=== PATIENT | male | born 1950 | race Caucasian/White ===

== ENCOUNTER 2023-07-25 05:31 | Inpatient (IN) ==
[2023-07-25] MEDS: ALBUT/IPRATROP 3MG/0.5MG NEB 3 ML VIAL NEB STA (05:53)
[2023-07-25 06:13] LABS: Hemoglobin 11.5 g/dl (14.0-18.0); Mean Corpuscular Hemoglobin 29.9 pg (25.0-34.0); Mean Corpuscular Hgb Conc 32.9 g/dL (32.0-36.0); Mean Corpuscular Volume 90.9 fL (80.0-100.0); Mean Platelet Volume 9.4 fL (9.4-12.4); Platelet Count 256 K/uL (130-400); RDW Coefficient of Variation 13.6 % (11.5-14.5); RDW Standard Deviation 45.5 fL (36.4-46.3); Red Blood Count 3.85 M/uL (4.70-6.10); White Blood Count 14.53 K/ul (4.8-10.8)
[2023-07-25 06:28] LABS: Prothrombin Time 55.1 Seconds (9.0-12.0)
[2023-07-25 06:48] LABS: INR 5.6 (0.9-1.1)
[2023-07-25 06:52] LABS: Adenovirus PCR Not Detected (NotDetected); Bordetella parapertussis PCR Not Detected (NotDetected); Bordetella pertussis PCR Not Detected (NotDetected); Chlamydia pneumoniae PCR Not Detected (NotDetected); Coronavirus 229E PCR Not Detected (NotDetected); Coronavirus CoV-2 (COVID19)PCR Not Detected (NotDetected); Coronavirus HKU1 PCR Not Detected (NotDetected); Coronavirus NL63 PCR Not Detected (NotDetected); Coronavirus OC43PCR Not Detected (NotDetected); Human Metapneumovirus PCR Not Detected (NotDetected); Influenza A PCR Not Detected (NotDetected); Influenza B PCR Not Detected (NotDetected); Mycoplasma pneumoniae PCR Not Detected (NotDetected); Parainfluenza Virus 1 PCR Not Detected (NotDetected); Parainfluenza Virus 2 PCR Not Detected (NotDetected); Parainfluenza Virus 3 PCR Not Detected (NotDetected); Parainfluenza Virus 4 PCR Not Detected (NotDetected); Respiratory Syncytial VirusPCR Not Detected (NotDetected); Rhinovirus/Enterovirus PCR Not Detected (NotDetected)
[2023-07-25 07:01] LABS: Basophils # (auto) 0.04 K/uL (0.00-0.20); Basophils % (auto) 0.3 %; Eosinophils # (auto) 0.04 K/uL (0.00-0.50); Eosinophils % (auto) 0.3 %; Immature Granulocytes # (auto) 0.03 K/uL (0.01-0.20); Immature Granulocytes % (auto) 0.2 %; Lymphocytes # (auto) 0.24 K/uL (1.20-3.40); Lymphocytes % (auto) 1.7 %; Monocytes # (auto) 0.92 K/uL (0.11-0.59); Monocytes % (auto) 6.3 %; Neutrophils # (auto) 13.26 K/uL (1.40-6.50); Neutrophils % (auto) 91.2 %; Ovalocytes 1+; Toxic Granulation 2+
--- NOTE | 2023-07-25 07:04 | XRay Report ---
XR chest 1V portable HISTORY: 73 years-old Male sob acute shortness of breath COMPARISON: KUB of same day TECHNIQUE: AP view of the chest FINDINGS: Partially imaged abdominal aortic endograft. No pneumothorax, pleural effusion or airspace consolidat ion. Eventration of the right hemidiaphragm. The heart is normal in size. The bones appear grossly in tact. IMPRESSION: No acute process. ACT 112: Negative or not required by law. The above report was generated using voice recognition software. It may contain grammatical, syntax o r spelling errors. Electronically signed by: Melvin Gonzalez M.D. 07/25/2023 7:02 AM
--- NOTE | 2023-07-25 07:04 | Emergency Department Note ---
Impression & Plan Acute exacerbation of chronic obstructive pulmonary disease, Shortness of breath, Ileus, Aspiration pneumonia, Supratherapeutic INR, Leakage of aortic graft ED Provider Note NAME: MAGDALENA TRACEY AGE: 73 SEX: M : 1950 ARRIVES VIA: Ambulance INFORMANT: Patient, ED PROVIDER(S): Marvin Jacob MD CHIEF COMPLAINT: Shortness of breath/tachycardia HPI: This is a 73-year-old male with recent history of AAA repair complicated by CVA, ileus presenting for shortness of breath. Patient notes that he does feel significantly short of breath at this time. Has been gone since last evening. He is a somewhat limited historian mentions that his abdomen has been distended but he has no current pain. He notes that he does take Coumadin as a blood thinner. He has no current chest pain. He reports no fevers. He reports that his recent stroke made his left side of his right side of his body slightly more weak. ROS: See above HPI for pertinent positives & negatives. A total of 10 systems reviewed and were otherwise negative. PHYSICAL EXAMINATION: General: resting comfortably in no acute distress Head: Normocephalic and atraumatic Eyes: Normal inspection, extraocular muscles intact Ear, nose, throat: Normal external exam Neck: Normal range of motion Respiratory: lungs clear to auscultation bilaterally Cardiovascular: Regular rate/rhythm, no murmur GI: Distended abdomen without tenderness Extremities: moves all extremities Neuro: Alert, awake, no focal deficits, no motor drift in all extremities Skin: Warm, dry, and intact MEDICAL DECISION MAKING: This is 73-year-old male with history of recent AAA repair/CVA/ileus presented for shortness of breath patient history of A-fib as well as COPD. Currently on warfarin. -INR is over 5 at this time. -ECG independently interpreted by me with likely atrial fibrillation, rate of 136, normal QRS, normal QTc, no ST segment elevations consistent with STEMI criteria -Patient is distended in his abdomen but is currently no pain. Will do CTA of the chest/abdomen due to rule out aortic injury due to his recent repair. -Chest Xray independently interpreted by me showing no pneumothorax, focal opacity, or pleural effusions. -KUB of the abdomen/pelvis shows distended bowel loops as independently by me -CT of the chest does reveal dissection/PE, possible aspiration -CT of the abdomen/pelvis does reveal endoleak as well as acute renal infarct. I discussed these findings with on-call vascular surgery at [facility] who states that upon record review that these are similar findings when patient was the hospital a few weeks ago. I was able to confirm this by looking at outside records as reported by medical case manager. Appears that this renal infarct is similar as well as the endoleak. Otherwise patient would not require transfer due to his vascular etiology. He is having shortness of breath, somewhat improved after albuterol. Will give steroids at this time for suspected COPD exacerbation. Otherwise there is read as of ileus however patient had 2 large bowel movements here. -Will admit to hospitalist service here for further workup/treatment of his respiratory condition including possible COPD exacerbation Differential diagnosis: Dissection, endoleak, COPD, pneumonia, ileus ER treatment provided: See below Diagnostics interpreted by me: ECG: See above Cardiac Monitoring: An order was placed for continuous cardiac monitoring. The monitor shows a rate of 118 with atrial fibrillation rhythm. Laboratory studies: As stated above and show below. Imaging studies: See below. Past Med/Surg History Medical History AAA (abdominal aortic aneurysm) CAD (coronary artery disease) hx of mI in 1992 HLD (hyperlipidemia) HTN (hypertension) COPD (chronic obstructive pulmonary disease) History of CVA (cerebrovascular accident) PAF (paroxysmal atrial fibrillation) Chronic hypoxic respiratory failure T2DM (type 2 diabetes mellitus) Surgical History H/O thoracic aortic aneurysm repair 2021 Hx of cataract surgery History of tonsillectomy and adenoidectomy Hx of appendectomy S/P AAA repair 07/14/23 endovascular repair of endoleak S/P EVAR 02/20/2021 with [place] Stent graft performed at [facility] in [place]. He presented to [facility] 04/21/2021 with acute, severe epigastric pain, nausea, and vomiting. Work-up included CT abdomen/pelvis revealing s/p EVAR with possible type 1 vs type 3 endoleak. S/P coil embolization of aneurysmal sac and coil embolization of feeding lumbar arteries by Dr. Carrillo on 07/10/2021 Post operative imaging demonstrated persistent endoleak, with some concern regarding a Type 1a endoleak. S/P physician modified endograft on 07/14/2023 Family History Other Diabetes Social History Smoking Status: Former smoker Tobacco Type: Cigarettes Preferred Language: Turkish Feels Safe at Home: Yes Allergies Allergies Allergy/AdvReac Type Severity Reaction Status Date / Time diltiazem Allergy Severe throat Verified 07/25/23 10:55 tightness doxycycline Allergy Severe SOB Verified 07/25/23 10:55 mometasone furoate AdvReac Mild nausea and Verified 07/25/23 10:55 [From Asmaneconor Martinez] vomiting Home Meds Home Medications Medication Instructions Recorded Confirmed atorvastatin 40 mg tablet 80 mg PO DAILY 07/25/23 07/25/23 baclofen 10 mg tablet 10 mg PO Q8H 07/25/23 07/25/23 clopidogrel 75 mg tablet 75 mg PO DAILY 07/25/23 07/25/23 cyproheptadine 4 mg tablet 4 mg PO HS 07/25/23 07/25/23 docusate sodium 100 mg tablet 100 mg PO BID 07/25/23 07/25/23 fluticasone furoate 100 1 inh inhalation DAILY 07/25/23 07/25/23 mcg-vilanterol 25 mcg/dose inhalation powder gabapentin 300 mg capsule 300 mg PO TID 07/25/23 07/25/23 pantoprazole 40 mg tablet,delayed 40 mg PO DAILY 07/25/23 07/25/23 release therapeutic multivitamin 1 tab PO DAILY 07/25/23 07/25/23 umeclidinium 62.5 mcg/actuation 1 inh inhalation DAILY 07/25/23 07/25/23 blister powder for inhalation ursodiol 250 mg tablet 125 mg PO BID 07/25/23 07/25/23 warfarin 5 mg tablet 10 mg PO DAILY 07/25/23 07/25/23 Results & Data (ED) Vital Signs Vital Signs - 24 hr 07/25/23 05:42 07/25/23 05:47 07/25/23 05:47 Temperature 36.8 C Temperature Source Oral Pulse Rate 134 H 134 H Pulse Rate [Apical] Pulse Rhythm Regular Pulse Rhythm [Apical] Pulse Strength Normal Pulse Strength [Apical] Respiratory Rate 27 H Respiratory Effort / Characteristics Non-Labored Spontaneous Short of Breath SOB on Exertion Non-Labored Spontaneous Short of Breath SOB on Exertion Respiratory Pattern Tachypnea Tachypnea Blood Pressure 172/109 H Blood Pressure [Right Arm] Blood Pressure Mean 130 Blood Pressure Mean [Right Arm] Blood Pressure Position Semi-fowlers Blood Pressure Position [Right Arm] Pulse Oximetry 95 Oxygen Delivery Method Nasal Cannula Nasal Cannula Oxygen Flow Rate 4 3 Sepsis Recent Fever Within 48 Hours No Sepsis New/Unexplained Change in Mental Status No Sepsis Action Taken by Nursing Physician Notified 07/25/23 05:47 07/25/23 06:00 07/25/23 08:00 Temperature 36.8 C Temperature Source Oral Pulse Rate Pulse Rate [Apical] 132 H 121 H Pulse Rhythm Pulse Rhythm [Apical] Regular Pulse Strength Pulse Strength [Apical] Normal Respiratory Rate 34 H 28 H Respiratory Effort / Characteristics Non-Labored Spontaneous Short of Breath SOB on Exertion Respiratory Pattern Tachypnea Blood Pressure Blood Pressure [Right Arm] 148/94 H 105/72 Blood Pressure Mean Blood Pressure Mean [Right Arm] 112 83 Blood Pressure Position Blood Pressure Position [Right Arm] Semi-fowlers Pulse Oximetry 95 96 99 Oxygen Delivery Method Nasal Cannula Nasal Cannula Nasal Cannula Oxygen Flow Rate 3 4 4 Sepsis Recent Fever Within 48 Hours Sepsis New/Unexplained Change in Mental Status Sepsis Action Taken by Nursing 07/25/23 09:45 Temperature Temperature Source Pulse Rate 116 H Pulse Rate [Apical] Pulse Rhythm Pulse Rhythm [Apical] Pulse Strength Pulse Strength [Apical] Respiratory Rate Respiratory Effort / Characteristics Respiratory Pattern Blood Pressure Blood Pressure [Right Arm] Blood Pressure Mean Blood Pressure Mean [Right Arm] Blood Pressure Position Blood Pressure Position [Right Arm] Pulse Oximetry Oxygen Delivery Method Oxygen Flow Rate Sepsis Recent Fever Within 48 Hours Sepsis New/Unexplained Change in Mental Status Sepsis Action Taken by Nursing Laboratory Data 07/25/23 05:48 07/25/23 05:48 Lab Results 07/25/23 07/25/23 Range/Units 05:48 05:51 WBC 14.53 H (4.8-10.8) K/ul RBC 3.85 L (4.70-6.10) M/uL Hgb 11.5 L (14.0-18.0) g/dl Hct 35.0 L (42.0-52.0) % MCV 90.9 (80.0-100.0) fL MCH 29.9 (25.0-34.0) pg MCHC 32.9 (32.0-36.0) g/dL RDW Std Deviation 45.5 (36.4-46.3) fL RDW Coeff of David 13.6 (11.5-14.5) % Plt Count 256 (130-400) K/uL MPV 9.4 (9.4-12.4) fL Immature Gran % (Auto) 0.2 % Neut % (Auto) 91.2 % Lymph % (Auto) 1.7 % Arroyo % (Auto) 6.3 % Eos % (Auto) 0.3 % Baso % (Auto) 0.3 % Neut # (Auto) 13.26 H (1.40-6.50) K/uL Lymph # (Auto) 0.24 L (1.20-3.40) K/uL Arroyo # (Auto) 0.92 H (0.11-0.59) K/uL Eos # (Auto) 0.04 (0.00-0.50) K/uL Baso # (Auto) 0.04 (0.00-0.20) K/uL Immature Gran # (Auto) 0.03 (0.01-0.20) K/uL Toxic Granulation 2+ Ovalocytes 1+ PT 55.1 H (9.0-12.0) Seconds INR 5.6 H* (0.9-1.1) Sodium 138 (136-145) mmol/L Potassium 4.1 (3.5-5.1) mmol/L Chloride 96 L (98-107) mmol/L Carbon Dioxide 30 (21-32) mmol/L Anion Gap 12 H (3-11) BUN 39 H (6-23) mg/dl Creatinine 0.86 (0.6-1.4) mg/dl Est Cr Clr Drug Dosing 69.2 ml/min Est GFR ( Amer) 98.3 Est GFR (Non-Af Amer) 84.8 BUN/Creatinine Ratio 45.3 H (10-20) Glucose 128 H (70-99(Fasting)) mg/dl Calcium 9.5 (8.6-10.3) mg/dl Total Bilirubin 1.0 (0.2-1.0) mg/dl AST 42 H (13-39) U/L ALT 54 H (7-52) U/L Alkaline Phosphatase 150 H (34-104) U/L Troponin I High Sens 11.4 (0-20) pg/ml B-Natriuretic Peptide 60 (0-100) pg/ml Total Protein 6.9 (6.0-8.3) gm/dl Albumin 3.6 (3.4-5.0) gm/dl Globulin 3.3 (2.5-4.0) gm/dl Albumin/Globulin Ratio 1.1 (0.9-2) Adenovirus (PCR) Not Detected (NotDetected) B. pertussis DNA (PCR) Not Detected (NotDetected) B.parapertussis DNA PCR Not Detected (NotDetected) C. pneumoniae DNA (PCR) Not Detected (NotDetected) Coronavirus OC43 (PCR) Not Detected (NotDetected) Coronavirus HKU1 (PCR) Not Detected (NotDetected) Coronavirus 229E (PCR) Not Detected (NotDetected) SARS-CoV-2 (PCR) Not Detected (NotDetected) Coronavirus NL63 (PCR) Not Detected (NotDetected) Human Metapneumovir PCR Not Detected (NotDetected) Influenza Type A (PCR) Not Detected (NotDetected) Influenza Type B (PCR) Not Detected (NotDetected) M. pneumoniae (PCR) Not Detected (NotDetected) Parainfluenza 1 (PCR) Not Detected (NotDetected) Parainfluenza 2 (PCR) Not Detected (NotDetected) Parainfluenza 3 (PCR) Not Detected (NotDetected) Parainfluenza 4 (PCR) Not Detected (NotDetected) RSV (PCR) Not Detected (NotDetected) Entero/Rhino (PCR) Not Detected (NotDetected) Administered Medications Albuterol (Albut/Ipratrop 3mg/0.5mg Neb 3 Ml Vial) 3 ml NEB Q4HWA [facility]; Protocol Stop: 08/24/23 12:32 Last Admin: 07/25/23 12:53 Dose: Not Given Documented By: [id number] Budesonide (Budesonide 0.5 Mg/2 Ml Vial (Pulmicort)) 0.5 mg NEB BIDR PLACIDO Stop: 08/24/23 12:32 Last Admin: 07/25/23 12:52 Dose: 0.5 mg Documented By: [id number] Formoterol Fumarate (Formoterol 20 Mcg/2 Ml Vial) 20 mcg NEB BIDR PLACIDO Stop: 08/24/23 12:32 Last Admin: 07/25/23 12:52 Dose: 20 mcg Documented By: [id number] Gabapentin (Gabapentin 300 Mg Cap) 300 mg PO TID PLACIDO Stop: 08/24/23 13:59 Last Admin: 07/25/23 13:34 Dose: 300 mg Documented By: AVERY Sodium Chloride (Nss) 1,000 mls @ 80 mls/hr IV .[id number] PLACIDO Stop: 08/24/23 12:32 Last Admin: 07/25/23 13:34 Dose: 80 mls/hr Documented By: AVERY Discontinued Medications Albuterol (Albut/Ipratrop 3mg/0.5mg Neb 3 Ml Vial) 3 ml NEB NOW STA; Protocol Stop: 07/25/23 05:46 Last Admin: 07/25/23 05:53 Dose: 3 ml Documented By: Piperacillin Sod/Tazobactam Sod (Zosyn) 4.5 gm in 100 mls @ 200 mls/hr IV NOW ONE Stop: 07/25/23 10:44 Last Infusion: 07/25/23 11:28 Dose: Infused Documented By: Admin: 07/25/23 10:55 Dose: 200 mls/hr Documented By: AVERY Ioversol (Optiray 320 125ml) 112 ml IV ONCE ONE Stop: 07/25/23 07:11 Last Admin: 07/25/23 07:10 Dose: 112 ml Documented By: DELORIS Methylprednisolone (Methylprednisolone 125 Mg/2 Ml Vial) 125 mg IV NOW STA Stop: 07/25/23 09:40 Last Admin: 07/25/23 10:55 Dose: 125 mg Documented By: AVERY Imaging Data Radiologist's Impression: Chest X-Ray 07/25/23 05:43 XR chest 1V portable HISTORY: 73 years-old Male sob acute shortness of breath COMPARISON: KUB of same day TECHNIQUE: AP view of the chest FINDINGS: Partially imaged abdominal aortic endograft. No pneumothorax, pleural effusion or airspace consolidation. Eventration of the right hemidiaphragm. The heart is normal in size. The bones appear grossly intact. IMPRESSION: No acute process. ACT 112: Negative or not required by law. The above report was generated using voice recognition software. It may contain grammatical, syntax or spelling errors. Electronically signed by: Melvin Gonzalez M.D. 07/25/2023 7:02 AM KUB X-Ray 07/25/23 05:45 KUB HISTORY: Acute generalized abdominal pain with distention distended COMPARISON: None. FINDINGS: Gaseous distended loops of large and small bowel. Aortobiiliac stent graft is noted along with bilateral renal arterial stents. Apparent embolization coils project over the right abdomen. No renal calculi. No ureteral calculi. No pneumoperitoneum or pneumatosis. No fracture. IMPRESSION: Distended gas-filled loops of large and small bowel may represent ileus versus distal obstruction. Follow-up recommended. ACT 112: Negative or not required by law. The above report was generated using voice recognition software. It may contain grammatical, syntax or spelling errors. Electronically signed by: Melvin Gonzalez M.D. 07/25/2023 8:29 AM Abdomen/Pelvis CTA 07/25/23 06:34 CT angio abd pelvis wo/w con HISTORY: 73 years-old Male dissection/AAA rupture (recent repair, CVA, ileus) acute generalized abdominal pain with tachycardia. Abdominal aortic aneurysm repair 1 week earlier. COMPARISON: None TECHNIQUE: CTA abdomen and pelvis was obtained with and without IV contrast. Additional 3-D rendered images were generated from a separate workstation and submitted for review. A dose lowering technique was used consistent with the principals of MAYELIN. FINDINGS: Motion degraded exam. CTA: The heart is normal in size. Partially imaged coronary arterial calcifications. Aortobiiliac stent graft is patent and traverses a tejon infrarenal abdominal aortic aneurysm measuring approximately 6.4 x 6.3 cm. Within the lumen of the infrarenal abdominal aorta there is a 3.7 cm hyperdense focus on image 169 series 13 suggestive of an endoleak. There are additional endoleaks noted along the proximal aspect of the graft on image 124 series 13. Evaluation is limited secondary to surrounding streak artifact with embolization coils. The imaged femoral arteries are patent. Patent celiac, superior mesenteric and renal arterial grafts. There is apparent occlusion involving a left inferior pole renal arterial branch, suboptimally visualized secondary to the motion artifact. CT ABDOMEN/PELVIS: Pulmonary emphysema with right lower lobe mucus plugging and mild right lower lobe tree-in-bud nodules. 1.2 cm solid nodule noted within the right lower lobe on image 42. Right lower lobe pulmonary nodules measure up to 7 mm. Mild linear right basilar consolidation. Small left pleural effusion. Nonspecific heterogeneity of the spleen, adrenal glands and pancreas appear unremarkable. Cholelithiasis without CT evidence of acute cholecystitis. Hepatic cysts measure up to 4.7 cm. Additional ill-defined hypodensities of the liver which are mostly subcentimeter tightly to small to characterize. There is no hydronephrosis. There is an acute infarct of the inferior pole left kidney measuring up to approximate 4.7 cm. Decompressed urinary bladder with Ynu catheter in place. Layering hyperdense material noted within the urinary bladder lumen. Prostatomegaly. No lymphadenopathy identified. Distended fluid-filled stomach. Indeterminate hyperdense material noted within the rectal lumen. Air and fluid filled loops of large and small bowel. Large bowel is dilated measuring up to 8.4 cm. Small bowel loops measure up to approximately 3 cm. There is a small fat and fluid filled right inguinal hernia. There is a moderate-sized left inguinal hernia which contains trace fluid, mesenteric fat and descending colon. Large bowel distal to this is also mildly dilated. Colonic diverticulosis. Mild generalized body wall edema. No acute fracture identified. Chronic L5 pars defects with grade 1 anterolisthesis. IMPRESSION: 1. Motion degraded exam. 2. Patent aortobiiliac stent graft with patent grafts involving the celiac, superior mesenteric and renal arteries. 3. [place] abdominal aortic aneurysm measures up to 6.4 cm. Endoleaks are noted involving the graft as above , suboptimally evaluated secondary to artifact. 4. There is apparent occlusion involving a left inferior pole renal arterial branch with a moderate sized acute infarct of the inferior pole left kidney. 5. Distended air and fluid-filled loops of large and small bowel. There is a moderate sized left inguinal hernia containing mesenteric fat and the descending sigmoid junction with gaseous distention also seen distal to this. Findings likely represent an ileus, however close follow-up is needed in order to exclude a partial obstruction. 6. Cholelithiasis. 7. Pulmonary emphysema, bibasilar mucous plugging and right lower lobe pulmonary nodules with small left pleural effusion. Please refer to the chest CT of same day for additional findings. ACT 112: Negative or not required by law. The above report was generated using voice recognition software. It may contain grammatical, syntax or spelling errors. Electronically signed by: Melvin Gonzalez M.D. 07/25/2023 8:03 AM Chest CTA 07/25/23 06:34 CHEST CTA for AORTIC DISSECTION [address] DOSE: 3127.23 mGy.cm HISTORY: Shortness of breath. Tachycardia. PE / Dissection (recent AAA repair/CVA) TECHNIQUE: Multiaxial CT images of the chest were performed both before and after the intravenous administration of contrast to evaluate the aorta. 3D/MIP images were also obtained. Sagittal and coronal reformations were also reviewed. A dose lowering technique was utilized adhering to the principles of ALARA. COMPARISON STUDY: None. FINDINGS: Noncontrast imaging through the chest shows no evidence for an intramural hematoma within the thoracic aorta. Mild to moderate calcified plaque within the thoracic aorta. The thoracic aorta is normal in caliber with no evidence for a dissection. Please refer to the same day abdomen and pelvis CT for further evaluation of the stent graft repair of the aorta and proximal abdominal vessels. There is a trace left pleural effusion. The heart is normal in size. Mild left ventricular hypertrophy is noted. Moderate coronary artery calcifications. The main pulmonary arteries are patent. The study was not performed as a dedicated PE study. Normal esophagus. No mediastinal or hilar lymphadenopathy. No mediastinal hematoma. Mild superior endplate compression fractures at T12 and L1 are age indeterminate but likely chronic. No pneumothorax. Advanced emphysema is noted. Partial mucoid opacification of the trachea and right lower lobe bronchi with a linear density at the base the right lower lobe. This may represent atelectasis or a pneumonitis secondary to aspiration. There are 2 nodules within the right lower lobe measuring 7 mm and 1.1 cm on images 198 and 214, respectively. A few additional nodular densities within the right lower lobe. A 4 mm nodule within the right upper lobe on image 127. No evidence for pulmonary edema. A 4 mm nodule within the left lower lobe on image 194. A 4 mm nodule within the left upper lobe on image 135. IMPRESSION: 1. No evidence for an aortic dissection. 2. Please refer to same day abdomen and pelvis CT for further evaluation of the abdominal structures. 3. No evidence for a central pulmonary embolus. 4. Mucoid material within the trachea and right lower lobe bronchi which could be due to prior aspiration. Linear density at the right lower lobe may represent subsegmental atelectasis or an aspiration pneumonitis. 5. Scattered indeterminate pulmonary nodules with the largest in the ascending right lower lobe measuring 11 mm. [address] follow-up recommended to ensure stability. 6. Advanced emphysema. 7. Trace left pleural effusion. ACT 112: Negative or not required by law. Electronically signed by: Wilver Roman M.D. 07/25/2023 8:28 AM Discharge Plan Visit Data Chief Complaint: Shortness of Breath/Dyspnea Stated Complaint: SOB, Tachycardia ED Provider: Marvin Jacob Discharge Problem: Acute exacerbation of chronic obstructive pulmonary disease, Shortness of breath, Ileus, Aspiration pneumonia, Supratherapeutic INR, Leakage of aortic graft Patient Disposition: Admitted As Inpatient Discharge Instructions Interventions: ED Discharge Assessment Last Done: 07/25/23 12:34
[2023-07-25 07:10] LABS: Troponin I High Sensitivity 11.4 pg/ml (0-20)
[2023-07-25] MEDS: OPTIRAY 320 125ml IV ONE (07:10)
[2023-07-25 07:28] LABS: Albumin Level 3.6 gm/dl (3.4-5.0); Calcium 9.5 mg/dl (8.6-10.3); Potassium 4.1 mmol/L (3.5-5.1)
[2023-07-25 07:33] LABS: Albumin Globulin Ratio 1.1 (0.9-2); BUN Creatinine Ratio 45.3 (10-20); Globulin 3.3 gm/dl (2.5-4.0); Total Protein 6.9 gm/dl (6.0-8.3)
[2023-07-25 07:45] LABS: Creatinine Clr Calc Pharmacy 69.2 ml/min; Est GFR (African American) 98.3; Est GFR (Non-African American) 84.8
--- NOTE | 2023-07-25 08:06 | CT Scan Report ---
CT angio abd pelvis wo/w con HISTORY: 73 years-old Male dissection/AAA rupture (recent repair, CVA, ileus) acute generalized abdo roseanna pain with tachycardia. Abdominal aortic aneurysm repair 1 week earlier. COMPARISON: None TECHNIQUE: CTA abdomen and pelvis was obtained with and without IV contrast. Additional 3-D rendered images were generated from a separate workstation and submitted for review. A dose lowering technique was used consistent with the principals of MAYELIN. FINDINGS: Motion degraded exam. CTA: The heart is normal in size. Partially imaged coronary arterial calcifications. Aortobiiliac stent gr aft is patent and traverses a [place] infrarenal abdominal aortic aneurysm measuring approximately 6.4 x 6.3 cm. Within the lumen of the infrarenal abdominal aorta there is a 3.7 cm hyperdense focus on i mage 169 series 13 suggestive of an endoleak. There are additional endoleaks noted along the proximal aspect of the graft on image 124 series 13. Evaluation is limited secondary to surrounding streak ar tifact with embolization coils. The imaged femoral arteries are patent. Patent celiac, superior mesenteric and renal arterial grafts. There is apparent occlusion involving a left inferior pole renal arterial branch, suboptimally visualized secondary to the motion artifact. CT ABDOMEN/PELVIS: Pulmonary emphysema with right lower lobe mucus plugging and mild right lower lobe tree-in-bud nodule s. 1.2 cm solid nodule noted within the right lower lobe on image 42. Right lower lobe pulmonary nodu les measure up to 7 mm. Mild linear right basilar consolidation. Small left pleural effusion. Nonspec ific heterogeneity of the spleen, adrenal glands and pancreas appear unremarkable. Cholelithiasis wit hout CT evidence of acute cholecystitis. Hepatic cysts measure up to 4.7 cm. Additional ill-defined h ypodensities of the liver which are mostly subcentimeter tightly to small to characterize. There is no hydronephrosis. There is an acute infarct of the inferior pole left kidney measuring up t o approximate 4.7 cm. Decompressed urinary bladder with Yun catheter in place. Layering hyperdense material noted within the urinary bladder lumen. Prostatomegaly. No lymphadenopathy identified. Distended fluid-filled stomach. Indeterminate hyperdense material noted within the rectal lumen. Air and fluid filled loops of large and small bowel. Large bowel is dilated measuring up to 8.4 cm. Small bowel loops measure up to approximately 3 cm. There is a small fat and fluid filled right inguinal h ernia. There is a moderate-sized left inguinal hernia which contains trace fluid, mesenteric fat and descending colon. Large bowel distal to this is also mildly dilated. Colonic diverticulosis. Mild gen eralized body wall edema. No acute fracture identified. Chronic L5 pars defects with grade 1 anteroli sthesis. IMPRESSION: 1. Motion degraded exam. 2. Patent aortobiiliac stent graft with patent grafts involving the celiac, superior mesenteric and r enal arteries. 3. [place] abdominal aortic aneurysm measures up to 6.4 cm. Endoleaks are noted involving the graft as above , suboptimally evaluated secondary to artifact. 4. There is apparent occlusion involving a left inferior pole renal arterial branch with a moderate s ized acute infarct of the inferior pole left kidney. 5. Distended air and fluid-filled loops of large and small bowel. There is a moderate sized left ingu inal hernia containing mesenteric fat and the descending sigmoid junction with gaseous distention als o seen distal to this. Findings likely represent an ileus, however close follow-up is needed in order to exclude a partial obstruction. 6. Cholelithiasis. 7. Pulmonary emphysema, bibasilar mucous plugging and right lower lobe pulmonary nodules with small l eft pleural effusion. Please refer to the chest CT of same day for additional findings. ACT 112: Negative or not required by law. The above report was generated using voice recognition software. It may contain grammatical, syntax o r spelling errors. Electronically signed by: Melvin Gonzalez M.D. 07/25/2023 8:03 AM
--- NOTE | 2023-07-25 08:30 | CT Scan Report ---
CHEST CTA for AORTIC DISSECTION CT DOSE: 3127.23 mGy.cm HISTORY: Shortness of breath. Tachycardia. PE / Dissection (recent AAA repair/CVA) TECHNIQUE: Multiaxial CT images of the chest were performed both before and after the intravenous adm inistration of contrast to evaluate the aorta. 3D/MIP images were also obtained. Sagittal and coronal reformations were also reviewed. A dose lowering technique was utilized adhering to the principles of ALARA. COMPARISON STUDY: None. FINDINGS: Noncontrast imaging through the chest shows no evidence for an intramural hematoma within t he thoracic aorta. Mild to moderate calcified plaque within the thoracic aorta. The thoracic aorta is normal in caliber with no evidence for a dissection. Please refer to the same day abdomen and pelvis CT for further evaluation of the stent graft repair of the aorta and proximal abdominal vessels. The re is a trace left pleural effusion. The heart is normal in size. Mild left ventricular hypertrophy i s noted. Moderate coronary artery calcifications. The main pulmonary arteries are patent. The study w as not performed as a dedicated PE study. Normal esophagus. No mediastinal or hilar lymphadenopathy. No mediastinal hematoma. Mild superior endplate compression fractures at T12 and L1 are age indetermi nevaeh but likely chronic. No pneumothorax. Advanced emphysema is noted. Partial mucoid opacification o f the trachea and right lower lobe bronchi with a linear density at the base the right lower lobe. Th is may represent atelectasis or a pneumonitis secondary to aspiration. There are 2 nodules within the right lower lobe measuring 7 mm and 1.1 cm on images 198 and 214, respectively. A few additional nod ular densities within the right lower lobe. A 4 mm nodule within the right upper lobe on image 127. N o evidence for pulmonary edema. A 4 mm nodule within the left lower lobe on image 194. A 4 mm nodule within the left upper lobe on image 135. IMPRESSION: 1. No evidence for an aortic dissection. 2. Please refer to same day abdomen and pelvis CT for further evaluation of the abdominal structures. 3. No evidence for a central pulmonary embolus. 4. Mucoid material within the trachea and right lower lobe bronchi which could be due to prior aspira tion. Linear density at the right lower lobe may represent subsegmental atelectasis or an aspiration pneumonitis. 5. Scattered indeterminate pulmonary nodules with the largest in the ascending right lower lobe measu ring 11 mm[address] follow-up recommended to ensure stability. 6. Advanced emphysema. 7. Trace left pleural effusion. ACT 112: Negative or not required by law. Electronically signed by: Wilver Roman M.D. 07/25/2023 8:28 AM
--- NOTE | 2023-07-25 08:31 | XRay Report ---
KUB HISTORY: Acute generalized abdominal pain with distention distended COMPARISON: None. FINDINGS: Gaseous distended loops of large and small bowel. Aortobiiliac stent graft is noted along w ith bilateral renal arterial stents. Apparent embolization coils project over the right abdomen. No renal calculi. No ureteral calculi. No pneumoperitoneum or pneumatosis. No fracture. IMPRESSION: Distended gas-filled loops of large and small bowel may represent ileus versus distal obstruction. Fo llow-up recommended. ACT 112: Negative or not required by law. The above report was generated using voice recognition software. It may contain grammatical, syntax o r spelling errors. Electronically signed by: Melvin Gonzalez M.D. 07/25/2023 8:29 AM
--- NOTE | 2023-07-25 10:15 | History & Physical Report ---
Date of Service July 25, 2023 Assessment & Plan (1) Shortness of breath: (2) Aspiration pneumonia: (3) Ileus: (4) Supratherapeutic INR: (5) S/P endovascular aneurysm repair: (6) Chronic hypoxic respiratory failure: (7) History of CVA (cerebrovascular accident): (8) COPD (chronic obstructive pulmonary disease): Plan This is a 73-year-old male who has significant past medical history of COPD with chronic hypoxic respiratory failure on 3 L of O2 via NC, PAF, CAD, HTN, HLD, prior right thalamic CVA, T2DM, endovascular repair of AAA in February 2021 who presents to ED secondary to shortness of breath. Please refer to Dr. Bassett addendum for details regarding assessment and plan. A total of 76 minutes was spent coordinating, documenting, and providing care for this patient excluding time spent in the performance of separately billed services. This included personally viewing all current laboratories and imaging studies, medication reconciliation, outpatient chart review, and discussion with specialists. History of Present Illness Chief Complaint: Shortness of breath Primary Care Provider: Joshua Yusuf PA-C This is a 73-year-old male who has significant past medical history of COPD with chronic hypoxic respiratory failure on 3 L of O2 via NC, PAF, CAD, HTN, HLD, prior right thalamic CVA, T2DM, endovascular repair of AAA in February 2021 who presents to ED secondary to shortness of breath. Of significance patient had recent [place] [facility] In regards to his prior endovascular repair of AAA, in July 2021 he had a coil embolization of his aneurysm sac as well as the feeding lumbar arteries. Despite this on follow-up patient continued to have a persistent endovascular leak with further enlargement of his abdominal aneurysm. On 07/13/2023 he consented to be hospitalized for further endovascular repair and he had a placement of a modified endovascular graft, dated for flow to his inferior superior mesenteric arteries as well as bilateral renal arteries. His hospital course postoperatively was complicated with postoperative ileus requiring patient to undergo parenteral nutrition. He developed urinary retention requiring Yun catheter placement. On postop day 4 he noted to have significant cognitive changes involving speech and hemiparesis of right side. Initial CT scan was negative however MRI confirmed acute infarct in the left brigido, left thalamus, hippocampus, corpus callosum, temporal and occipital lobes as well as bilateral cerebellum. CT of abdomen pelvis also confirmed development of right lower lobe possible aspiration and significant infarction of lower pole of left kidney. Once stabilized he was discharged to [facility] where he was admitted on 07/22/2023. While being admitted to [facility] he had been undergoing rehab. Granddaughter at bedside states that he was starting to eat solid foods. He has had limited mobility since admission to rehab. He developed subsequent shortness of breath. He has a persistent productive cough and is having difficulty expectorating sputum. When he does it is brown. He feels more short of breath than baseline. He denies any fever, chills, sweats, chest pain, hemoptysis, nausea, vomiting or abdominal pain. He continues to have Yun catheter in place. Granddaughter at bedside states that he failed a voiding trial and had to have a Yun catheter replaced. He continues to have a distended abdomen and passing minimal gas. He did have 2 bowel movements per patient. Allergies Allergy/AdvReac Type Severity Reaction Status Date / Time diltiazem Allergy Severe throat Verified 07/25/23 10:55 tightness doxycycline Allergy Severe SOB Verified 07/25/23 10:55 mometasone furoate AdvReac Mild nausea and Verified 07/25/23 10:55 [From Asmaneconor Martinez] vomiting Home Medications Medication Instructions Recorded Confirmed Type atorvastatin 40 mg tablet 80 mg PO DAILY 07/25/23 07/25/23 History baclofen 10 mg tablet 10 mg PO Q8H 07/25/23 07/25/23 History clopidogrel 75 mg tablet 75 mg PO DAILY 07/25/23 07/25/23 History cyproheptadine 4 mg tablet 4 mg PO HS 07/25/23 07/25/23 History docusate sodium 100 mg tablet 100 mg PO BID 07/25/23 07/25/23 History fluticasone furoate 100 1 inh inhalation DAILY 07/25/23 07/25/23 History mcg-vilanterol 25 mcg/dose inhalation powder gabapentin 300 mg capsule 300 mg PO TID 07/25/23 07/25/23 History pantoprazole 40 mg tablet,delayed 40 mg PO DAILY 07/25/23 07/25/23 History release therapeutic multivitamin 1 tab PO DAILY 07/25/23 07/25/23 History umeclidinium 62.5 mcg/actuation 1 inh inhalation DAILY 07/25/23 07/25/23 History blister powder for inhalation ursodiol 250 mg tablet 125 mg PO BID 07/25/23 07/25/23 History warfarin 5 mg tablet 10 mg PO DAILY 07/25/23 07/25/23 History Past Med/Surg History Medical History (Updated 07/25/23 @ 11:01 by Lakshmi Márquez PA-C) AAA (abdominal aortic aneurysm) CAD (coronary artery disease) hx of mI in 1992 HLD (hyperlipidemia) HTN (hypertension) COPD (chronic obstructive pulmonary disease) History of CVA (cerebrovascular accident) PAF (paroxysmal atrial fibrillation) Chronic hypoxic respiratory failure T2DM (type 2 diabetes mellitus) Surgical History (Updated 07/25/23 @ 11:01 by Lakshmi Márquez PA-C) H/O thoracic aortic aneurysm repair 2021 Hx of cataract surgery History of tonsillectomy and adenoidectomy Hx of appendectomy S/P AAA repair 07/14/23 endovascular repair of endoleak S/P EVAR 02/20/2021 with Solsberry Stent graft performed at [facility] in [place]. He presented to [facility] 04/21/2021 with acute, severe epigastric pain, nausea, and vomiting. Work-up included CT abdomen/pelvis revealing s/p EVAR with possible type 1 vs type 3 endoleak. S/P coil embolization of aneurysmal sac and coil embolization of feeding lumbar arteries by Dr. Carrillo on 07/10/2021 Post operative imaging demonstrated persistent endoleak, with some concern regarding a Type 1a endoleak. S/P physician modified endograft on 07/14/2023 Family History (Updated 07/25/23 @ 10:46 by Lakshmi Márquez PA-C) Other Diabetes Social History Smoking Status: Former smoker Tobacco Type: Cigarettes Preferred Language: Croatian Feels Safe at Home: Yes Review of Systems Review of Systems: All systems reviewed & are unremarkable except as noted in HPI & below Physical Exam Physical Exam: please refer to Dr. Bassett addendum for physical exam findings. Results & Data Results & Data Vital Signs (Past 12 Hours) Vital Signs Temp Pulse Pulse Resp BP BP Pulse Ox 07/25/23 09:45 116 H 07/25/23 08:00 121 H 28 H 105/72 99 07/25/23 06:00 36.8 C 132 H 34 H 148/94 H 96 07/25/23 05:47 95 07/25/23 05:47 36.8 C 134 H 27 H 172/109 H 95 07/25/23 05:47 07/25/23 05:42 134 H O2 Del Method O2 Flow Rate 07/25/23 09:45 07/25/23 08:00 Nasal Cannula 4 07/25/23 06:00 Nasal Cannula 4 07/25/23 05:47 Nasal Cannula 3 07/25/23 05:47 Nasal Cannula 3 07/25/23 05:47 Nasal Cannula 4 07/25/23 05:42 Diagnostic Findings Chest X-Ray 07/25/23 05:43 XR chest 1V portable HISTORY: 73 years-old Male sob acute shortness of breath COMPARISON: KUB of same day TECHNIQUE: AP view of the chest FINDINGS: Partially imaged abdominal aortic endograft. No pneumothorax, pleural effusion or airspace consolidation. Eventration of the right hemidiaphragm. The heart is normal in size. The bones appear grossly intact. IMPRESSION: No acute process. ACT 112: Negative or not required by law. The above report was generated using voice recognition software. It may contain grammatical, syntax or spelling errors. Electronically signed by: Melvin Gonzalez M.D. 07/25/2023 7:02 AM KUB X-Ray 07/25/23 05:45 KUB HISTORY: Acute generalized abdominal pain with distention distended COMPARISON: None. FINDINGS: Gaseous distended loops of large and small bowel. Aortobiiliac stent graft is noted along with bilateral renal arterial stents. Apparent embolization coils project over the right abdomen. No renal calculi. No ureteral calculi. No pneumoperitoneum or pneumatosis. No fracture. IMPRESSION: Distended gas-filled loops of large and small bowel may represent ileus versus distal obstruction. Follow-up recommended. ACT 112: Negative or not required by law. The above report was generated using voice recognition software. It may contain grammatical, syntax or spelling errors. Electronically signed by: Melvin Gonzalez M.D. 07/25/2023 8:29 AM Abdomen/Pelvis CTA 07/25/23 06:34 CT angio abd pelvis wo/w con HISTORY: 73 years-old Male dissection/AAA rupture (recent repair, CVA, ileus) acute generalized abdominal pain with tachycardia. Abdominal aortic aneurysm repair 1 week earlier. COMPARISON: None TECHNIQUE: CTA abdomen and pelvis was obtained with and without IV contrast. Additional 3-D rendered images were generated from a separate workstation and submitted for review. A dose lowering technique was used consistent with the principals of MAYELIN. FINDINGS: Motion degraded exam. CTA: The heart is normal in size. Partially imaged coronary arterial calcifications. Aortobiiliac stent graft is patent and traverses a tuscarora infrarenal abdominal aortic aneurysm measuring approximately 6.4 x 6.3 cm. Within the lumen of the infrarenal abdominal aorta there is a 3.7 cm hyperdense focus on image 169 series 13 suggestive of an endoleak. There are additional endoleaks noted along the proximal aspect of the graft on image 124 series 13. Evaluation is limited secondary to surrounding streak artifact with embolization coils. The imaged femoral arteries are patent. Patent celiac, superior mesenteric and renal arterial grafts. There is apparent occlusion involving a left inferior pole renal arterial branch, suboptimally visualized secondary to the motion artifact. CT ABDOMEN/PELVIS: Pulmonary emphysema with right lower lobe mucus plugging and mild right lower lobe tree-in-bud nodules. 1.2 cm solid nodule noted within the right lower lobe on image 42. Right lower lobe pulmonary nodules measure up to 7 mm. Mild linear right basilar consolidation. Small left pleural effusion. Nonspecific heterogeneity of the spleen, adrenal glands and pancreas appear unremarkable. Cholelithiasis without CT evidence of acute cholecystitis. Hepatic cysts measure up to 4.7 cm. Additional ill-defined hypodensities of the liver which are mostly subcentimeter tightly to small to characterize. There is no hydronephrosis. There is an acute infarct of the inferior pole left kidney measuring up to approximate 4.7 cm. Decompressed urinary bladder with Yun catheter in place. Layering hyperdense material noted within the urinary bladder lumen. Prostatomegaly. No lymphadenopathy identified. Distended fluid-filled stomach. Indeterminate hyperdense material noted within the rectal lumen. Air and fluid filled loops of large and small bowel. Large bowel is dilated measuring up to 8.4 cm. Small bowel loops measure up to approximately 3 cm. There is a small fat and fluid filled right inguinal hernia. There is a moderate-sized left inguinal hernia which contains trace fluid, mesenteric fat and descending colon. Large bowel distal to this is also mildly dilated. Colonic diverticulosis. Mild generalized body wall edema. No acute fracture identified. Chronic L5 pars defects with grade 1 anterolisthesis. IMPRESSION: 1. Motion degraded exam. 2. Patent aortobiiliac stent graft with patent grafts involving the celiac, superior mesenteric and renal arteries. 3. [place] abdominal aortic aneurysm measures up to 6.4 cm. Endoleaks are noted involving the graft as above , suboptimally evaluated secondary to artifact. 4. There is apparent occlusion involving a left inferior pole renal arterial branch with a moderate sized acute infarct of the inferior pole left kidney. 5. Distended air and fluid-filled loops of large and small bowel. There is a moderate sized left inguinal hernia containing mesenteric fat and the descending sigmoid junction with gaseous distention also seen distal to this. Findings likely represent an ileus, however close follow-up is needed in order to exclude a partial obstruction. 6. Cholelithiasis. 7. Pulmonary emphysema, bibasilar mucous plugging and right lower lobe pulmonary nodules with small left pleural effusion. Please refer to the chest CT of same day for additional findings. ACT 112: Negative or not required by law. The above report was generated using voice recognition software. It may contain grammatical, syntax or spelling errors. Electronically signed by: Melvin Gonzalez M.D. 07/25/2023 8:03 AM Chest CTA 07/25/23 06:34 CHEST CTA for AORTIC DISSECTION [address] DOSE: 3127.23 mGy.cm HISTORY: Shortness of breath. Tachycardia. PE / Dissection (recent AAA repair/CVA) TECHNIQUE: Multiaxial CT images of the chest were performed both before and after the intravenous administration of contrast to evaluate the aorta. 3D/MIP images were also obtained. Sagittal and coronal reformations were also reviewed. A dose lowering technique was utilized adhering to the principles of ALARA. COMPARISON STUDY: None. FINDINGS: Noncontrast imaging through the chest shows no evidence for an intramural hematoma within the thoracic aorta. Mild to moderate calcified plaque within the thoracic aorta. The thoracic aorta is normal in caliber with no evidence for a dissection. Please refer to the same day abdomen and pelvis CT for further evaluation of the stent graft repair of the aorta and proximal ab dominal vessels. There is a trace left pleural effusion. The heart is normal in size. Mild left ventricular hypertrophy is noted. Moderate coronary artery calcifications. The main pulmonary arteries are patent. The study was not performed as a dedicated PE study. Normal esophagus. No mediastinal or hilar lymphadenopathy. No mediastinal hematoma. Mild superior endplate compression fractures at T12 and L1 are age indeterminate but likely chronic. No pneumothorax. Advanced emphysema is noted. Partial mucoid opacification of the trachea and right lower lobe bronchi with a linear density at the base the right lower lobe. This may represent atelectasis or a pneumonitis secondary to aspiration. There are 2 nodules within the right lower lobe measuring 7 mm and 1.1 cm on images 198 and 214, respectively. A few additional nodular densities within the right lower lobe. A 4 mm nodule within the right upper lobe on image 127. No evidence for pulmonary edema. A 4 mm nodule within the left lower lobe on image 194. A 4 mm nodule within the left upper lobe on image 135. IMPRESSION: 1. No evidence for an aortic dissection. 2. Please refer to same day abdomen and pelvis CT for further evaluation of the abdominal structures. 3. No evidence for a central pulmonary embolus. 4. Mucoid material within the trachea and right lower lobe bronchi which could be due to prior aspiration. Linear density at the right lower lobe may represent subsegmental atelectasis or an aspiration pneumonitis. 5. Scattered indeterminate pulmonary nodules with the largest in the ascending right lower lobe measuring 11 mm. [address] follow-up recommended to ensure stability. 6. Advanced emphysema. 7. Trace left pleural effusion. ACT 112: Negative or not required by law. Electronically signed by: Wilver Roman M.D. 07/25/2023 8:28 AM Medications Administered Medication List Discontinued Medications Albuterol (Albut/Ipratrop 3mg/0.5mg Neb 3 Ml Vial) 3 ml NEB NOW STA; Protocol Stop: 07/25/23 05:46 Last Admin: 07/25/23 05:53 Dose: 3 ml Documented By: Ioversol (Optiray 320 125ml) 112 ml IV ONCE ONE Stop: 07/25/23 07:11 Last Admin: 07/25/23 07:10 Dose: 112 ml Documented By: DELORIS ECG Rate (beats per minute): 136 Additional Comments: I have independently reviewed and interpreted patient's admitting EKG which revealed: 136 ventricular beats per minute, sinus tachycardia with occasional PVC, QTc 436 MS, poor quality EKG with artifact, no significant ST or T wave change no COVID-19 Results Results COVID-19 Adm Lab Results: RBC 3.85 M/uL (4.70-6.10) L 07/25/23 WBC 14.53 K/ul (4.8-10.8) H 07/25/23 Hgb 11.5 g/dl (14.0-18.0) L 07/25/23 Hct 35.0 % (42.0-52.0) L 07/25/23 Plt Count 256 K/uL (130-400) 07/25/23 Neutrophils (%) (Auto) 91.2 % 07/25/23 Lymphocytes (%) (Auto) 1.7 % 07/25/23 Monocytes # (Auto) 0.92 K/uL (0.11-0.59) H 07/25/23 Eosinophils # (Auto) 0.04 K/uL (0.00-0.50) 07/25/23 Immature Granulocyte % (Auto) 0.2 % 07/25/23 Neutrophils # (Auto) 13.26 K/uL (1.40-6.50) H 07/25/23 Lymphocytes # (Auto) 0.24 K/uL (1.20-3.40) L 07/25/23 Monocytes # (Auto) 0.92 K/uL (0.11-0.59) H 07/25/23 Eosinophils # (Auto) 0.04 K/uL (0.00-0.50) 07/25/23 Basophils # (Auto) 0.04 K/uL (0.00-0.20) 07/25/23 Immature Granulocyte # (Auto) 0.03 K/uL (0.01-0.20) 4 Ovalocytes 1+ 07/25/23 Toxic Granulation 2+ 07/25/23 Na 138 mmol/L (136-145) 07/25/23 K 4.1 mmol/L (3.5-5.1) 07/25/23 Cl 96 mmol/L (98-107) L 07/25/23 CO2 30 mmol/L (21-32) 07/25/23 Anion Gap 12 (3-11) H 07/25/23 BUN 39 mg/dl (6-23) H 07/25/23 Creatinine 0.86 mg/dl (0.6-1.4) 07/25/23 BUN/Creatinine Ratio 45.3 (10-20) H 07/25/23 Glucose Level 128 mg/dl (70-99(Fasting)) H 07/25/23 Ca 9.5 mg/dl (8.6-10.3) 07/25/23 Total Bilirubin 1.0 mg/dl (0.2-1.0) 07/25/23 AST/SGOT 42 U/L (13-39) H 07/25/23 ALT/SGPT 54 U/L (7-52) H 07/25/23 Alkaline Phosphatase 150 U/L (34-104) H 07/25/23 Total Protein 6.9 gm/dl (6.0-8.3) 07/25/23 Albumin 3.6 gm/dl (3.4-5.0) 07/25/23 Globulin 3.3 gm/dl (2.5-4.0) 07/25/23 Albumin/Globulin Ratio 1.1 (0.9-2) 07/25/23 INR 5.6 (0.9-1.1) H* 07/25/23 Adenovirus (PCR) Not Detected (NotDetected) 07/25/23 B. parapertussis DNA (PCR) Not Detected (NotDetected) 07/04 05/28 B. pertussis DNA (PCR) Not Detected (NotDetected) 07/25/23 C. pneumoniae DNA (PCR) Not Detected (NotDetected) 4 Coronavirus Type OC43 (PCR) Not Detected (NotDetected) Coronavirus Type HKU1 (PCR) Not Detected (NotDetected) Coronavirus Type 229E (PCR) Not Detected (NotDetected) COVID-19 PCR Not Detected (NotDetected) 07/25/23 Coronavirus Type NL63 (PCR) Not Detected (NotDetected) Human Metapneumovirus (PCR) Not Detected (NotDetected) Influenza Virus Type A (PCR) Not Detected (NotDetected) Influenza Virus Type B (PCR) Not Detected (NotDetected) M. pneumoniae (PCR) Not Detected (NotDetected) 07/25/23 Parainfluenza Type 1 (PCR) Not Detected (NotDetected) 07/04 05/28 Parainfluenza Type 2 (PCR) Not Detected (NotDetected) 07/04 05/28 Parainfluenza Type 3 (PCR) Not Detected (NotDetected) 07/04 05/28 Parainfluenza Type 4 (PCR) Not Detected (NotDetected) 07/04 05/28 RSV (PCR) Not Detected (NotDetected) 07/25/23 Enterovirus/Rhinovirus (PCR) Not Detected (NotDetected) Chest X-Ray 07/25/23 Code Status & VTE Plan Code Status FULL CODE Supervising Physician Co-Signing Physician Notes Patient is a 73-year-old male who had recently undergone endovascular repair of visceral aorta and infrarenal abdominal aorta with a Solsberry Excluder fenestrated aortic endograft including 2 visceral artery fenestrations (celiac artery, superior mesenteric artery) and 2 directional portals (bilateral renal arteries) on July 14, 2023 in [facility]. He was admitted from July 13 to July 22, 2023. Postoperative periodwas complicated with acute infarct in the posterior circulation (resulting in right-sided weakness) He also had postoperative ileus for which she was placed on pPN for short interval; was switched over to diet at discharge Also had urinary retention for which Yun catheter was placed; trial of void was unsuccessful after 1 week of trial. He was placed on Coumadin for the embolic stroke; was thought to be in increased risks of cardioembolic stroke as anticoagulation was held for the procedure he was placed on Lovenox/Coumadin and Plavix. At the time of the discharge, he had persistent endoleak, renal infarct in inferior pole of left kidney which is also evident on his CT abdomen which was done here. The findings were discussed with vascular surgery on consult at [facility]. Other medical history include type 2 diabetes mellitus, COPD on 3 L of oxygen, hyperlipidemia, SIADH, bronchiectasis, hypertension, mood disorder, history of strokes. Patient reports that he started to have shortness of breath since last night. He reports not having bowel movements since coming to the rehab; not passing gas. He had a large bowel movement after arrival to the ED. He reports that it has helped his shortness of breath and abdominal discomfort. On physical examination; Constitutional: Awake, alert oriented x 3; not in distress. Respiratory: Bilateral vesicular breath sounds; no wheezes. Cardiovascular: Tachycardic RRR, no murmur, no edema Vessels: no JVD or carotid bruit Chest: normal inspection of chest Abdomen: Distended, nontender. Bowel sounds hypoactive Musculoskeletal: no cyanosis or clubbing, extremities motor strength 5/5 Skin: no rashes, warm and dry normal turgor Neurologic: PERRL, EOMI, accommodation nl, no face palsy, no dysarthria CN's II- XI intact bilaterally. Weakness on right upper and lower extremity; able to lift arm and leg against gravity. No weakness appreciated on left lower extremity Psychiatric: A+Ox3, euthymic affect Assessment/plan Acute on chronic hypoxic respiratory failure Possible aspiration pneumonia History of COPD on 3 L of oxygen, bronchiectasis CTA chest shows mucoid material within the trachea and right lower lobe bronchus. Pulmonary will present on right lower extremity. Advanced emphysema Will start Zosyn for possible hospital-acquired pneumonia/aspiration pneumonia DuoNebs [id number], airway clearance therapy with hypertonic saline, a flutter and incentive inspirometry No indication for steroids at the time being; no wheezes appreciated on examination. Wean oxygen as tolerated [employer] CONSULTANT eval Postoperative ileus History of vascular surgery on July 14, 2023 Patient had undergone vascular surgery as mentioned above. Postoperative Period Was complicated with ileus requiring peripheral parenteral nutrition. CT abdomen/pelvis shows distention of year and fluid level of large and small bowel, moderate size inguinal hernia. Finding likely ileus; however close follow-up needed to exclude partial obstruction Bowel rest; n.p.o. with sips with meds/ice IV fluids Will stop any opioids; IV Tylenol as needed for pain control Appreciate surgery's input KUB tomorrow a.m. Recent vascular surgery on July 14, 2023 Endoleak noted in CTA abdomen/pelvis Acute infarct of inferior pole of left kidney CTA abdomen pelvis shows endoleak involving the graft, moderate-sized acute infarct of inferior pole of left kidney ED physician discussed with vascular surgery on[place]call [place] [facility] [place]; as per the vascular surgeonthis findings were present; no interventions needs to be done Continue to monitor. Urinary retention with Yun in place Yun catheter was placed after urinary retention in post-op period Maintain Yun for the time being Trial of void after resolution of ileus. History of cardioembolic stroke Supratherapeutic INR Patient developed right-sided weakness after the surgery. MRI showed cardioembolic stroke on posterior circulation Patient was placed on Coumadin/Lovenox and Plavix INR supratherapeutic Hold Coumadin for the time being Continue PT OT evaluation Continue on Plavix, statin. LFTs mildly elevated; will continue statin for the time being Chronic conditions; Paroxysmal atrial fibrillationEKG on admission personally reviewed; sinus tachycardia with PVCs; Nonspecific ST and T wave changes. INR supratherapeutic. Continue to monitor on telemetry. Hypertensioncontinue on home meds Type 2 diabetes mellituscontinue on sliding scale, last a1c 5.1 on 07/18/23 Discussed with patient's granddaughter at bedside; answer questions/queries. DVT prophylaxissupratherapeutic INR; Coumadin on hold. Full code I have reviewed the advanced practitioner's documentation, and I agree with, and take responsibility for the plan of care I spent a total of 60 minutes coordinating, documenting, and providing care for this patient excluding time spent in the performance of separately billed services. All of the aforementioned completed while collaborating with the assigned advanced practitioner for a full treatment plan
[2023-07-25] MEDS: methylPREDNISolone 125 MG/2 ML VIAL IV STA (10:55)
[2023-07-25] MEDS: PIPERACILLIN/TAZOBACTAM 4.5 GM/100 ML BAG IV ONE (10:55)
--- NOTE | 2023-07-25 10:56 | Electrocardiogram Report ---
Test Reason : Blood Pressure : / mmHG Vent. Rate : 136 BPM Atrial Rate : 136 BPM P-R Int : 142 ms QRS Dur : 082 ms QT Int : 290 ms P-R-T Axes : 076 043 058 degrees QTc Int : 436 ms Sinus tachycardia with occasional Premature ventricular complexes Nonspecific ST and T wave abnormality Abnormal ECG No previous ECGs available Confirmed by Octavio Monique ([id number]) on 07/25/2023 10:56:07 AM Referred By: Confirmed By:Octavio Monique
[2023-07-25] MEDS ORDERED: ACETAMINOPHEN 1,000 MG/100 ML VIAL IV PRN (12:33)
[2023-07-25] MEDS ORDERED: ONDANSETRON INJ 2 MG/ML 2 ML VIAL IV PRN (12:33)
[2023-07-25] MEDS: BUDESONIDE 0.5 MG/2 ML VIAL (PULMICORT) NEB SCH (12:52)
[2023-07-25] MEDS: FORMOTEROL 20 MCG/2 ML VIAL NEB SCH (12:52)
[2023-07-25] MEDS: ALBUT/IPRATROP 3MG/0.5MG NEB 3 ML VIAL NEB SCH (12:53)
[2023-07-25] MEDS ORDERED: BACLOFEN 10 MG TAB PO SCH (13:00)
[2023-07-25] MEDS: SODIUM CHLORIDE 0.9% 1,000 ML IV SCH (13:34)
[2023-07-25] MEDS: GABAPENTIN 300 MG CAP PO SCH (13:34)
--- NOTE | 2023-07-25 13:44 | Surgery Consultation ---
<Statement entered by Elizabeth Evans DO - 07/26/23 08:16> I have seen and examined this patient and I agree with the plan Date of Consultation July 25, 2023 Assessment & Plan (1) Ileus: This is a 73yM with a PMH of CAD, DM2, s/p AAA repair in ' complicated by endoleak s/p recent endovascular intervention multiple times, HLD, HTN, COPD on 3L O2 at baseline, afib on coumadin with h/o CVA who presents to the [facility] ED from [facility] on 07/25/23 with complaints of shortness of breath and worsening vital signs. Of note the patient recently underwent endovascular repair of his endoleak at [facility] earlier this month. Post op course complicated by CVA and ileus. He was on PPN temporarily and then transitioned to an oral diet prior to discharge to [facility]. Per family and patient he has been dealing with abdominal bloating, on and off, since his surgery ~1.5wks ago. He has been eating, but not tolerating much they believe secondary to his bloating. We have been consulted as patient underwent a CTA chest/abd/pelvis that revealed findings concerning for ileus vs. partial sbo as it showed small and large bowel distention. There is also evidence of a left inguinal hernia containing some sigmoid colon, but not necessarily believed to be a point of obstruction. + endoleak remains present. WBC 14, Hbg 11.5, Cr 0.8, INR elevated at 5.6. Vitals show patient is tachycardic to the 120's with stable BPs, and requiring supplemental O2. On examination patient's abdomen is soft and non tender, but moderately distended. He has a palpable left inguinal hernia that is non- reducible, no overlying skin changes or no significant discomfort to palpation noted. The patient denies any abdominal pain, nausea/vomiting currently. He reports passing flatus and BMs. At this time recommend patient have an NGT placed to see if this will help resolve some of the patient's distention. Would keep NPO with IVF for bowel rest. Will continue to monitor abdomen as well as bowel function. Some of his distention may be causing his respiratory issues. Will need encouraged to be mobile as able and would limit narcotics. No plans for surgical intervention. We will follow. Hold coumadin as supratherapeutic INR. History of Present Illness Attending Physician: Ayaz Bassett MD History of Present Illness This is a 73yM with a PMH of CAD, DM2, s/p AAA repair in complicated by endoleak s/p recent endovascular intervention, HLD, HTN, COPD on 3L O2 at baseline, afib on coumadin with h/o CVA who presents to the [facility] ED from [facility] on 07/25/23 with complaints of shortness of breath and worsening vital signs. Of note the patient recently underwent endovascular repair of his endoleak at [facility] earlier this month. Post op course complicated by CVA and ileus. He was on PPN temporarily and then transitioned to an oral diet prior to discharge to [facility]. Per family and patient he has been dealing with abdominal bloating, on and off, since his surgery earlier this month. He has been eating, but not tolerating much they believe secondary to his bloating. We have been consulted as patient underwent a CTA chest/abd/pelvis that revealed findings concerning for ileus vs. partial sbo as it showed small and large bowel distention. There is also evidence of a left inguinal hernia containing some sigmoid colon, but not necessarily believed to be a point of obstruction. The patient denies any abdominal pain, nausea/vomiting currently. He states that he is passing gas and had a BM today. There is a report of appendectomy in his chart. Otherwise his vascular procedures were done in the groin or axilla. Never had a colonoscopy. He is aware of his left inguinal hernia and states it has been present for "years" and does not report any pain. Says the bulge of the hernia is consistent with what it has been previously. He is on plavix and Coumadin. Allergies Allergy/AdvReac Type Severity Reaction Status Date / Time diltiazem Allergy Severe throat Verified 07/25/23 10:55 tightness doxycycline Allergy Severe SOB Verified 07/25/23 10:55 mometasone furoate AdvReac Mild nausea and Verified 07/25/23 10:55 [From Alondra Martinez] vomiting Home Medications Medication Instructions Recorded Confirmed Type atorvastatin 40 mg tablet 80 mg PO DAILY 07/25/23 07/25/23 History baclofen 10 mg tablet 10 mg PO Q8H 07/25/23 07/25/23 History clopidogrel 75 mg tablet 75 mg PO DAILY 07/25/23 07/25/23 History cyproheptadine 4 mg tablet 4 mg PO HS 07/25/23 07/25/23 History docusate sodium 100 mg tablet 100 mg PO BID 07/25/23 07/25/23 History fluticasone furoate 100 1 inh inhalation DAILY 07/25/23 07/25/23 History mcg-vilanterol 25 mcg/dose inhalation powder gabapentin 300 mg capsule 300 mg PO TID 07/25/23 07/25/23 History pantoprazole 40 mg tablet,delayed 40 mg PO DAILY 07/25/23 07/25/23 History release therapeutic multivitamin 1 tab PO DAILY 07/25/23 07/25/23 History umeclidinium 62.5 mcg/actuation 1 inh inhalation DAILY 07/25/23 07/25/23 History blister powder for inhalation ursodiol 250 mg tablet 125 mg PO BID 07/25/23 07/25/23 History warfarin 5 mg tablet 10 mg PO DAILY 07/25/23 07/25/23 History Patient History Medical History AAA (abdominal aortic aneurysm) CAD (coronary artery disease) hx of mI in 1992 HLD (hyperlipidemia) HTN (hypertension) COPD (chronic obstructive pulmonary disease) History of CVA (cerebrovascular accident) PAF (paroxysmal atrial fibrillation) Chronic hypoxic respiratory failure T2DM (type 2 diabetes mellitus) Surgical History H/O thoracic aortic aneurysm repair 2021 Hx of cataract surgery History of tonsillectomy and adenoidectomy Hx of appendectomy S/P AAA repair 07/14/23 endovascular repair of endoleak S/P EVAR 02/20/2021 with [place] Stent graft performed at [facility] in [place]. He presented to [facility] 04/21/2021 with acute, severe epigastric pain, nausea, and vomiting. Work-up included CT abdomen/pelvis revealing s/p EVAR with possible type 1 vs type 3 endoleak. S/P coil embolization of aneurysmal sac and coil embolization of feeding lumbar arteries by Dr. Carrillo on 07/10/2021 Post operative imaging demonstrated persistent endoleak, with some concern regarding a Type 1a endoleak. S/P physician modified endograft on 07/14/2023 Family History Other Diabetes Social History Smoking Status: Former smoker Tobacco Type: Cigarettes Preferred Language: Sinhala Feels Safe at Home: Yes Review of Systems Constitutional: no fever and no chills Respiratory: + dyspnea conversational dyspnea Gastrointestinal: + bloating; no abdominal pain, no nausea , no vomiting and no change in bowel habits Physical Exam Physical Exam: awake. alert. no distress Respiratory: on nasal cannula. wet breath sounds Gastrointestinal (Abdomen): Inspection/Auscultation: + abdomen distended Percussion/Palpation: abdomen soft; abdomen nontender Rectal Exam: no rectal mass and no rectal tenderness + left inguinal hernia, no overlying ski n changes, non reducible on exam. not overly tender Results & Data Vital Signs (Past 12 Hours) Vital Signs Temp Pulse Pulse Resp BP BP Pulse Ox 07/25/23 13:22 07/25/23 13:22 120 H 30 H 137/74 95 07/25/23 12:55 107 H 30 H 98 07/25/23 12:00 108 H 28 H 112/63 97 07/25/23 10:13 120 H 30 H 140/79 98 07/25/23 09:45 116 H 07/25/23 08:00 121 H 28 H 105/72 99 07/25/23 06:00 98.2 F 132 H 34 H 148/94 H 96 07/25/23 05:47 95 07/25/23 05:47 98.3 F 134 H 27 H 172/109 H 95 07/25/23 05:47 07/25/23 05:42 134 H Pulse Ox O2 Del Method O2 Del Method O2 Flow Rate O2 Flow Rate 07/25/23 13:22 96 Nasal Cannula 4 07/25/23 13:22 Nasal Cannula 4 07/25/23 12:55 Nasal Cannula 3 07/25/23 12:00 Nasal Cannula 4 07/25/23 10:13 Nasal Cannula 4 07/25/23 09:45 07/25/23 08:00 Nasal Cannula 4 07/25/23 06:00 Nasal Cannula 4 07/25/23 05:47 Nasal Cannula 3 07/25/23 05:47 Nasal Cannula 3 07/25/23 05:47 Nasal Cannula 4 07/25/23 05:[address] angio abd pelvis wo/w con HISTORY: 73 years-old Male dissection/AAA rupture (recent repair, CVA, ileus) acute generalized abdominal pain with tachycardia. Abdominal aortic aneurysm repair 1 week earlier. COMPARISON: None TECHNIQUE: CTA abdomen and pelvis was obtained with and without IV contrast. Additional 3-D rendered images were generated from a separate workstation and submitted for review. A dose lowering technique was used consistent with the principals of MAYELIN. FINDINGS: Motion degraded exam. CTA: The heart is normal in size. Partially imaged coronary arterial calcifications. Aortobiiliac stent graft is patent and traverses a upper [place] infrarenal abdominal aortic aneurysm measuring approximately 6.4 x 6.3 cm. Within the lumen of the infrarenal abdominal aorta there is a 3.7 cm hyperdense focus on image 169 series 13 suggestive of an endoleak. There are additional endoleaks noted along the proximal aspect of the graft on image 124 series 13. Evaluation is limited secondary to surrounding streak artifact with embolization coils. The imaged femoral arteries are patent. Patent celiac, superior mesenteric and renal arterial grafts. There is apparent occlusion involving a left inferior pole renal arterial branch, suboptimally visualized secondary to the motion artifact. CT ABDOMEN/PELVIS: Pulmonary emphysema with right lower lobe mucus plugging and mild right lower lobe tree-in-bud nodules. 1.2 cm solid nodule noted within the right lower lobe on image 42. Right lower lobe pulmonary nodules measure up to 7 mm. Mild linear right basilar consolidation. Small left pleural effusion. Nonspecific heterogeneity of the spleen, adrenal glands and pancreas appear unremarkable. Cholelithiasis without CT evidence of acute cholecystitis. Hepatic cysts measure up to 4.7 cm. Additional ill-defined hypodensities of the liver which are mostly subcentimeter tightly to small to characterize. There is no hydronephrosis. There is an acute infarct of the inferior pole left kidney measuring up to approximate 4.7 cm. Decompressed urinary bladder with Yun catheter in place. Layering hyperdense material noted within the urinary bladder lumen. Prostatomegaly. No lymphadenopathy identified. Distended fluid-filled stomach. Indeterminate hyperdense material noted within the rectal lumen. Air and fluid filled loops of large and small bowel. Large bowel is dilated measuring up to 8.4 cm. Small bowel loops measure up to approximately 3 cm. There is a small fat and fluid filled right inguinal hernia. There is a moderate-sized left inguinal hernia which contains trace fluid, mesenteric fat and descending colon. Large bowel distal to this is also mildly dilated. Colonic diverticulosis. Mild generalized body wall edema. No acute fracture identified. Chronic L5 pars defects with grade 1 anterolisthesis. IMPRESSION: 1. Motion degraded exam. 2. Patent aortobiiliac stent graft with patent grafts involving the celiac, superior mesenteric and renal arteries. 3. [place] abdominal aortic aneurysm measures up to 6.4 cm. Endoleaks are noted involving the graft as above , suboptimally evaluated secondary to artifact. 4. There is apparent occlusion involving a left inferior pole renal arterial branch with a moderate sized acute infarct of the inferior pole left kidney. 5. Distended air and fluid-filled loops of large and small bowel. There is a moderate sized left inguinal hernia containing mesenteric fat and the descending sigmoid junction with gaseous distention also seen distal to this. Findings likely represent an ileus, however close follow-up is needed in order to exclude a partial obstruction. 6. Cholelithiasis. 7. Pulmonary emphysema, bibasilar mucous plugging and right lower lobe pulmonary nodules with small left pleural effusion. Please refer to the chest CT of same day for additional findings. ACT 112: Negative or not required by law. The above report was generated using voice recognition software. It may contain grammatical, syntax or spelling errors. Electronically signed by: Melvin Gonzalez M.D. 07/25/2023 8:03 AM CHEST CTA for AORTIC DISSECTION CT DOSE: 3127.23 mGy.cm HISTORY: Shortness of breath. Tachycardia. PE / Dissection (recent AAA repair/CVA) TECHNIQUE: Multiaxial CT images of the chest were performed both before and after the intravenous administration of contrast to evaluate the aorta. 3D/MIP images were also obtained. Sagittal and coronal reformations were also reviewed. A dose lowering technique was utilized adhering to the principles of ALARA. COMPARISON STUDY: None. FINDINGS: Noncontrast imaging through the chest shows no evidence for an intramural hematoma within the thoracic aorta. Mild to moderate calcified plaque within the thoracic aorta. The thoracic aorta is normal in caliber with no evidence for a dissection. Please refer to the same day abdomen and pelvis CT for further evaluation of the stent graft repair of the aorta and proximal abdominal vessels. There is a trace left pleural effusion. The heart is normal in size. Mild left ventricular hypertrophy is noted. Moderate coronary artery calcifications. The main pulmonary arteries are patent. The study was not performed as a dedicated PE study. Normal esophagus. No mediastinal or hilar lymphadenopathy. No mediastinal hematoma. Mild superior endplate compression fractures at T12 and L1 are age indeterminate but likely chronic. No pneumothorax. Advanced emphysema is noted. Partial mucoid opacification of the trachea and right lower lobe bronchi with a linear density at the base the right lower lobe. This may represent atelectasis or a pneumonitis secondary to aspiration. There are 2 nodules within the right lower lobe measuring 7 mm and 1.1 cm on images 198 and 214, respectively. A few additional nodular densities within the right lower lobe. A 4 mm nodule within the right upper lobe on image 127. No evidence for pulmonary edema. A 4 mm nodule within the left lower lobe on image 194. A 4 mm nodule within the left upper lobe on image 135. IMPRESSION: 1. No evidence for an aortic dissection. 2. Please refer to same day abdomen and pelvis CT for further evaluation of the abdominal structures. 3. No evidence for a central pulmonary embolus. 4. Mucoid material within the trachea and right lower lobe bronchi which could be due to prior aspiration. Linear density at the right lower lobe may represent subsegmental atelectasis or an aspiration pneumonitis. 5. Scattered indeterminate pulmonary nodules with the largest in the ascending right lower lobe measuring 11 mm. [address] follow-up recommended to ensure stability. 6. Advanced emphysema. 7. Trace left pleural effusion. ACT 112: Negative or not required by law. Electronically signed by: Wilver Roman M.D. 07/25/2023 8:28 AM PG Care Time/CCT Total # of Minutes Spent Total Time Spent with Patient: Total time spent is greater than 50% in coordination of care (as documented) at patient's floor/unit and/or counseling patient: Coding Level of Care Code 57955 IN/OBS CONSULT LVL 3,45M Diagnoses Ileus K56.7
[2023-07-25] MEDS: ALBUT/IPRATROP 3MG/0.5MG NEB 3 ML VIAL ONE (15:01)
[2023-07-25 15:40] LABS: iSTAT Hemoglobin 10.9 g/dl (14.0-18.0); iSTAT Ionized Calcium 1.17 mmol/l (1.12-1.32)
[2023-07-25] MEDS: PIPERACILLIN/TAZOBACTAM 4.5 GM in DEXTROSE 5% MINI-B 100 ML IV SCH (18:18)
[2023-07-25] MEDS: SODIUM CHLOR 7% 4 ML NEB NEB SCH (19:27)
[2023-07-25] MEDS: guaiFENesin 600 MG TABCR PO SCH (21:06)
[2023-07-25] MEDS: DOCUSATE SODIUM 100 MG CAP PO SCH (21:07)
[2023-07-26 05:19] LABS: Prothrombin Time 80.5 Seconds (9.0-12.0)
[2023-07-26 05:22] LABS: Albumin Globulin Ratio 1.1 (0.9-2); Albumin Level 3.1 gm/dl (3.4-5.0); BUN Creatinine Ratio 53.5 (10-20); Bilirubin,Total 0.5 mg/dl (0.2-1.0); Calcium 8.8 mg/dl (8.6-10.3); Creatinine Clr Calc Pharmacy 57.1 ml/min; Est GFR (African American) 83.9 ml/min; Est GFR (Non-African American) 72.4 ml/min; Globulin 2.9 gm/dl (2.5-4.0); Potassium 3.7 mmol/L (3.5-5.1)
[2023-07-26 05:43] LABS: Basophils # (auto) 0.08 K/uL (0.00-0.20); Basophils % (auto) 1.7 %; Hematocrit (blood only) 29.3 % (42.0-52.0); Hemoglobin 9.4 g/dl (14.0-18.0); Immature Granulocytes # (auto) 0.04 K/uL (0.01-0.20); Immature Granulocytes % (auto) 0.8 %; Lymphocytes # (auto) 0.36 K/uL (1.20-3.40); Lymphocytes % (auto) 7.6 %; Mean Corpuscular Hemoglobin 29.8 pg (25.0-34.0); Mean Corpuscular Hgb Conc 32.1 g/dL (32.0-36.0); Mean Platelet Volume 9.2 fL (9.4-12.4); Monocytes % (auto) 12.6 %; Neutrophils # (auto) 3.67 K/uL (1.40-6.50); Neutrophils % (auto) 77.3 %; Platelet Count 232 K/uL (130-400); RDW Coefficient of Variation 13.8 % (11.5-14.5); RDW Standard Deviation 46.8 fL (36.4-46.3); Red Blood Count 3.15 M/uL (4.70-6.10); Toxic Granulation 1+; Toxic Vacuolation 1+; White Blood Count 4.75 K/ul (4.8-10.8)
[2023-07-26 06:23] LABS: INR 8.4 (0.9-1.1)
--- NOTE | 2023-07-26 07:06 | XRay Report ---
XR chest 1V portable CLINICAL HISTORY: Nasogastric tube placement. COMPARISON STUDY: CTA of the abdomen and pelvis July 25, 2023. FINDINGS: Tip of nasogastric tube projects over the gastric cardia. The tube could be advanced an add itional 4 cm. Multiple dilated loops of small and large bowel are partially imaged on this exam. Ther e is emphysema. There is no evidence for free air. Endovascular stent graft and embolization coils ar e incidentally noted. IMPRESSION: 1. Tip of nasogastric tube projects at the gastric cardia. The tube could be advanced an additional 4 cm. 2. Partially visualized dilated large and small bowel, as shown on CTA of July 25, 2023. ACT 112: Negative or not required by law. Electronically signed by: Edouard Edgar M.D. 07/26/2023 7:04 AM
--- NOTE | 2023-07-26 07:19 | Communication Note ---
Date of Service: July 26, 2023 Made aware by RN of INR of 8.4 from 5.6 yesterday. Hemoglobin down to 9 from 11 yesterday. Patient denies abdominal pain. No overt bleeding as per RN. Brown NGT aspirate Melanotic stool heme positive on rectal exam done at bedside. AP UGIB Coumadin coagulopathy/concomitant Plavix Rx Maintain n.p.o. status IV PPI Vitamin K to reverse coagulopathy Hold Plavix GI consult re: UGIB Patient and granddaughter agreeable to plan of care.
[2023-07-26 08:14] LABS: Hematocrit (blood only) 31.8 % (42.0-52.0); Hemoglobin 10.1 g/dl (14.0-18.0)
[2023-07-26] MEDS: PANTOprazole 80 MG in DEXTROSE 5% 100 ML IV STA (08:40)
[2023-07-26] MEDS: PHYTONADIONE 10 MG in DEXTROSE 5% 50 ML IV ONE (08:41)
[2023-07-26] MEDS: PHYTONADIONE 1 MG in DEXTROSE 5% 50 ML IV ONE (08:46)
[2023-07-26] MEDS ORDERED: PANTOprazole 40 MG TAB PO SCH (09:00)
[2023-07-26] MEDS ORDERED: CLOPIDOGREL BISULFATE 75 MG TAB PO SCH (09:00)
[2023-07-26] MEDS: METOPROLOL TARTRATE 1 MG/ML VIAL IV STA (09:15)
[2023-07-26] MEDS: POTASSIUM CHLORIDE / WTR 10 MEQ/100 ML PLCT IV SCH (09:20)
--- NOTE | 2023-07-26 09:21 | Surgery Progress Note ---
<Statement entered by Elizabeth Evans, DO - 07/26/23 10:35> I have seen and examined this patient with the surgical [employer]CH[employer]IC and I agree with this plan Date of Service July 26, 2023 Assessment & Plan (1) Ileus: Plan: Pt denies abd pain having BMs and passing flatus abd still appears distended, mildly firm NG tube with greenish color o/p 100ml /24h CXR from 0100 reports NG tube could be advanced 4cm , nurses documented insert ion depth was 62. Advance NG tube to 66cm, Continue NG tube for decompression GI consulted for occult + stool No acute surgical intervention Pt seen with Dr. Evans Admission and Anticipated Discharge Date Admission Date: July 25, 2023 Subjective pt reports feeling ok Denies abd pain Pass flatus, has been having BMs Reports less SOB than yesterday Review of Systems Constitutional: no fever and no chills Respiratory: + cough, + chest congestion and + dyspne a Gastrointestinal: + bloating; no abdominal pain, no nausea and no vomiting Physical Exam Constitutional: + ill appearing and comfortable; no acut e distress Respiratory: + cough and able to speak in complete se ntences; no respiratory distress Cardiovascular: Rate/Rhythm: + tachycardic Gastrointestinal (Abdomen): Inspection/Auscultation: + abdomen distended Percussion/Palpation: abdomen not rigid Results & Data Vital Signs (Past 12 Hours) Vital Signs Temp Pulse Pulse Resp BP Pulse Ox O2 Del Method 07/26/23 08:59 153 H 21 89/55 L 94 Nasal Cannula 07/26/23 07:37 108 H 17 97 Nasal Cannula 07/26/23 07:08 97.7 F 104 H 17 148/80 H 98 Nasal Cannula 07/26/23 02:51 97.7 F 90 20 132/77 98 Nasal Cannula 07/25/23 23:47 Nasal Cannula 07/25/23 23:45 99 H 07/25/23 23:09 97.7 F 86 22 111/67 100 Nasal Cannula O2 Flow Rate 07/26/23 08:59 2 07/26/23 07:37 4 07/26/23 07:08 4 07/26/23 02:51 4 07/25/23 23:47 3 07/25/23 23:45 07/25/23 23:09 6 Results Complete Blood Count Results: RBC 3.15 M/uL (4.70-6.10) L 07/26/23 WBC 4.75 K/ul (4.8-10.8) L 07/26/23 Hgb 10.1 g/dl (14.0-18.0) L 07/26/23 Hct 31.8 % (42.0-52.0) L 07/26/23 Plt Count 232 K/uL (130-400) 07/26/23 PG Care Time/CCT Total # of Minutes Spent Total Time Spent with Patient: Total time spent is greater than 50% in coordination of care (as documented) at patient's floor/unit and/or counseling patient: Coding Level of Care Code 54313 SUB INP/OBS CARE 04/28MIN Diagnoses Ileus K56.7
[2023-07-26] MEDS: PANTOprazole 40 MG in DEXTROSE 5% MINI-B 100 ML IV SCH (09:24)
--- NOTE | 2023-07-26 09:25 | Hospitalist Progress Note ---
Date of Service July 26, 2023 Assessment & Plan (1) Shortness of breath: (2) Aspiration pneumonia: (3) Ileus: (4) Supratherapeutic INR: (5) S/P endovascular aneurysm repair: (6) Chronic hypoxic respiratory failure: (7) History of CVA (cerebrovascular accident): (8) COPD (chronic obstructive pulmonary disease): Plan This is a 73-year-old male who has significant past medical history of COPD with chronic hypoxic respiratory failure on 3 L of O2 via NC, PAF, CAD, HTN, HLD, prior right thalamic CVA, T2DM, endovascular repair of AAA in February 2021 who presents to ED secondary to shortness of breath. Acute on chronic hypoxic respiratory failure Possible aspiration pneumonia H/O COPD on 3 L of oxygen, bronchiectasis --CTA chest shows mucoid material within the trachea and right lower lobe bronchus. Pulmonary will present on right lower extremity. Advanced emphysema Continue Zosyn, home inhalers Supplemental oxygen to keep saturation 88 to 92% Aspiration precautions Speech eval as able Postoperative ileus H/O vascular surgery on July 14, 2023 Postoperative Period was complicated with ileus requiring peripheral parenteral nutrition. --CT abdomen/pelvis shows distention of year and fluid level of large and small bowel, moderate size inguinal hernia. Finding likely ileus; however close follow-up needed to exclude partial obstruction Continue bowel rest, IV fluids Avoid opioids as able Surgery consulted Continue NG tube Patient had bowel movement overnight Appreciate surgery input Currently no indication for surgery A-fib RVR H/O paroxysmal A-fib Presented with supratherapeutic INR INR was reversed with vitamin K due to concern for GI bleed Check TSH Monitor and replete electrolytes as needed Received digoxin IV Lopressor as needed Cardiology on board Monitor and replete electrolytes as needed Concern for GI bleed ? Endovascular leak In setting of supratherapeutic INR Coumadin, Plavix held Started on Protonix drip Monitor H&H and transfuse as needed GI consulted Recent vascular surgery on July 14, 2023 Endoleak noted in CTA abdomen/pelvis Acute infarct of inferior pole of left kidney --CTA abdomen pelvis shows endoleak involving the graft, moderate-sized acute infarct of inferior pole of left kidney --ED physician discussed with vascular surgery on-call at [facility] on admission; as per the vascular surgeonthis findings were present; no interventions needs to be done Continue to monitor. Urinary retention with Yun in place Yun catheter was placed after urinary retention in post-op period Maintain Yun Trial of void after resolution of ileus. History of cardioembolic stroke Supratherapeutic INR Monitor INR Resume Plavix as able Continue statin CVA Patient developed right-sided weakness after the surgery. MRI showed cardioembolic stroke on posterior circulation Patient was placed on Coumadin and Plavix INR supratherapeutic on presentation Resume Coumadin, plavix as able PT OT evaluation Continue statin LFTs mildly elevated--consider to hold statin if LFTs worsen Chronic conditions: Hypertension Type 2 diabetes mellituscontinue on sliding scale, last a1c 5.1 on 07/18/23 Continue home medications as able DVT Px: Coumadin held--concern for GI bleed SCDs for now CODE STATUS Full code Admission and Anticipated Discharge Date Admission Date: July 25, 2023 Subjective Patient is seen and examined at bedside Patient went into A-fib RVR this morning but remains asymptomatic Abdominal distention much improved after NG tube placement Patient had melanotic stool overnight and so INR was reversed per record No bleeding issues this morning Denies any chest pain, dyspnea, nausea, vomiting, abdominal pain Family at bedside Review of Systems Review of Systems: All systems reviewed & are unremarkable except as noted in Subjective Physical Exam Physical Exam: Physical Exam: Vitals signs as noted above General Appearance: Thin, frail, chronically ill appearing, no apparent distress Head: normocephalic, Atraumatic, +NG tube Eyes: normal inspection, EOMI Neck: supple, Trachea midline Respiratory/Chest: Decreased breath sounds, CTA, No accessory muscle use Cardiovascular: Irregularly irregular, tachycardia, No murmur Abdomen/GI:Soft, Non tender, mildly distended, Bowel sounds present Extremities/Musculoskeletal:normal inspection, no edema Neurologic/Psych:AAOX3, grossly no focal neurological deficits Skin: normal color, warm Results & Data Results & Data Vital Signs (Past 12 Hours) Vital Signs Temp Pulse Pulse Resp BP Pulse Ox O2 Del Method 07/26/23 08:59 153 H 21 89/55 L 94 Nasal Cannula 07/26/23 07:37 108 H 17 97 Nasal Cannula 07/26/23 07:08 36.5 C 104 H 17 148/80 H 98 Nasal Cannula 07/26/23 02:51 36.5 C 90 20 132/77 98 Nasal Cannula 07/25/23 23:47 Nasal Cannula 07/25/23 23:45 99 H 07/25/23 23:09 36.5 C 86 22 111/67 100 Nasal Cannula O2 Flow Rate 07/26/23 08:59 2 07/26/23 07:37 4 07/26/23 07:08 4 07/26/23 02:51 4 07/25/23 23:47 3 07/25/23 23:45 07/25/23 23:09 6 Laboratory Results Short CBC 07/26/23 07/26/23 Range/Units 04:28 07:55 WBC 4.75 L D (4.8-10.8) K/ul Hgb 9.4 L 10.1 L (14.0-18.0) g/dl Hct 29.3 L 31.8 L (42.0-52.0) % Plt Count 232 (130-400) K/uL BMP 07/26/23 04:28 Sodium 138 Potassium 3.7 Chloride 101 Carbon Dioxide 30 BUN 54 H Creatinine 1.01 Glucose 153 H Calcium 8.8 Liver Function 07/26/23 Range/Units 04:28 Total Bilirubin 0.5 D (0.2-1.0) mg/dl AST 27 (13-39) U/L ALT 38 (7-52) U/L Alkaline Phosphatase 113 H (34-104) U/L Albumin 3.1 L (3.4-5.0) gm/dl
--- NOTE | 2023-07-26 09:45 | Gastrointestinal Consultation ---
Date of Consultation July 26, 2023 Assessment & Plan (1) Anemia: Patient is a 73 yo male with a persistent endovascular leak after recent endovascular repair at [facility]. He is on Coumadin & Plavix with an INR of 8.4. H/H 10.1/31.8. No overt GI bleeding; Patient continues on Protonix drip. In addition to the ongoing endovascular leak, he also has a post-operative ileus for which surgery is following. He suffered a post-op CVA at [facility] affecting many areas of the brain and kidney as well.No plans for endoscopic evaluation at present as patient has significant active medical comorbidities that require optimization. The minimal benefits of endoscopic evaluation do not outweigh the significant risks given his current clinical picture, particularly in the absence of overt GI bleeding and the supratherapeutic INR. If patient's anemia worsens or his clinical condition worsens, he should be transferred back to [facility]. Supervising Physician Co-Signing Physician Notes Agree with BARBER Ruiz as above Interviewed and Examined patient and agree with above Abd: Soft, NT, Distended, minimal BS Continue current therapy and supportive care No plans for invasive GI workup History of Present Illness Reason for Consultation: "UGIB" Attending Physician: Xavier Jain MD History of Present Illness Patient is a 73 yo male with PMH of COPD, CAD, HLD, HTN, CVA, afib, chronic hypoxic respiratory failure, & DM2 who recently on 07/13/23 underwent an endovascular repair with visceral aorta & infrarenal abdominal aorta grafting at [facility]. Unfortunately, he suffered significant post operative complications of a CVA affecting the brigido, left thalmus, hippocampus, corpus callosum, temporal lobe, occipital lobe, bilateral cerebellum, & kidney infarction. He was discharged with a persistent endovascular leak to [facility] on Coumadin & Plavix. He presented to [facility] with post-operative ileus as well as persistent evidence of an endovascular leak on imaging and an INR of 8.4. Surgery following for ileus & managing conservatively. BP 89/55 HR 153 at present. Due to an H/H of 10.1/31.8 and heme positive stool, GI was consulted by the hospitalist service. Patient takes Pantoprazole 40 mg daily at home. We do not have previous records of any prior GI work-up. It does appear he is on Ursodiol and the reason is unclear. No bowel movements have been logged since admission (patient with ileus) and there is no overt GI bleeding. He was initiated on an IV Protonix gtt by the primary team. Allergies Allergy/AdvReac Type Severity Reaction Status Date / Time diltiazem Allergy Severe throat Verified 07/25/23 10:55 tightness doxycycline Allergy Severe SOB Verified 07/25/23 10:55 mometasone furoate AdvReac Mild nausea and Verified 07/25/23 10:55 [From Alondra Martinez] vomiting Home Medications Medication Instructions Recorded Confirmed Type atorvastatin 40 mg tablet 80 mg PO DAILY 07/25/23 07/25/23 History baclofen 10 mg tablet 10 mg PO Q8H 07/25/23 07/25/23 History clopidogrel 75 mg tablet 75 mg PO DAILY 07/25/23 07/25/23 History cyproheptadine 4 mg tablet 4 mg PO HS 07/25/23 07/25/23 History docusate sodium 100 mg tablet 100 mg PO BID 07/25/23 07/25/23 History fluticasone furoate 100 1 inh inhalation DAILY 07/25/23 07/25/23 History mcg-vilanterol 25 mcg/dose inhalation powder gabapentin 300 mg capsule 300 mg PO TID 07/25/23 07/25/23 History pantoprazole 40 mg tablet,delayed 40 mg PO DAILY 07/25/23 07/25/23 History release therapeutic multivitamin 1 tab PO DAILY 07/25/23 07/25/23 History umeclidinium 62.5 mcg/actuation 1 inh inhalation DAILY 07/25/23 07/25/23 History blister powder for inhalation ursodiol 250 mg tablet 125 mg PO BID 07/25/23 07/25/23 History warfarin 5 mg tablet 10 mg PO DAILY 07/25/23 07/25/23 History Patient History Medical History AAA (abdominal aortic aneurysm) CAD (coronary artery disease) hx of mI in 1992 HLD (hyperlipidemia) HTN (hypertension) COPD (chronic obstructive pulmonary disease) History of CVA (cerebrovascular accident) PAF (paroxysmal atrial fibrillation) Chronic hypoxic respiratory failure T2DM (type 2 diabetes mellitus) Surgical History H/O thoracic aortic aneurysm repair 2021 Hx of cataract surgery History of tonsillectomy and adenoidectomy Hx of appendectomy S/P AAA repair 07/14/23 endovascular repair of endoleak S/P EVAR 02/20/2021 with [place] Stent graft performed at [facility] in [place]. He presented to [facility] 04/21/2021 with acute, severe epigastric pain, nausea, and vomiting. Work-up included CT abdomen/pelvis revealing s/p EVAR with possible type 1 vs type 3 endoleak. S/P coil embolization of aneurysmal sac and coil embolization of feeding lumbar arteries by Dr. Carrillo on 07/10/2021 Post operative imaging demonstrated persistent endoleak, with some concern regarding a Type 1a endoleak. S/P physician modified endograft on 07/14/2023 Family History Other CHF (congestive heart failure) Diabetes Stroke Social History Smoking Status: Former smoker Tobacco Type: Cigarettes Second Hand Exposure: No; Do You Dip or Chew Tobacco: No; Tobacco Cessation Education Requested by Patient: No Hx Alcohol Use: Yes Alcohol type: beer and hard liquor Hx Substance Use: No Preferred Language: American Communication Ability: Effective Communication Ability Comment: previous CVA slurred speech, asphagia and Weakness of (R)UE and (R)LE [employer] Required: No Beliefs That Will Affect Care: None Current Living Situation: Rehab Current Living Situation Comment: Prior to last procedure pt lived at home with grand-daughter and her husban Feels Safe at Home: Yes Safety Concerns: Feels Safe At This Time Review of Systems Constitutional: no fever and no chills Respiratory: no cough and no dyspnea Cardiovascular: no chest pain Gastrointestinal: + change in bowel habits and + constipat ion; no coffee ground emesis, no hematemesis, no blood in stools and no melena Physical Exam Constitutional: + ill appearing Respiratory: normal respiratory effort Cardiovascular: Rate/Rhythm: + tachycardic Gastrointestinal (Abdomen): Inspection/Auscultation: + abdomen distended NG in place Psychiatric: Orientation: alert and oriented x 3 Results & Data Vital Signs (Past 12 Hours) Vital Signs Temp Pulse Pulse Resp BP Pulse Ox O2 Del Method 07/26/23 08:59 153 H 21 89/55 L 94 Nasal Cannula 07/26/23 07:37 108 H 17 97 Nasal Cannula 07/26/23 07:08 36.5 C 104 H 17 148/80 H 98 Nasal Cannula 07/26/23 02:51 36.5 C 90 20 132/77 98 Nasal Cannula 07/25/23 23:47 Nasal Cannula 07/25/23 23:45 99 H 07/25/23 23:09 36.5 C 86 22 111/67 100 Nasal Cannula O2 Flow Rate 07/26/23 08:59 2 07/26/23 07:37 4 07/26/23 07:08 4 07/26/23 02:51 4 07/25/23 23:47 3 07/25/23 23:45 07/25/23 23:09 6 PG Care Time/CCT Total # of Minutes Spent Total Time Spent with Patient: Total time spent is greater than 50% in coordination of care (as documented) at patient's floor/unit and/or counseling patient: Coding Level of Care Code 51115 INT INP/OBS CARE 3/75MIN Diagnoses Anemia D64.9
--- NOTE | 2023-07-26 10:48 | Cardiology Consultation ---
Date of Consultation July 26, 2023 Assessment & Plan (1) Atrial fibrillation with RVR: (2) Supratherapeutic INR: (3) History of CVA (cerebrovascular accident): (4) Leakage of aortic graft: (5) Ileus: Plan (1) Atrial fibrillation with RVR: Given atrial fibrillation with rapid ventricular response in the setting of relative hypotension, proceed with digoxin 250 mcg x 1 now and repeat dose of 125 mcg at 1600 (2) Supratherapeutic INR: Initial INR had been 5.6 on presentation and trended up to 8.4 in the on call hours of this morning. Hemoglobin relatively stable at 10.1 g/dL. Patient had been found to have heme positive stool and given abdominal complaints and CT findings of suggestion of ileus or bowel obstruction as well as history of abdominal aortic aneurysm repair with endoleaks graft, patient has received 10 mg of IV vitamin K. (3) History of CVA (cerebrovascular accident): Patient had previously been on warfarin plus aspirin given recurrent cerebrovascular events on direct oral anticoagulant therapy and then on warfarin alone. Patient recently had repeat events earlier this month as noted prompting transition from aspirin to clopidogrel, plus warfarin. Clopidogrel and warfarin currently on hold with noted high INR. Protonix infusion started. Patient felt to be at high risk for both bleeding and thrombotic occlusion. For now we will allow INR to trend down and will consider heparin bridge when indicated. (4) Leakage of aortic graft: Is difficult to determine what is acute versus chronic findings having recently had complex repair. (5) Ileus: General surgery consultation noted and appreciated. Nasogastric tube in place for decompression. GI consulted due to heme positive stool. History of Present Illness Attending Physician: Xavier Jain MD History of Present Illness Mr Byrne is a 73-year-old male seen in cardiology consultation per the request of Dr. Jain for the evaluation of atrial fibrillation with rapid ventricular response. Patient recently admitted to [facility] from 07/14/2023 until 07/22/2023 with principal discharge diagnosis of a type Ia endoleak of the abdominal aortic graft. Patient was found to have a 7.5 cm juxtarenal abdominal aortic aneurysm. Patient underwent endovascular repair of visceral aorta and infrarenal abdominal aorta with a Gillett excluder fenestrated aortic endograft patient required exposure to the left axillary artery for placement of sheets. Percutaneous bilateral femoral access also performed. Patient with high blood pressure postoperatively. He had been assessed by neurology due to a change in his speech and an MRI and CT angiogram showed acute/subacute multifocal posterior circulation strokes likely cardioembolic etiology. Patient bridged to warfarin and clopidogrel. An echocardiogram was attempted during his admission at [facility] on 07/19/2023 however the study was technically limited due to poor patient cooperation and poor acoustic windows. Report describes very limited views suggestive of normal LV systolic function. No additional comment could be made. Patient readmitted to [facility] on 07/25/23 having presented from [facility] with complaint of shortness of breath with concerns of aspiration pneumonia as well as ileus. A nasogastric tube has been placed. Initial EKG and telemetry revealed sinus tachycardia and his heart rates had improved overnight last night however 8:27 AM while on telemetry he was observed to revert to atrial fibrillation with rapid ventricular sponsor 148 bpm. Blood pressure was low at the time of conversion to atrial fibrillation with blood pressure reading of 89/55 at 8:59 AM which subsequently improved to 110/59 at the time of my bedside evaluation. Patient with generalized complaint of not feeling well without definite chest pain or shortness of breath or subjective palpitations at the time of my assessment. Past Medical History: 1.CAD, suspected MD in 1992 a.Negative nuclear stress 01/2022 2.HTN 3.PAF, Dx 05/2021 in the setting of COPD exacerbation and pneumonia a.[id number] score of 6 (age, HTN, CAD, DM, CVA 2)-- on coumadin (failed Eliquis 01/2023) 4.Chronic resp failure, COPD, chronic supplemental o2 use (3-4L) a.Pulmonary nodule b.Former smoker, quit 05/2021 5.H/o AAA repair, S/P EVAR (Gillett stent) 02/20/21 at [place], [place] on Mar 20, 2021, Residual AAA sac measures 5.8 cm at greatest diameter with evidence of type 3a endoleak- following with vasc surg a.Repeat endovascular aneurysm/endoleak repair with Dr. 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 8.SIADH, follows with Nephrology Allergies Allergy/AdvReac Type Severity Reaction Status Date / Time diltiazem Allergy Severe throat Verified 07/25/23 10:55 tightness doxycycline Allergy Severe SOB Verified 07/25/23 10:55 mometasone furoate AdvReac Mild nausea and Verified 07/25/23 10:55 [From Alondra Martinez] vomiting Home Medications Medication Instructions Recorded Confirmed Type atorvastatin 40 mg tablet 80 mg PO DAILY 07/25/23 07/25/23 History baclofen 10 mg tablet 10 mg PO Q8H 07/25/23 07/25/23 History clopidogrel 75 mg tablet 75 mg PO DAILY 07/25/23 07/25/23 History cyproheptadine 4 mg tablet 4 mg PO HS 07/25/23 07/25/23 History docusate sodium 100 mg tablet 100 mg PO BID 07/25/23 07/25/23 History fluticasone furoate 100 1 inh inhalation DAILY 07/25/23 07/25/23 History mcg-vilanterol 25 mcg/dose inhalation powder gabapentin 300 mg capsule 300 mg PO TID 07/25/23 07/25/23 History pantoprazole 40 mg tablet,delayed 40 mg PO DAILY 07/25/23 07/25/23 History release therapeutic multivitamin 1 tab PO DAILY 07/25/23 07/25/23 History umeclidinium 62.5 mcg/actuation 1 inh inhalation DAILY 07/25/23 07/25/23 History blister powder for inhalation ursodiol 250 mg tablet 125 mg PO BID 07/25/23 07/25/23 History warfarin 5 mg tablet 10 mg PO DAILY 07/25/23 07/25/23 History Patient History Medical History AAA (abdominal aortic aneurysm) CAD (coronary artery disease) hx of mI in 1992 HLD (hyperlipidemia) HTN (hypertension) COPD (chronic obstructive pulmonary disease) History of CVA (cerebrovascular accident) PAF (paroxysmal atrial fibrillation) Chronic hypoxic respiratory failure T2DM (type 2 diabetes mellitus) Surgical History H/O thoracic aortic aneurysm repair 2021 Hx of cataract surgery History of tonsillectomy and adenoidectomy Hx of appendectomy S/P AAA repair 07/14/23 endovascular repair of endoleak S/P EVAR 02/20/2021 with Gillett Stent graft performed at [facility] in [place]. He presented to [facility] 04/21/2021 with acute, severe epigastric pain, nausea, and vomiting. Work-up included CT abdomen/pelvis revealing s/p EVAR with possible type 1 vs type 3 endoleak. S/P coil embolization of aneurysmal sac and coil embolization of feeding lumbar arteries by Dr. Carrillo on 07/10/2021 Post operative imaging demonstrated persistent endoleak, with some concern regarding a Type 1a endoleak. S/P physician modified endograft on 07/14/2023 Family History Other CHF (congestive heart failure) Diabetes Stroke Social History Smoking Status: Former smoker Tobacco Type: Cigarettes Second Hand Exposure: No; Do You Dip or Chew Tobacco: No; Tobacco Cessation Education Requested by Patient: No Hx Alcohol Use: Yes Alcohol type: beer and hard liquor Hx Substance Use: No Preferred Language: Latvian Communication Ability: Impaired Communication Ability Comment: previous CVA slurred speech, asphagia and Weakness of (R)UE and (R)LE Utility Technician Required: No Beliefs That Will Affect Care: None Current Living Situation: Rehab Current Living Situation Comment: Prior to last procedure pt lived at home with grand-daughter and her husban Feels Safe at Home: Yes Safety Concerns: Feels Safe At This Time Review of Systems Review of Systems: All systems reviewed & are unremarkable except as noted in HPI & below Physical Exam Constitutional: + ill appearing Respiratory: + cough; no respiratory distress Ausc ultation: + diminished lung sounds Cardiovascular: RRR, no murmur, no edema Gastrointestinal (Abdomen): Subtle mild diffuse abdominal tenderness, nothing focal. Neurologic: PERRL, EOMI, accommodation nl, no face palsy, no dysarthria Results & Data Vital Signs (Past 12 Hours) Vital Signs Temp Pulse Pulse Resp BP BP Pulse Ox 07/26/23 10:08 117 H 19 110/59 L 93 07/26/23 09:30 118 H 112/62 07/26/23 09:15 153 H 100/60 07/26/23 08:59 153 H 21 89/55 L 94 07/26/23 07:37 108 H 17 97 07/26/23 07:08 36.5 C 104 H 17 148/80 H 98 07/26/23 02:51 36.5 C 90 20 132/77 98 07/25/23 23:47 07/25/23 23:45 99 H 07/25/23 23:09 36.5 C 86 22 111/67 100 O2 Del Method O2 Flow Rate 07/26/23 10:08 Nasal Cannula 2 07/26/23 09:30 07/26/23 09:15 07/26/23 08:59 Nasal Cannula 2 07/26/23 07:37 Nasal Cannula 4 07/26/23 07:08 Nasal Cannula 4 07/26/23 02:51 Nasal Cannula 4 07/25/23 23:47 Nasal Cannula 3 07/25/23 23:45 07/25/23 23:09 Nasal Cannula 6 Laboratory Results Cardiac Enzymes 07/26/23 Range/Units 04:28 AST 27 (13-39) U/L Coagulation 07/26/23 Range/Units 04:28 PT 80.5 H (9.0-12.0) Seconds CBC 07/26/23 07/26/23 Range/Units 04:28 07:55 WBC 4.75 L D (4.8-10.8) K/ul RBC 3.15 L (4.70-6.10) M/uL Hgb 9.4 L 10.1 L (14.0-18.0) g/dl Hct 29.3 L 31.8 L (42.0-52.0) % Plt Count 232 (130-400) K/uL Neut # (Auto) 3.67 (1.40-6.50) K/uL Lymph # (Auto) 0.36 L (1.20-3.40) K/uL [place] # (Auto) 0.60 H (0.11-0.59) K/uL Eos # (Auto) 0.00 (0.00-0.50) K/uL Baso # (Auto) 0.08 (0.00-0.20) K/uL Comprehensive Metabolic Panel 07/26/23 Range/Units 04:28 Sodium 138 (136-145) mmol/L Potassium 3.7 (3.5-5.1) mmol/L Chloride 101 (98-107) mmol/L Carbon Dioxide 30 (21-32) mmol/L BUN 54 H (6-23) mg/dl Creatinine 1.01 (0.6-1.4) mg/dl Glucose 153 H (70-99(Fasting)) mg/dl Calcium 8.8 (8.6-10.3) mg/dl AST 27 (13-39) U/L ALT 38 (7-52) U/L Alkaline Phosphatase 113 H (34-104) U/L Total Protein 6.0 (6.0-8.3) gm/dl Albumin 3.1 L (3.4-5.0) gm/dl Intake and Output 07/25/23 07/26/23 07/26/23 22:59 06:59 14:59 Intake Total 100 / 1380 1100 / 1380 691 / 691 Output Total 850 / 1300 450 / 1300 Balance -750 / 80 650 / 80 691 / 691 Intake: IV 100 / 1300 1100 / 1300 691 / 691 PANTOprazole 80 mg In Dextrose 120 / 120 5% 100 ml @ 480 mls/hr IV ONE STA Rx#:[id number] Phytonadione 10 mg In Dextrose 51 / 51 5% 50 ml @ 102 mls/hr IV ONE ONE Rx#:[id number] Piperacillin/Tazobactam 4.5 gm 100 / 200 100 / 200 In Dextrose 5% Mini-B 100 ml @ 25 mls/hr IV Q8H [facility] Rx#: [id number] Potassium Chloride / Wtr 10 meq 200 / 200 In 100 ml @ 100 mls/hr IV Q1H [facility] Rx#:[id number] Sodium Chloride 0.9% 1,000 ml @ 1000 / 1000 320 / 320 80 mls/hr IV .[id number] [facility] Rx#: [id number] Output: Urine Amount (Catheter) 850 / 1200 350 / 1200 Yun/Indwelling 850 / 1200 350 / 1200 Gastric Drainage 100 / 100 Nasogastric 100 / 100 Other: Other Intake Source Patient is NPO Patient is NPO Weight 63.9 kg 63.9 kg Weight Measurement Method Built in [facility] Built in [facility] Diagnostic Findings EKG performed at 9:02 AM interpreted pendantly: Atrial fibrillation with rapid ventricular sponsor 140 bpm, subtle ST-T wave abnormality suggestive of inferior ischemia. Compared to the previous tracing performed 07/25/2023, atrial fibrillation has replaced sinus tachycardia, subtle ST segment depression noted.
[2023-07-26] MEDS: DIGOXIN 250 MCG in SYRINGE 9 ML IV STA (11:50)
[2023-07-26] MEDS: ATORVASTATIN 40 MG TAB PO SCH (11:55)
[2023-07-26] MEDS: MULTIVITAMIN TAB PO SCH (11:56)
--- NOTE | 2023-07-26 13:14 | Electrocardiogram Report ---
Test Reason : Blood Pressure : / mmHG Vent. Rate : 148 BPM Atrial Rate : 111 BPM P-R Int : 000 ms QRS Dur : 082 ms QT Int : 244 ms P-R-T Axes : 000 062 248 degrees QTc Int : 383 ms Poor data quality, interpretation may be adversely affected Atrial fibrillation with rapid ventricular response Abnormal ECG When compared with ECG of 25-JUL-2023 05:38, Atrial fibrillation has replaced Sinus rhythm ST now depressed in Lateral leads T wave inversion now evident in Inferior leads Nonspecific T wave abnormality, worse in Anterolateral leads Confirmed by Octavio Monique ([id number]) on 07/26/2023 1:14:19 PM Referred By: REFERRED SELF Confirmed By:Octavio Monique
[2023-07-26] MEDS: METOPROLOL TARTRATE 1 MG/ML VIAL IV PRN (14:04)
[2023-07-26 15:19] LABS: Hematocrit (blood only) 30.1 % (42.0-52.0); Hemoglobin 9.6 g/dl (14.0-18.0)
[2023-07-26 15:28] LABS: INR 1.7 (0.9-1.1); Prothrombin Time 17.7 Seconds (9.0-12.0)
[2023-07-26 16:06] LABS: Magnesium 1.9 mg/dl (1.7-2.4)
[2023-07-26] MEDS: DIGOXIN 125 MCG in SYRINGE 9.5 ML IV SCH (16:18)
[2023-07-26 16:19] LABS: Thyroid Stimulating Hormone 2.132 uIu/ml (0.300-4.500)
[2023-07-26] MEDS: MAGNESIUM SULFATE / D5W 1 GM/100 ML BAG IV ONE (16:57)
[2023-07-27 06:07] LABS: Hematocrit (blood only) 30.1 % (42.0-52.0); Hemoglobin 9.5 g/dl (14.0-18.0); Mean Corpuscular Hemoglobin 29.7 pg (25.0-34.0); Mean Corpuscular Hgb Conc 31.6 g/dL (32.0-36.0); Mean Corpuscular Volume 94.1 fL (80.0-100.0); Mean Platelet Volume 9.3 fL (9.4-12.4); Platelet Count 245 K/uL (130-400); RDW Coefficient of Variation 13.8 % (11.5-14.5); RDW Standard Deviation 47.1 fL (36.4-46.3); White Blood Count 4.78 K/ul (4.8-10.8)
[2023-07-27 06:20] LABS: BUN Creatinine Ratio 49.1 (10-20); Calcium 8.4 mg/dl (8.6-10.3); Creatinine Clr Calc Pharmacy 52.4 ml/min; Est GFR (African American) 75.7 ml/min; Est GFR (Non-African American) 65.3 ml/min; Magnesium 2.1 mg/dl (1.7-2.4); Potassium 3.7 mmol/L (3.5-5.1)
[2023-07-27 06:31] LABS: INR 1.2 (0.9-1.1); Prothrombin Time 13.5 Seconds (9.0-12.0)
--- NOTE | 2023-07-27 06:42 | XRay Report ---
XR chest 1V portable CLINICAL HISTORY: low o2 COMPARISON STUDY: Chest CT July 25, 2023. Chest radiograph July 26, 2023. FINDINGS: Aortoiliac stent graft is partially imaged. Tip of nasogastric tube is below the lower aspe ct of the image but at least within the gastric cardia. Skin folds project over the chest. There is n o pneumothorax or pleural effusion. Cardiomediastinal silhouette is normal. There is severe emphysema . Right lower lung densities persist. IMPRESSION: 1. No significant change in right lower lung densities. The appearance favors atelectasis although pn eumonia/aspiration pneumonitis could appear similar. 2. Emphysema. ACT 112: Negative or not required by law. Electronically signed by: Edouard Edgar M.D. 07/27/2023 6:40 AM
--- NOTE | 2023-07-27 07:44 | Surgery Progress Note ---
<Statement entered by Elizabeth Evans DO - 07/27/23 11:59> I have seen and examined this patient with the surgical PA. I agree with this plan. Date of Service July 27, 2023 Assessment & Plan (1) Ileus: Plan: Pt denies abd pain having BMs and passing flatus abd still appears distended, mildly firm NG tube with greenish color o/p Advance NG tube to 65- 66cm Continue NG tube for decompression Ordered upright KUB WBC 4.7 No acute surgical intervention Admission and Anticipated Discharge Date Admission Date: July 25, 2023 Subjective pt reports +flatus and sm bm this AM Denies abd pain Review of Systems Respiratory: + cough, + chest congestion and + dyspne a Gastrointestinal: + bloating; no abdominal pain, no nausea and no vomiting Physical Exam Constitutional: + ill appearing and comfortable; no acut e distress Respiratory: + uses accessory muscles, + cough and ab le to speak in complete sentences Cardiovascular: Rate/Rhythm: + tachycardic Gastrointestinal (Abdomen): Inspection/Auscultation: + abdomen distended Percussion/Palpation: + abdomen firm (mild); abdomen not rigid Results & Data Vital Signs (Past 12 Hours) Vital Signs Temp Pulse Pulse Resp BP BP Pulse Ox 07/27/23 07:19 97.9 F 147 H 20 118/74 95 07/27/23 07:05 20 98 07/27/23 03:02 99.0 F 137 H 18 123/66 98 07/26/23 22:53 98.1 F 98 H 20 110/69 91 07/26/23 21:46 128 H 99/59 L 07/26/23 21:14 153 H 103/53 L 07/26/23 20:00 07/26/23 20:00 98.2 F 151 H 20 103/53 L 96 O2 Del Method O2 Flow Rate 07/27/23 07:19 Nasal Cannula 3 07/27/23 07:05 Nasal Cannula 4 07/27/23 03:02 Nasal Cannula 3 07/26/23 22:53 Nasal Cannula 3 07/26/23 21:46 07/26/23 21:14 07/26/23 20:00 Nasal Cannula 3 07/26/23 20:00 Nasal Cannula 4 PG Care Time/CCT Total # of Minutes Spent Total Time Spent with Patient: Total time spent is greater than 50% in coordination of care (as documented) at patient's floor/unit and/or counseling patient: Coding Level of Care Code 30033 SUB INP/OBS CARE 04/28MIN Diagnoses Ileus K56.7
[2023-07-27] MEDS: BACLOFEN 10 MG TAB PO PRN (07:48)
[2023-07-27] MEDS: METOPROLOL TARTRATE 25 MG TAB PO SCH (09:19)
--- NOTE | 2023-07-27 09:21 | XRay Report ---
KUB HISTORY: Acute generalized abdominal pain ileus COMPARISON: 07/25/2023 FINDINGS: Distal tip of enteric tube projects over the expected location of the gastric body. Cardiom egaly. Gaseous distended loops of large and small bowel redemonstrated. Bowel filled left inguinal hernia re demonstrated. Aortobiiliac stent graft is noted along with bilateral renal arterial stents. Apparent embolization coils project over the right abdomen. No renal calculi. No ureteral calculi. No pneumope ritoneum or pneumatosis. No fracture. IMPRESSION: 1. Similar appearance of the gaseous distended large and small bowel loops suggestive of ileus versus distal obstruction. Follow-up recommended. 2. Bowel filled left inguinal hernia redemonstrated. 3. Distal tip of enteric tube projects over the gastric body. ACT 112: Negative or not required by law. The above report was generated using voice recognition software. It may contain grammatical, syntax o r spelling errors. Electronically signed by: Melvin Gonzalez M.D. 07/27/2023 9:19 AM
--- NOTE | 2023-07-27 09:23 | XRay Report ---
XR chest 1V not portable CLINICAL HISTORY: Shortness of breath. COMPARISON STUDY: Chest CT July 25, 2023. Chest radiograph performed earlier today. FINDINGS: Tip of nasogastric tube is depicted on the KUB which will be reported separately. No pneumo thorax or pleural effusion. There are severe emphysema. Cardiomediastinal silhouette is stable. Linea r right lower lung densities remain unchanged. IMPRESSION: 1. No change in linear right basilar densities. The findings favor atelectasis although pneumonia or aspiration pneumonitis could appear similar. 2. Emphysema. ACT 112: Negative or not required by law. Electronically signed by: Edouard Edgar M.D. 07/27/2023 9:21 AM
[2023-07-27] MEDS ORDERED: Heparin IV Adult Wt-Based Low-Dose *NO* INITIAL Bolus Protocol IV STA (09:25)
[2023-07-27] MEDS ORDERED: Heparin IV Adult Wt-Based Low-Dose *NO* INITIAL Bolus Protocol IV SCH (09:30)
[2023-07-27] MEDS: HEPARIN SODIUM/DEXTROSE 25,000 UNITS/500 ML BAG IV SCH (09:43)
[2023-07-27 10:23] LABS: Phosphorus 2.5 mg/dl (2.5-4.9)
[2023-07-27 16:56] LABS: ANTI-Xa, UFH(UnfractionatedHep 0.21 IU/ml (0.3-0.7)
--- NOTE | 2023-07-27 17:00 | Cardiology Progress Note ---
Date of Service July 27, 2023 Assessment & Plan (1) Atrial fibrillation with RVR: (2) Supratherapeutic INR: (3) History of CVA (cerebrovascular accident): (4) Leakage of aortic graft: (5) Ileus: Plan (1) Atrial fibrillation with RVR: Recurrent AF noted on 07/26/23, converted back to SR at 9:32am on 07/27/23. Telemetry reveals SR in the range of 90-100 bpm. Continue IV digoxin. Change metoprolol to 5 mg IV Q6 hours, for heart rate control . IV formulation preferred given ileus with NPO status and NG tube. (2) Supratherapeutic INR: Initial INR had been 5.6 on presentation and trended up to 8.4 in the early childhood assistant hours of this morning. Hemoglobin relatively stable at 10.1 g/dL. Patient had been found to have heme positive stool and given abdominal complaints and CT findings of suggestion of ileus or bowel obstruction as well as history of abdominal aortic aneurysm repair with endoleaks graft, patient had received 10 mg of IV vitamin K. INR down to 1.2 on 07/27/23 , with stable Hgb. Start heparin bridge with noted NPO status. (3) History of CVA (cerebrovascular accident): heparin bridge. Will consider resuming clopidogrel as hospital stay progresses. (4) Leakage of aortic graft: Is difficult to determine what is acute versus chronic findings having recently had complex repair. (5) Ileus: General surgery input noted and appreciate. Bowel rest, NG tube for decompression. Admission and Anticipated Discharge Date Admission Date: July 25, 2023 Subjective Pt seen in follow up. Denies palpitations. NGTube in place. Physical Exam Constitutional: + ill appearing Respiratory: + cough; no respiratory distress Ausc ultation: + diminished lung sounds Cardiovascular: RRR, no murmur, no edema Neurologic: PERRL, EOMI, accommodation nl, no face palsy, no dysarthria Results & Data Vital Signs (Past 12 Hours) Vital Signs Temp Pulse Pulse Resp BP Pulse Ox O2 Del Method 07/27/23 15:50 102 H 07/27/23 14:58 36.3 C L 101 H 16 121/69 95 Nasal Cannula 07/27/23 11:33 36.3 C L 101 H 16 120/67 99 Nasal Cannula 07/27/23 08:04 118 H 04/24/24 08:00 Nasal Cannula 07/27/23 07:46 142 H 07/27/23 07:19 36.6 C 147 H 20 118/74 95 Nasal Cannula 07/27/23 07:05 20 98 Nasal Cannula O2 Flow Rate 07/27/23 15:50 07/27/23 14:58 3 07/27/23 11:33 3 07/27/23 08:04 07/27/23 08:00 3 07/27/23 07:46 07/27/23 07:19 3 07/27/23 07:05 4
[2023-07-27] MEDS: METOPROLOL TARTRATE 1 MG/ML VIAL IV SCH (17:29)
--- NOTE | 2023-07-27 17:53 | Hospitalist Progress Note ---
Date of Service July 27, 2023 Assessment & Plan (1) Shortness of breath: (2) Aspiration pneumonia: (3) Ileus: (4) Supratherapeutic INR: (5) S/P endovascular aneurysm repair: (6) Chronic hypoxic respiratory failure: (7) History of CVA (cerebrovascular accident): (8) COPD (chronic obstructive pulmonary disease): Plan This is a 73-year-old male who has significant past medical history of COPD with chronic hypoxic respiratory failure on 3 L of O2 via NC, PAF, CAD, HTN, HLD, prior right thalamic CVA, T2DM, endovascular repair of AAA in February 2021 who presents to ED secondary to shortness of breath. Acute on chronic hypoxic respiratory failure Possible aspiration pneumonia H/O COPD on 3 L of oxygen, bronchiectasis --CTA chest shows mucoid material within the trachea and right lower lobe bronchus. Pulmonary will present on right lower extremity. Advanced emphysema Has been on intravenous Zosyn, Nebulized bronchodilators Supplemental oxygen to keep saturation 88 to 92% Aspiration precautions Speech eval as able Postoperative ileus H/O vascular surgery on July 14, 2023 Postoperative Period was complicated with ileus requiring peripheral parenteral nutrition. --CT abdomen/pelvis shows distention of year and fluid level of large and small bowel, moderate size inguinal hernia. Finding likely ileus; however close follow-up needed to exclude partial obstruction Continue bowel rest, IV fluids Continue NG tube Patient had bowel movement overnight Appreciate surgery input and recommendation Currently no indication for surgery Remains hemodynamically stable with unremarkable electrolytes Abdominal distention and GI symptoms have been improving Concern for GI bleed Endovascular leak with recent endovascular repair at [facility]. In setting of supratherapeutic INR Coumadin, Plavix are on hold Started on Protonix drip Noted to have drop in hemoglobin to 9 from 11 on of this month Melanotic stool is noted as well that was positive for blood Vitamin K 10 mg IV was given by the night doc INR dropped to 1.2 as of 07/27/2023 Discussed with the auto fleet manager and the patient started on intravenous heparin low-dose without bolus Appreciate GI evaluation and recommendation-no evidence of acute GI bleed and no need to do for any scope. If hemoglobin keeps dropping the patient will need to be transferred to [place] for endovascular leak A-fib RVR H/O paroxysmal A-fib Presented with supratherapeutic INR INR was reversed with vitamin K due to concern for GI bleed Check TSH Monitor and replete electrolytes as needed Received digoxin IV Lopressor as needed Cardiology on board Monitor and replete electrolytes as needed Beta-windy has been added Rate seems to be controlled and converted to sinus rhythm as of this afternoon Recent vascular surgery on July 14, 2023 Endoleak noted in CTA abdomen/pelvis Acute infarct of inferior pole of left kidney --CTA abdomen pelvis shows endoleak involving the graft, moderate-sized acute infarct of inferior pole of left kidney --ED physician discussed with vascular surgery on-call at [facility] on admission; as per the vascular surgeonthis findings were present; no interventions needs to be done Continue to monitor. Urinary retention with Yun in place Yun catheter was placed after urinary retention in post-op period Maintain Yun Trial of void after resolution of ileus. History of cardioembolic stroke Supratherapeutic INR Monitor INR Resume Plavix as able Continue statin CVA Patient developed right-sided weakness after the surgery. MRI showed cardioembolic stroke on posterior circulation Patient was placed on Coumadin and Plavix INR supratherapeutic on presentation Resume Coumadin, plavix as able PT OT evaluation Continue statin LFTs mildly elevated--consider to hold statin if LFTs worsen Chronic conditions: Hypertension Type 2 diabetes mellituscontinue on sliding scale, last a1c 5.1 on 07/18/23 Continue home medications as able DVT Px: Coumadin held--concern for GI bleed SCDs for now Started on intravenous heparin low-dose without bolus CODE STATUS Full code Admission and Anticipated Discharge Date Admission Date: July 25, 2023 Subjective 07/27/2023 The patient was seen and examined in telemetry He has been feeling shortness of breath and palpitation Denies any chest pain, abdominal discomfort but no abdominal pain. Denies nausea or vomiting Review of Systems Review of Systems: All systems reviewed and are unremarkable except as noted below Physical Exam Physical Exam: Lying in bed with acute distress due to shortness of breath Constitutional: + ill appearing and average body habitus Eyes: PERRL, conjunctivae normal, anicteric sclerae ENMT: external ear and nose normal, oropharynx normal Neck: trachea midline, no thyromegaly Respiratory: + respiratory distress Auscultation: + diminished lung sounds and + crackles (Occasional crackles at the bases) Cardiovascular: Rate/Rhythm: + tachycardic and + irregularly irregular Heart Sounds: normal S1, normal S2 and + murmur Extremities: no edema Gastrointestinal (Abdomen): Inspection/Auscultation: + abdomen distended and normal bowel sounds (Decreased) Percussion/Palpation: + abdomen tender and abdomen soft; no guarding and abdomen not rigid Musculoskeletal: No acute arthritis involving any of the joints Neurologic: normal touch/pain/proprioception and moves all extremities; no focal motor deficits Lymphatic: no cervical or axillary lymphadenopathy Results & Data Results & Data Vital Signs (Past 12 Hours) Vital Signs Temp Pulse Pulse Resp BP Pulse Ox O2 Del Method 07/27/23 17:29 102 H 07/27/23 15:50 102 H 07/27/23 14:58 36.3 C L 101 H 16 121/69 95 Nasal Cannula 07/27/23 11:33 36.3 C L 101 H 16 120/67 99 Nasal Cannula 07/27/23 08:04 118 H 07/27/23 08:00 Nasal Cannula 07/27/23 07:46 142 H 07/27/23 07:19 36.6 C 147 H 20 118/74 95 Nasal Cannula 07/27/23 07:05 20 98 Nasal Cannula O2 Flow Rate 07/27/23 17:29 07/27/23 15:50 07/27/23 14:58 3 07/27/23 11:33 3 07/27/23 08:04 07/27/23 08:00 3 07/27/23 07:46 07/27/23 07:19 3 07/27/23 07:05 4 Laboratory Results Short CBC 07/27/23 Range/Units 05:42 WBC 4.78 L (4.8-10.8) K/ul Hgb 9.5 L (14.0-18.0) g/dl Hct 30.1 L (42.0-52.0) % Plt Count 245 (130-400) K/uL BMP 07/27/23 05:42 Sodium 140 Potassium 3.7 Chloride 104 Carbon Dioxide 30 BUN 54 H Creatinine 1.10 Glucose 108 H Calcium 8.4 L Medications Administered Current Inpatient Medications Al Hydrox/Mg Hydrox/Simethicone (Aluminum/Magnesium Susp 30 Ml Udc) 15 ml PO Q4H PRN PRN Reason: Dyspepsia Stop: 08/24/23 12:32 Albuterol (Albut/Ipratrop 3mg/0.5mg Neb 3 Ml Vial) 3 ml NEB Q4HWA PRN; Protocol PRN Reason: Shortness Of Breath Or Wheezing Stop: 08/24/23 12:32 Atorvastatin Calcium (Atorvastatin 40 Mg Tab) 80 mg PO DAILY [facility] Stop: 08/25/23 08:59 Last Admin: 07/27/23 09:19 Dose: 80 mg Baclofen (Baclofen 10 Mg Tab) 10 mg PO Q8H PRN PRN Reason: back spasm Stop: 08/24/23 12:59 Last Admin: 07/27/23 07:48 Dose: 10 mg Budesonide (Budesonide 0.5 Mg/2 Ml Vial (Pulmicort)) 0.5 mg NEB BIDR [facility] Stop: 08/24/23 12:32 Last Admin: 07/27/23 07:04 Dose: 0.5 mg Docusate Sodium (Docusate Sodium 100 Mg Cap) 100 mg PO BID [facility] Stop: 08/24/23 20:59 Last Admin: 07/27/23 07:49 Dose: 100 mg Formoterol Fumarate (Formoterol 20 Mcg/2 Ml Vial) 20 mcg NEB BIDR [facility] Stop: 08/24/23 12:32 Last Admin: 07/27/23 07:04 Dose: 20 mcg Gabapentin (Gabapentin 300 Mg Cap) 300 mg PO TID [facility] Stop: 08/24/23 13:59 Last Admin: 07/27/23 12:57 Dose: 300 mg Guaifenesin (Guaifenesin 600 Mg Tabcr) 1,200 mg PO Q12 [facility] Stop: 08/24/23 20:59 Last Admin: 07/27/23 07:48 Dose: 1,200 mg Piperacillin Sod/Tazobactam (Sod 4.5 gm/ Dextrose) 100 mls @ 25 mls/hr IV Q8H [facility]; Protocol Stop: 08/01/23 15:59 Last Admin: 07/27/23 15:50 Dose: 25 mls/hr Acetaminophen (Ofirmev) 1,000 mg in 100 mls @ 400 mls/hr IV Q8H PRN PRN Reason: pain/fever Stop: 07/28/23 12:32 Sodium Chloride (Nss) 1,000 mls @ 75 mls/hr IV .[id number] [facility] Stop: 08/24/23 12:32 Last Admin: 07/27/23 09:43 Dose: 75 mls/hr Pantoprazole Sodium 40 mg/ (Dextrose) 100 mls @ 20 mls/hr IV Q5H [facility] Stop: 08/25/23 07:29 Last Admin: 07/27/23 17:26 Dose: 8 mg/hr, 20 mls/hr Digoxin 125 mcg/ Syringe 10 mls @ 2 mls/min IV DAILY@1600 [facility] Stop: 08/25/23 15:59 Last Admin: 07/27/23 15:50 Dose: 2 mls/min Heparin Sodium/Dextrose (Heparin Sodium/Dextrose) 25,000 units in 500 mls @ 16 mls/hr IV .Q24H [facility]; Protocol Stop: 08/26/23 09:44 Last Titration: 07/27/23 17:26 Dose: 800 units/hr, 16 mls/hr Metoprolol Tartrate (Metoprolol Tartrate 1 Mg/Ml Vial) 5 mg IV Q6 [facility] Stop: 08/26/23 17:59 Last Admin: 07/27/23 17:29 Dose: 5 mg Miscellaneous (Order Awaiting Action [Ursodiol 250 Mg Tablet)]) 1 each N/A QS [facility] Stop: 08/24/23 15:59 Last Admin: 07/27/23 13:50 Dose: Not Given Multivitamins (Multivitamin Tab) 1 tab PO DAILY [facility] Stop: 08/25/23 08:59 Last Admin: 07/27/23 07:47 Dose: 1 tab Ondansetron HCl (Ondansetron Inj 2 Mg/Ml 2 Ml Vial) 4 mg IV Q6H PRN PRN Reason: Nausea Stop: 08/24/23 12:32 Sodium Chloride (Sodium Chlor 7% 4 Ml Neb) 4 ml NEB BIDR [facility] Stop: 08/24/23 18:59 Last Admin: 07/27/23 07:04 Dose: 4 ml
[2023-07-27] MEDS ORDERED: METOPROLOL TARTRATE 25 MG TAB PO SCH (21:00)
[2023-07-28 00:12] LABS: ANTI-Xa, UFH(UnfractionatedHep 0.28 IU/ml (0.3-0.7)
[2023-07-28 07:55] LABS: ANTI-Xa, UFH(UnfractionatedHep 0.26 IU/ml (0.3-0.7); INR 1.3 (0.9-1.1); Prothrombin Time 13.8 Seconds (9.0-12.0)
[2023-07-28 07:58] LABS: Basophils # (auto) 0.02 K/uL (0.00-0.20); Basophils % (auto) 0.7 %; Eosinophils % (auto) 7.4 %; Hematocrit (blood only) 29.7 % (42.0-52.0); Hemoglobin 9.4 g/dl (14.0-18.0); Immature Granulocytes # (auto) 0.01 K/uL (0.01-0.20); Immature Granulocytes % (auto) 0.4 %; Lymphocytes # (auto) 0.27 K/uL (1.20-3.40); Mean Corpuscular Hemoglobin 29.7 pg (25.0-34.0); Mean Corpuscular Hgb Conc 31.6 g/dL (32.0-36.0); Mean Corpuscular Volume 93.7 fL (80.0-100.0); Mean Platelet Volume 9.1 fL (9.4-12.4); Monocytes # (auto) 0.68 K/uL (0.11-0.59); Monocytes % (auto) 25.1 %; Neutrophils # (auto) 1.53 K/uL (1.40-6.50); Neutrophils % (auto) 56.4 %; Platelet Count 186 K/uL (130-400); RDW Coefficient of Variation 13.7 % (11.5-14.5); RDW Standard Deviation 47.8 fL (36.4-46.3); Red Blood Count 3.17 M/uL (4.70-6.10); Toxic Granulation 2+; White Blood Count 2.71 K/ul (4.8-10.8)
[2023-07-28 08:04] LABS: BUN Creatinine Ratio 51.2 (10-20); Calcium 8.2 mg/dl (8.6-10.3); Creatinine Clr Calc Pharmacy 73.4 ml/min; Est GFR (African American) 100.3 ml/min; Est GFR (Non-African American) 86.5 ml/min; Phosphorus 1.6 mg/dl (2.5-4.9); Potassium 2.8 mmol/L (3.5-5.1)
[2023-07-28] MEDS ORDERED: POTASSIUM PHOS 3 MMOL/1 ML INFUSION IV STA (08:31)
[2023-07-28] MEDS: POTASSIUM CHLORIDE / WTR 10 MEQ/100 ML PLCT IV SCH (08:45)
[2023-07-28] MEDS: POTASSIUM PHOSPHATE 30 MMOL in SODIUM CHLORIDE 0.9% 500 ML IV ONE (09:26)
--- NOTE | 2023-07-28 10:58 | Surgery Progress Note ---
<Statement entered by Elizabeth Evans, - 07/28/23 14:12> I have seen and examined this patient and discussed it with the STEAM [employer]TER SUPERVISOR MAINTENANCE. I agree with the plan. Date of Service July 28, 2023 Assessment & Plan (1) Ileus: Plan: Pt denies abd pain abd still appears distended, mildly firm but soft KUB from yesterday reading 1. Similar appearance of the gaseous distended large and small bowel loops suggestive of ileus versus distal obstruction. Follow-up recommended. 2. Bowel filled left inguinal hernia redemonstrated. 3. Distal tip of enteric tube projects over the gastric body Patient still having bowel movements and reports passing flatus NG tube with no output documented in last 12 hours Patient reports the NG tube is doing nothing and wishes it to be removed Will discuss with Dr. Evans and further recommendations will be forthcoming. Admission and Anticipated Discharge Date Admission Date: July 25, 2023 Subjective Pt denies abd pain, nausea Reports BM this AM and passing flatus Review of Systems Gastrointestinal: + bloating; no abdominal pain, no nausea and no vomiting Physical Exam Constitutional: + ill appearing and comfortable; no acut e distress Gastrointestinal (Abdomen): Inspection/Auscultation: + abdomen distended Percussion/Palpation: + abdomen firm (mild); abdomen not rigid Results & Data Vital Signs (Past 12 Hours) Vital Signs Temp Pulse Pulse Resp BP BP Pulse Ox 07/28/23 08:00 99 H 07/28/23 08:00 07/28/23 07:20 86 18 97 07/28/23 07:07 91 H 07/28/23 06:40 92 H 128/75 07/28/23 03:19 97.7 F 92 H 20 128/75 99 07/28/23 00:37 86 07/28/23 00:03 91 H 129/70 07/27/23 23:25 98.1 F 91 H 20 129/70 100 07/27/23 22:57 96 H O2 Del Method O2 Flow Rate 07/28/23 08:00 07/28/23 08:00 Nasal Cannula 3 07/28/23 07:20 Nasal Cannula 3 07/28/23 07:07 07/28/23 06:40 07/28/23 03:19 Nasal Cannula 3 07/28/23 00:37 07/28/23 00:03 07/27/23 23:25 Nasal Cannula 3 07/27/23 22:57 PG Care Time/CCT Total # of Minutes Spent Total Time Spent with Patient: Total time spent is greater than 50% in coordination of care (as documented) at patient's floor/unit and/or counseling patient: Coding Level of Care Code 62751 SUB INP/OBS CARE 04/28MIN Diagnoses Ileus K56.7
--- NOTE | 2023-07-28 11:34 | Cardiology Progress Note ---
Date of Service July 28, 2023 Assessment & Plan (1) Atrial fibrillation with RVR: (2) Supratherapeutic INR: (3) History of CVA (cerebrovascular accident): (4) Leakage of aortic graft: (5) Ileus: Plan (1) Atrial fibrillation with RVR: Recurrent AF noted on 07/26/23, converted back to SR at 9:32am on 07/27/23. Telemetry reveals SR in the range of 90-100 bpm. Continue IV digoxin. Metoprolol to 5 mg IV Q6 hours, for heart rate control . IV formulation preferred given ileus with NPO status and NG tube. (2) Supratherapeutic INR: Initial INR had been 5.6 on presentation and trended up to 8.4 in the rail switchman hours of this morning. Patient had been found to have heme positive stool and given abdominal complaints and CT findings of suggestion of ileus or bowel obstruction as well as history of abdominal aortic aneurysm repair with endoleaks graft, patient had received 10 mg of IV vitamin K. INR down to 1.3 on 07/28/23 , with stable Hgb. Heparin bridge starting on 07/27/23 given NPO status. (3) History of CVA (cerebrovascular accident): heparin bridge. Will consider resuming clopidogrel as hospital stay progresses. (4) Leakage of aortic graft: Is difficult to determine what is acute versus chronic findings having recently had complex repair but findings appear chronic. (5) Ileus: General surgery input noted and appreciate. Bowel rest, NG tube for decompression. Replace potassium for level of 2.8 as already ordered by the primary service. Case reviewed by phone with Dr Bah for the purpose of coordination of care. Admission and Anticipated Discharge Date Admission Date: July 25, 2023 Subjective Pt seen in follow up. No cardiac complaints. Physical Exam Constitutional: + ill appearing Respiratory: + cough; no respiratory distress Ausc ultation: + diminished lung sounds Cardiovascular: RRR, no murmur, no edema Gastrointestinal (Abdomen): Inspection/Auscultation: + abdomen distended Neurologic: PERRL, EOMI, accommodation nl, no face palsy, no dysarthria Results & Data Vital Signs (Past 12 Hours) Vital Signs Temp Pulse Pulse Resp BP BP Pulse Ox 07/28/23 08:00 99 H 07/28/23 08:00 07/28/23 07:20 86 18 97 07/28/23 07:07 91 H 07/28/23 06:40 92 H 128/75 07/28/23 03:19 36.5 C 92 H 20 128/75 99 07/28/23 00:37 86 07/28/23 00:03 91 H 129/70 O2 Del Method O2 Flow Rate 07/28/23 08:00 07/28/23 08:00 Nasal Cannula 3 07/28/23 07:20 Nasal Cannula 3 07/28/23 07:07 07/28/23 06:40 07/28/23 03:19 Nasal Cannula 3 07/28/23 00:37 07/28/23 00:03 Laboratory Results Coagulation 07/28/23 Range/Units 07:01 PT 13.8 H (9.0-12.0) Seconds CBC 07/28/23 Range/Units 07:01 WBC 2.71 L (4.8-10.8) K/ul RBC 3.17 L (4.70-6.10) M/uL Hgb 9.4 L (14.0-18.0) g/dl Hct 29.7 L (42.0-52.0) % Plt Count 186 (130-400) K/uL Neut # (Auto) 1.53 (1.40-6.50) K/uL Lymph # (Auto) 0.27 L (1.20-3.40) K/uL Roberts # (Auto) 0.68 H (0.11-0.59) K/uL Eos # (Auto) 0.20 (0.00-0.50) K/uL Baso # (Auto) 0.02 (0.00-0.20) K/uL Comprehensive Metabolic Panel 07/28/23 Range/Units 07:01 Sodium 143 (136-145) mmol/L Potassium 2.8 L D (3.5-5.1) mmol/L Chloride 108 H (98-107) mmol/L Carbon Dioxide 30 (21-32) mmol/L BUN 42 H (6-23) mg/dl Creatinine 0.82 (0.6-1.4) mg/dl Glucose 102 H (70-99(Fasting)) mg/dl Calcium 8.2 L (8.6-10.3) mg/dl Intake and Output 07/27/23 07/28/23 07/28/23 22:59 06:59 14:59 Intake Total 1391.634 / 2306.284 285.400 / 2306.284 1116.400 / 1116.400 Output Total 300 / 1475 475 / 1475 Balance 1091.634 / 831.284 -189.600 / 621.312 3388.400 / 1115.400 Intake: IV 1391.634 / 2306.284 285.400 / 2306.284 1116.400 / 1116.400 Heparin Sodium/Dextrose 25,000 143.217 / 232.284 89.067 / 232.284 123.817 / 123.817 units In 500 ml @ 850 UNITS/HR 17 mls/hr IV .Q24H [facility] Rx#: [id number] PANTOprazole 40 mg In Dextrose 189.667 / 450.667 96.333 / 450.667 98 / 98 5% Mini-B 100 ml @ 8 MG/HR 20 mls/hr IV Q5H [facility] Rx#:[id number] Piperacillin/Tazobactam 4.5 gm 100 / 300 100 / 300 In Dextrose 5% Mini-B 100 ml @ 25 mls/hr IV Q8H [facility] Rx#: [id number] Potassium Chloride / Wtr 10 meq 168.333 / 168.333 In 100 ml @ 100 mls/hr IV Q1H [facility] Rx#:[id number] Sodium Chloride 0.9% 1,000 ml @ 958.75 / 1323.333 726.25 / 726.25 75 mls/hr IV .[id number] [facility] Rx#: [id number] Output: Urine Amount (Catheter) 300 / 1275 475 / 1275 Yun/Indwelling 300 / 1275 475 / 1275 Gastric Drainage 0 / 200 Nasogastric 0 / 200 # Bowel Movements Other: Other Intake Source npo Weight 66.7 kg Weight Measurement Method Built in [facility]
--- NOTE | 2023-07-28 15:02 | Hospitalist Progress Note ---
Date of Service July 28, 2023 Assessment & Plan (1) Shortness of breath: (2) Aspiration pneumonia: (3) Ileus: (4) Supratherapeutic INR: (5) S/P endovascular aneurysm repair: (6) Chronic hypoxic respiratory failure: (7) History of CVA (cerebrovascular accident): (8) COPD (chronic obstructive pulmonary disease): Plan This is a 73-year-old male who has significant past medical history of COPD with chronic hypoxic respiratory failure on 3 L of O2 via NC, PAF, CAD, HTN, HLD, prior right thalamic CVA, T2DM, endovascular repair of AAA in February 2021 who presents to ED secondary to shortness of breath. Acute on chronic hypoxic respiratory failure Possible aspiration pneumonia H/O COPD on 3 L of oxygen, bronchiectasis --CTA chest shows mucoid material within the trachea and right lower lobe bronchus. Pulmonary will present on right lower extremity. Advanced emphysema Has been on intravenous Zosyn, Nebulized bronchodilators Supplemental oxygen to keep saturation 88 to 92% Aspiration precautions Speech evaluation will be done tomorrow Postoperative ileus H/O vascular surgery on July 14, 2023 Postoperative Period was complicated with ileus requiring peripheral parenteral nutrition. --CT abdomen/pelvis shows distention of year and fluid level of large and small bowel, moderate size inguinal hernia. Finding likely ileus; however close follow-up needed to exclude partial obstruction Continue bowel rest, IV fluids Continue NG tube Patient had bowel movement overnight Appreciate surgery input and recommendation Currently no indication for surgery Remains hemodynamically stable with unremarkable electrolytes Abdominal distention and GI symptoms have been improving Bowel is moved We will replace phosphate and potassium and monitor NG tube has been taken out today-will get speech evaluation tomorrow Concern for GI bleed Endovascular leak with recent endovascular repair at [facility]. In setting of supratherapeutic INR Coumadin, Plavix are on hold Started on Protonix drip Noted to have drop in hemoglobin to 9 from 11 on of this month Melanotic stool is noted as well that was positive for blood Vitamin K 10 mg IV was given by the night doc INR dropped to 1.2 as of 07/27/2023 Discussed with the senior scientist and the patient started on intravenous heparin low-dose without bolus Appreciate GI evaluation and recommendation-no evidence of acute GI bleed and no need to do for any scope. If hemoglobin keeps dropping the patient will need to be transferred to [place] for endovascular leak Hemoglobin remains stable A-fib RVR H/O paroxysmal A-fib Presented with supratherapeutic INR INR was reversed with vitamin K due to concern for GI bleed Check TSH Monitor and replete electrolytes as needed Received digoxin IV Lopressor as needed Cardiology on board Monitor and replete electrolytes as needed Beta-windy has been added Rate seems to be controlled and converted to sinus rhythm as of this afternoon Remains in sinus rhythm Will restart oral Coumadin from tomorrow if possible Recent vascular surgery on July 14, 2023 Endoleak noted in CTA abdomen/pelvis Acute infarct of inferior pole of left kidney --CTA abdomen pelvis shows endoleak involving the graft, moderate-sized acute infarct of inferior pole of left kidney --ED physician discussed with vascular surgery on-call at [facility] [place] on admission; as per the vascular surgeonthis findings were present; no interventions needs to be done Continue to monitor. Urinary retention with Yun in place Yun catheter was placed after urinary retention in post-op period Maintain Yun Trial of void after resolution of ileus. History of cardioembolic stroke Supratherapeutic INR Monitor INR Resume Plavix as able Continue statin CVA Patient developed right-sided weakness after the surgery. MRI showed cardioembolic stroke on posterior circulation Patient was placed on Coumadin and Plavix INR supratherapeutic on presentation Resume Coumadin, plavix as able PT OT evaluation Continue statin LFTs mildly elevated--consider to hold statin if LFTs worsen Chronic conditions: Hypertension Type 2 diabetes mellituscontinue on sliding scale, last a1c 5.1 on 07/18/23 Continue home medications as able DVT Px: Coumadin held--concern for GI bleed SCDs for now Started on intravenous heparin low-dose without bolus CODE STATUS Full code Admission and Anticipated Discharge Date Admission Date: July 25, 2023 Subjective 07/27/2023 The patient was seen and examined in telemetry He has been feeling shortness of breath and palpitation Denies any chest pain, abdominal discomfort but no abdominal pain. Denies nausea or vomiting 07/28/2023 The patient was seen and examined in telemetry unit He has been feeling little better today and has had bowel movement Abdomen remains distended and feels discomfort Not much drainage from the NG tube and the tube will be taken out Reverted to sinus rhythm and maintaining Review of Systems Review of Systems: All systems reviewed and are unremarkable except as noted below Physical Exam Physical Exam: Lying in bed with acute distress due to shortness of breath Constitutional: + ill appearing and average body habitus Eyes: PERRL, conjunctivae normal, anicteric sclerae ENMT: external ear and nose normal, oropharynx normal Neck: trachea midline, no thyromegaly Respiratory: + respiratory distress Auscultation: + diminished lung sounds and + crackles (Occasional crackles at the bases) Cardiovascular: Rate/Rhythm: + tachycardic and + irregularly irregular Heart Sounds: normal S1, normal S2 and + murmur Extremities: no edema Gastrointestinal (Abdomen): Inspection/Auscultation: + abdomen distended and normal bowel sounds (Decreased) Percussion/Palpation: + abdomen tender and abdomen soft; no guarding and abdomen not rigid Neurologic: normal touch/pain/proprioception and moves all extremities; no focal motor deficits Lymphatic: no cervical or axillary lymphadenopathy Results & Data Results & Data Vital Signs (Past 12 Hours) Vital Signs Temp Pulse Pulse Resp BP BP Pulse Ox 07/28/23 12:21 87 07/28/23 11:34 36.7 C 100 H 18 143/70 H 07/28/23 08:00 99 H 07/28/23 08:00 07/28/23 07:20 86 18 97 07/28/23 07:07 91 H 07/28/23 06:40 92 H 128/75 07/28/23 03:19 36.5 C 92 H 20 128/75 99 O2 Del Method O2 Flow Rate 07/28/23 12:21 07/28/23 11:34 Room Air 07/28/23 08:00 07/28/23 08:00 Nasal Cannula 3 07/28/23 07:20 Nasal Cannula 3 07/28/23 07:07 07/28/23 06:40 07/28/23 03:19 Nasal Cannula 3 Laboratory Results Short CBC 07/28/23 Range/Units 07:01 WBC 2.71 L (4.8-10.8) K/ul Hgb 9.4 L (14.0-18.0) g/dl Hct 29.7 L (42.0-52.0) % Plt Count 186 (130-400) K/uL BMP 07/28/23 07:01 Sodium 143 Potassium 2.8 L D Chloride 108 H Carbon Dioxide 30 BUN 42 H Creatinine 0.82 Glucose 102 H Calcium 8.2 L Medications Administered Current Inpatient Medications Al Hydrox/Mg Hydrox/Simethicone (Aluminum/Magnesium Susp 30 Ml Udc) 15 ml PO Q4H PRN PRN Reason: Dyspepsia Stop: 08/24/23 12:32 Albuterol (Albut/Ipratrop 3mg/0.5mg Neb 3 Ml Vial) 3 ml NEB Q4HWA PRN; Protocol PRN Reason: Shortness Of Breath Or Wheezing Stop: 08/24/23 12:32 Atorvastatin Calcium (Atorvastatin 40 Mg Tab) 80 mg PO DAILY [facility] Stop: 08/25/23 08:59 Last Admin: 07/28/23 08:10 Dose: 80 mg Baclofen (Baclofen 10 Mg Tab) 10 mg PO Q8H PRN PRN Reason: back spasm Stop: 08/24/23 12:59 Last Admin: 07/27/23 07:48 Dose: 10 mg Budesonide (Budesonide 0.5 Mg/2 Ml Vial (Pulmicort)) 0.5 mg NEB BIDR [facility] Stop: 08/24/23 12:32 Last Admin: 07/28/23 07:20 Dose: 0.5 mg Docusate Sodium (Docusate Sodium 100 Mg Cap) 100 mg PO BID [facility] Stop: 08/24/23 20:59 Last Admin: 07/28/23 08:10 Dose: 100 mg Formoterol Fumarate (Formoterol 20 Mcg/2 Ml Vial) 20 mcg NEB BIDR [facility] Stop: 08/24/23 12:32 Last Admin: 07/28/23 07:19 Dose: 20 mcg Gabapentin (Gabapentin 300 Mg Cap) 300 mg PO TID [facility] Stop: 08/24/23 13:59 Last Admin: 07/28/23 13:33 Dose: 300 mg Guaifenesin (Guaifenesin 600 Mg Tabcr) 1,200 mg PO Q12 [facility] Stop: 08/24/23 20:59 Last Admin: 07/28/23 08:11 Dose: 1,200 mg Piperacillin Sod/Tazobactam (Sod 4.5 gm/ Dextrose) 100 mls @ 25 mls/hr IV Q8H [facility]; Protocol Stop: 08/01/23 15:59 Last Infusion: 07/28/23 12:21 Dose: Infused Sodium Chloride (Nss) 1,000 mls @ 75 mls/hr IV .[id number] [facility] Stop: 08/24/23 12:32 Last Admin: 07/28/23 08:11 Dose: 75 mls/hr Pantoprazole Sodium 40 mg/ (Dextrose) 100 mls @ 20 mls/hr IV Q5H [facility] Stop: 08/25/23 07:29 Last Admin: 07/28/23 11:55 Dose: 8 mg/hr, 20 mls/hr Digoxin 125 mcg/ Syringe 10 mls @ 2 mls/min IV DAILY@1600 [facility] Stop: 08/25/23 15:59 Last Admin: 07/27/23 15:50 Dose: 2 mls/min Heparin Sodium/Dextrose (Heparin Sodium/Dextrose) 25,000 units in 500 mls @ 18 mls/hr IV .Q24H [facility]; Protocol Stop: 08/26/23 09:44 Last Titration: 07/28/23 14:56 Dose: 950 units/hr, 19 mls/hr Metoprolol Tartrate (Metoprolol Tartrate 1 Mg/Ml Vial) 5 mg IV Q6 [facility] Stop: 08/26/23 17:59 Last Admin: 07/28/23 11:55 Dose: 5 mg Miscellaneous (Order Awaiting Action [Ursodiol 250 Mg Tablet)]) 1 each N/A QS [facility] Stop: 08/24/23 15:59 Last Admin: 07/28/23 08:03 Dose: Not Given Multivitamins (Multivitamin Tab) 1 tab PO DAILY [facility] Stop: 08/25/23 08:59 Last Admin: 07/28/23 08:10 Dose: 1 tab Ondansetron HCl (Ondansetron Inj 2 Mg/Ml 2 Ml Vial) 4 mg IV Q6H PRN PRN Reason: Nausea Stop: 08/24/23 12:32 Sodium Chloride (Sodium Chlor 7% 4 Ml Neb) 4 ml NEB BIDR [facility] Stop: 08/24/23 18:59 Last Admin: 07/28/23 07:19 Dose: 4 ml
[2023-07-28] MEDS: FUROSEMIDE INJ 20 MG/2 ML VIAL IV ONE (16:21)
[2023-07-28] MEDS: ALBUT/IPRATROP 3MG/0.5MG NEB 3 ML VIAL NEB PRN (19:59)
[2023-07-28 21:27] LABS: ANTI-Xa, UFH(UnfractionatedHep 0.42 IU/ml (0.3-0.7)
[2023-07-29 03:19] LABS: Calcium 7.3 mg/dl (8.6-10.3); Creatinine Clr Calc Pharmacy 62.1 ml/min; Est GFR (African American) 88.1 ml/min; Est GFR (Non-African American) 76.1 ml/min; Magnesium 1.6 mg/dl (1.7-2.4); Potassium 2.7 mmol/L (3.5-5.1)
[2023-07-29 03:28] LABS: Basophils # (auto) 0.04 K/uL (0.00-0.20); Basophils % (auto) 1.4 %; Dohle Bodies 1+; Eosinophils # (auto) 0.09 K/uL (0.00-0.50); Eosinophils % (auto) 3.1 %; Hematocrit (blood only) 29.4 % (42.0-52.0); Hemoglobin 9.1 g/dl (14.0-18.0); Immature Granulocytes # (auto) 0.04 K/uL (0.01-0.20); Immature Granulocytes % (auto) 1.4 %; Lymphocytes # (auto) 0.38 K/uL (1.20-3.40); Lymphocytes % (auto) 13.2 %; Mean Corpuscular Hemoglobin 29.3 pg (25.0-34.0); Mean Corpuscular Volume 94.5 fL (80.0-100.0); Mean Platelet Volume 9.5 fL (9.4-12.4); Monocytes % (auto) 20.9 %; Neutrophils # (auto) 1.72 K/uL (1.40-6.50); Platelet Count 134 K/uL (130-400); RDW Coefficient of Variation 13.8 % (11.5-14.5); RDW Standard Deviation 47.1 fL (36.4-46.3); Red Blood Count 3.11 M/uL (4.70-6.10); Toxic Granulation 2+; White Blood Count 2.87 K/ul (4.8-10.8)
[2023-07-29 03:51] LABS: ANTI-Xa, UFH(UnfractionatedHep 0.42 IU/ml (0.3-0.7); INR 1.7 (0.9-1.1); Prothrombin Time 17.7 Seconds (9.0-12.0)
[2023-07-29] MEDS ORDERED: POTASSIUM PHOS 3 MMOL/1 ML INFUSION IV STA ×2 (07:16→21:14)
[2023-07-29] MEDS: MAGNESIUM SULFATE / D5W 1 GM/100 ML BAG IV ONE (07:27)
[2023-07-29] MEDS: POTASSIUM CHLORIDE / WTR 10 MEQ/100 ML PLCT IV SCH ×2 (07:28→22:00)
[2023-07-29] MEDS: POTASSIUM PHOSPHATE 21 MMOL in SODIUM CHLORIDE 0.9% 500 ML IV ONE (07:58)
--- NOTE | 2023-07-29 09:19 | Surgery Progress Note ---
<Statement entered by Elizabeth Evans DO - 08/01/23 07:26> I have seen and examined this patient, I agree with the plan. Date of Service July 29, 2023 Assessment & Plan (1) Ileus: Plan: We have been following along for ileus Pt tolerated NGT removal yesterday Denies pain/n/v. He continues to pass flatus and BM's His abdomen is non tender. remains distended Pt w/ recent history of stroke, speech was consulted. if okay he may start on clears and slowly adv as tolerates He needs to be encouraged to get OOB and ambulate, this can only help his situation Pt never had a colonoscopy and this should be recommended as outpatient No plans for surgical intervention, following peripherally, but call if any questions/concerns. [facility] on for the wknd Admission and Anticipated Discharge Date Admission Date: July 25, 2023 Subjective Patient resting in bed. He denies abdominal complains, no pain, no nausea/vomiting. Reports + flatus and BMs. Physical Exam Physical Exam: sleepy, but arousable Respiratory: on 3L Gastrointestinal (Abdomen): Inspection/Auscultation: + abdomen distended Percussion/Palpation: abdomen soft; abdomen nontender Results & Data Vital Signs (Past 12 Hours) Vital Signs Temp Pulse Pulse Resp BP BP Pulse Ox 07/29/23 08:00 91 H 07/29/23 08:00 07/29/23 07:40 83 18 100 07/29/23 07:17 97.9 F 95 H 20 136/70 96 07/29/23 06:37 91 H 07/29/23 06:11 101 H 127/61 07/29/23 03:00 97.5 F L 101 H 18 127/61 96 07/29/23 00:31 93 H 07/28/23 23:57 105 H 130/70 07/28/23 23:00 105 H 20 130/70 97 07/28/23 22:34 105 H O2 Del Method O2 Flow Rate 07/29/23 08:00 07/29/23 08:00 Nasal Cannula 3 07/29/23 07:40 Nasal Cannula 3 07/29/23 07:17 Nasal Cannula 2.0 07/29/23 06:37 07/29/23 06:11 07/29/23 03:00 Nasal Cannula 07/29/23 00:31 07/28/23 23:57 07/28/23 23:00 Nasal Cannula 07/28/23 22:34 PG Care Time/CCT Total # of Minutes Spent Total Time Spent with Patient: Total time spent is greater than 50% in coordination of care (as documented) at patient's floor/unit and/or counseling patient: Coding Level of Care Code 13443 SUB INP/OBS CARE 04/28MIN Diagnoses Ileus K56.7
[2023-07-29] MEDS: ursodioL 300 MG CAP PO SCH (10:22)
[2023-07-29] MEDS: FUROSEMIDE INJ 20 MG/2 ML VIAL IV ONE (12:31)
--- NOTE | 2023-07-29 14:52 | XRay Report ---
XR chest 1V portable HISTORY: Shortness of breath. COMPARISON: Chest 07/27/2023. FINDINGS: Cardiac monitoring leads partially obscure the right hemithorax. Stable linear scarlike den sity at the right lung base. No new focal lung consolidations to suggest a pneumonia. No evidence for pulmonary edema. The heart is normal in size. No acute fractures. Emphysema again noted. IMPRESSION: No significant change compared to the prior study. No acute process. Emphysema again noted. ACT 112: Negative or not required by law. Electronically signed by: Wilver Roman M.D. 07/29/2023 2:51 PM
--- NOTE | 2023-07-29 16:09 | Hospitalist Progress Note ---
Date of Service July 29, 2023 Assessment & Plan (1) Shortness of breath: (2) Aspiration pneumonia: (3) Ileus: (4) Supratherapeutic INR: (5) S/P endovascular aneurysm repair: (6) Chronic hypoxic respiratory failure: (7) History of CVA (cerebrovascular accident): (8) COPD (chronic obstructive pulmonary disease): Plan This is a 73-year-old male who has significant past medical history of COPD with chronic hypoxic respiratory failure on 3 L of O2 via NC, PAF, CAD, HTN, HLD, prior right thalamic CVA, T2DM, endovascular repair of AAA in February 2021 who presents to ED secondary to shortness of breath. Acute on chronic hypoxic respiratory failure Possible aspiration pneumonia H/O COPD on 3 L of oxygen, bronchiectasis --CTA chest shows mucoid material within the trachea and right lower lobe bronchus. Pulmonary will present on right lower extremity. Advanced emphysema Has been on intravenous Zosyn, Nebulized bronchodilators Supplemental oxygen to keep saturation 88 to 92% Aspiration precautions Postoperative ileus H/O vascular surgery on July 14, 2023 Postoperative Period was complicated with ileus requiring peripheral parenteral nutrition. --CT abdomen/pelvis shows distention of year and fluid level of large and small bowel, moderate size inguinal hernia. Finding likely ileus; however close follow-up needed to exclude partial obstruction Continue bowel rest, IV fluids Continue NG tube Patient had bowel movement overnight Appreciate surgery input and recommendation Currently no indication for surgery Remains hemodynamically stable with unremarkable electrolytes Abdominal distention and GI symptoms have been improving Bowel is moved We will replace phosphate and potassium and monitor NG tube has been taken out today-will get speech evaluation tomorrow Speech evaluation will be done tomorrow Appreciate speech input and recommendation-heart healthy diet was started with minced and moist consistency Advised to take small amount of food and very multiple time Noted to be congested Crackles bibasilarly Given 20 of Lasix IV and has had enough diuresis Chest x-ray did not show any significant CHF Concern for GI bleed Endovascular leak with recent endovascular repair at [facility]. In setting of supratherapeutic INR Coumadin, Plavix are on hold Started on Protonix drip Noted to have drop in hemoglobin to 9 from 11 on of this month Melanotic stool is noted as well that was positive for blood Vitamin K 10 mg IV was given by the night doc INR dropped to 1.2 as of 07/27/2023 Discussed with the instructional facilitator and the patient started on intravenous heparin low-dose without bolus Appreciate GI evaluation and recommendation-no evidence of acute GI bleed and no need to do for any scope. If hemoglobin keeps dropping the patient will need to be transferred to [place] for endovascular leak Hemoglobin remains stable-no evidence of GI bleed A-fib RVR H/O paroxysmal A-fib Presented with supratherapeutic INR INR was reversed with vitamin K due to concern for GI bleed Check TSH Monitor and replete electrolytes as needed Received digoxin IV Lopressor as needed Cardiology on board Monitor and replete electrolytes as needed Beta-windy has been added Rate seems to be controlled and converted to sinus rhythm as of this afternoon Remains in sinus rhythm Will restart oral Coumadin from tomorrow if possible Will start Coumadin after discussion with the instructional facilitator Recent vascular surgery on July 14, 2023 Endoleak noted in CTA abdomen/pelvis Acute infarct of inferior pole of left kidney --CTA abdomen pelvis shows endoleak involving the graft, moderate-sized acute infarct of inferior pole of left kidney --ED physician discussed with vascular surgery [place]call [place] [facility]; as per the vascular surgeonthis findings were present; no interventions needs to be done Continue to monitor. Urinary retention with Yun in place Yun catheter was placed after urinary retention in post-op period Maintain Yun Trial of void after resolution of ileus. History of cardioembolic stroke Supratherapeutic INR Monitor INR Resume Plavix as able Continue statin CVA Patient developed right-sided weakness after the surgery. MRI showed cardioembolic stroke on posterior circulation Patient was placed on Coumadin and Plavix INR supratherapeutic on presentation Resume Coumadin, plavix as able PT OT evaluation Continue statin LFTs mildly elevated--consider to hold statin if LFTs worsen Chronic conditions: Hypertension Type 2 diabetes mellituscontinue on sliding scale, last a1c 5.1 on 07/18/23 Continue home medications as able DVT Px: Coumadin held--concern for GI bleed SCDs for now Started on intravenous heparin low-dose without bolus CODE STATUS Full code Admission and Anticipated Discharge Date Admission Date: July 25, 2023 Subjective 07/27/2023 The patient was seen and examined in telemetry He has been feeling shortness of breath and palpitation Denies any chest pain, abdominal discomfort but no abdominal pain. Denies nausea or vomiting 07/28/2023 The patient was seen and examined in telemetry unit He has been feeling little better today and has had bowel movement Abdomen remains distended and feels discomfort Not much drainage from the NG tube and the tube will be taken out Reverted to sinus rhythm and maintaining 07/29/2023 The patient was seen and examined in telemetry unit He has been feeling little better but remains short of breath and requiring 3 L/min to maintain saturation Denies any significant pain Abdomen remains distended but soft and bowel has been moving Review of Systems Review of Systems: All systems reviewed and are unremarkable except as noted below Physical Exam Physical Exam: Lying in bed with acute distress due to shortness of breath Constitutional: + ill appearing and average body habitus Eyes: PERRL, conjunctivae normal, anicteric sclerae ENMT: external ear and nose normal, oropharynx normal Neck: trachea midline, no thyromegaly Respiratory: + respiratory distress Auscultation: + diminished lung sounds and + crackles (Occasional crackles at the bases) Cardiovascular: Rate/Rhythm: + tachycardic and + irregularly irregular Heart Sounds: normal S1, normal S2 and + murmur Extremities: no edema Gastrointestinal (Abdomen): Inspection/Auscultation: + abdomen distended and normal bowel sounds (Decreased) Percussion/Palpation: + abdomen tender and abdomen soft; no guarding and abdomen not rigid Musculoskeletal: No acute arthritis involving any of the joint Neurologic: normal touch/pain/proprioception and moves all extremities; no focal motor deficits Lymphatic: no cervical or axillary lymphadenopathy Results & Data Results & Data Vital Signs (Past 12 Hours) Vital Signs Temp Pulse Pulse Resp BP BP Pulse Ox 07/29/23 15:28 110 H 07/29/23 15:02 113 H 07/29/23 12:14 100 H 07/29/23 11:42 98 H 07/29/23 11:00 36.9 C 102 H 24 153/77 H 95 07/29/23 08:00 91 H 07/29/23 08:00 07/29/23 07:40 83 18 100 07/29/23 07:17 36.6 C 95 H 20 136/70 96 07/29/23 06:37 91 H 07/29/23 06:11 101 H 127/61 O2 Del Method O2 Flow Rate 07/29/23 15:28 07/29/23 15:02 07/29/23 12:14 07/29/23 11:42 07/29/23 11:00 Nasal Cannula 3.0 07/29/23 08:00 07/29/23 08:00 Nasal Cannula 3 07/29/23 07:40 Nasal Cannula 3 07/29/23 07:17 Nasal Cannula 2.0 07/29/23 06:37 07/29/23 06:11 Laboratory Results Short CBC 07/29/23 Range/Units 02:38 WBC 2.87 L (4.8-10.8) K/ul Hgb 9.1 L (14.0-18.0) g/dl Hct 29.4 L (42.0-52.0) % Plt Count 134 (130-400) K/uL BMP 07/29/23 02:38 Sodium 143 Potassium 2.7 L Chloride 107 Carbon Dioxide 31 BUN 33 H Creatinine 0.97 Glucose 114 H Calcium 7.3 L Medications Administered Current Inpatient Medications Al Hydrox/Mg Hydrox/Simethicone (Aluminum/Magnesium Susp 30 Ml Udc) 15 ml PO Q4H PRN PRN Reason: Dyspepsia Stop: 08/24/23 12:32 Albuterol (Albut/Ipratrop 3mg/0.5mg Neb 3 Ml Vial) 3 ml NEB Q4HWA PRN; Protocol PRN Reason: Shortness Of Breath Or Wheezing Stop: 08/24/23 12:32 Last Admin: 07/28/23 19:59 Dose: 3 ml Atorvastatin Calcium (Atorvastatin 40 Mg Tab) 80 mg PO DAILY [facility] Stop: 08/25/23 08:59 Last Admin: 07/29/23 07:30 Dose: 80 mg Baclofen (Baclofen 10 Mg Tab) 10 mg PO Q8H PRN PRN Reason: back spasm Stop: 08/24/23 12:59 Last Admin: 07/27/23 07:48 Dose: 10 mg Budesonide (Budesonide 0.5 Mg/2 Ml Vial (Pulmicort)) 0.5 mg NEB BIDR [facility] Stop: 08/24/23 12:32 Last Admin: 07/29/23 07:36 Dose: 0.5 mg Docusate Sodium (Docusate Sodium 100 Mg Cap) 100 mg PO BID [facility] Stop: 08/24/23 20:59 Last Admin: 07/29/23 07:30 Dose: 100 mg Formoterol Fumarate (Formoterol 20 Mcg/2 Ml Vial) 20 mcg NEB BIDR [facility] Stop: 08/24/23 12:32 Last Admin: 07/29/23 07:36 Dose: 20 mcg Gabapentin (Gabapentin 300 Mg Cap) 300 mg PO TID [facility] Stop: 08/24/23 13:59 Last Admin: 07/29/23 13:38 Dose: 300 mg Guaifenesin (Guaifenesin 600 Mg Tabcr) 1,200 mg PO Q12 [facility] Stop: 08/24/23 20:59 Last Admin: 07/29/23 07:29 Dose: 1,200 mg Piperacillin Sod/Tazobactam (Sod 4.5 gm/ Dextrose) 100 mls @ 25 mls/hr IV Q8H [facility]; Protocol Stop: 08/01/23 15:59 Last Admin: 07/29/23 15:28 Dose: 25 mls/hr Pantoprazole Sodium 40 mg/ (Dextrose) 100 mls @ 20 mls/hr IV Q5H [facility] Stop: 08/25/23 07:29 Last Admin: 07/29/23 12:31 Dose: 8 mg/hr, 20 mls/hr Digoxin 125 mcg/ Syringe 10 mls @ 2 mls/min IV DAILY@1600 [facility] Stop: 08/25/23 15:59 Last Admin: 07/29/23 15:28 Dose: 2 mls/min Heparin Sodium/Dextrose (Heparin Sodium/Dextrose) 25,000 units in 500 mls @ 19 mls/hr IV .Q24H [facility]; Protocol Stop: 08/26/23 09:44 Last Admin: 07/29/23 10:21 Dose: 950 units/hr, 19 mls/hr Metoprolol Tartrate (Metoprolol Tartrate 1 Mg/Ml Vial) 5 mg IV Q6 [facility] Stop: 08/26/23 17:59 Last Admin: 07/29/23 11:42 Dose: 5 mg Multivitamins (Multivitamin Tab) 1 tab PO DAILY [facility] Stop: 08/25/23 08:59 Last Admin: 07/29/23 10:21 Dose: 1 tab Ondansetron HCl (Ondansetron Inj 2 Mg/Ml 2 Ml Vial) 4 mg IV Q6H PRN PRN Reason: Nausea Stop: 08/24/23 12:32 Sodium Chloride (Sodium Chlor 7% 4 Ml Neb) 4 ml NEB BIDR [facility] Stop: 08/24/23 18:59 Last Admin: 07/29/23 07:36 Dose: 4 ml Ursodiol (Ursodiol 300 Mg Cap) 300 mg PO BID [facility] Stop: 08/28/23 08:59 Last Admin: 07/29/23 10:22 Dose: 300 mg
--- NOTE | 2023-07-29 18:30 | Communication Note ---
Date of Service: July 29, 2023 Telemetry reviewed. Recurrent atrial fibrillation noted on 07/29/23 from 3:55-4:15 am, then converted back to SR. Once Tolerating diet can resume coumadin with heparin bridge and metoprolol tartrate 25 mg BID or 50 mg BID. IV digoxin discontinued since BP improved, as would favor titrate metoprolol if tolerated. Jeramy Salas DO
[2023-07-29 20:52] LABS: Base Excess ABG 3.2 mEq/L (-9-1.8); HCO3 ABG 31 mmol/L (19-24); PCO2 ABG 62 mmHg (35-46); PO2 ABG 118 mmHg (80-95); pH ABG 7.31 (7.35-7.45)
[2023-07-29 21:06] LABS: Allen Test Pos (Pos)
[2023-07-29] MEDS ORDERED: methylPREDNISolone 125 MG/2 ML VIAL IV STA (21:08)
[2023-07-29 21:12] LABS: BUN Creatinine Ratio 27.7 (10-20); Calcium 7.3 mg/dl (8.6-10.3); Creatinine Clr Calc Pharmacy 59.7 ml/min; Est GFR (African American) 83.9 ml/min; Est GFR (Non-African American) 72.4 ml/min; Magnesium 1.6 mg/dl (1.7-2.4); Phosphorus 2.1 mg/dl (2.5-4.9); Potassium 2.8 mmol/L (3.5-5.1)
[2023-07-29] MEDS: POTASSIUM CHLORIDE CRTAB 20 MEQ TABCR PO STA (21:59)
[2023-07-29] MEDS: MAGNESIUM SULFATE / D5W 1 GM/100 ML BAG IV SCH (22:00)
[2023-07-29] MEDS: methylPREDNISolone 60 MG in SYRINGE 0 ML IV STA (22:01)
[2023-07-29] MEDS ORDERED: LEVALBUTEROL 1.25MG/0.5ML NEB NEB PRN (23:16)
[2023-07-30] MEDS: POTASSIUM PHOSPHATE 21 MMOL in SODIUM CHLORIDE 0.9% 500 ML IV ONE (02:32)
[2023-07-30 06:38] LABS: Hematocrit (blood only) 29.4 % (42.0-52.0); Hemoglobin 9.2 g/dl (14.0-18.0); Mean Corpuscular Hemoglobin 29.6 pg (25.0-34.0); Mean Corpuscular Hgb Conc 31.3 g/dL (32.0-36.0); Mean Corpuscular Volume 94.5 fL (80.0-100.0); Mean Platelet Volume 9.8 fL (9.4-12.4); Platelet Count 113 K/uL (130-400); RDW Standard Deviation 48.7 fL (36.4-46.3); Red Blood Count 3.11 M/uL (4.70-6.10); White Blood Count 5.77 K/ul (4.8-10.8)
[2023-07-30 06:44] LABS: ANTI-Xa, UFH(UnfractionatedHep 0.59 IU/ml (0.3-0.7)
[2023-07-30] MEDS ORDERED: ALBUT/IPRATROP 3MG/0.5MG NEB 3 ML VIAL NEB SCH (07:00)
[2023-07-30 07:06] LABS: BUN Creatinine Ratio 28.3 (10-20); Calcium 7.1 mg/dl (8.6-10.3); Est GFR (Non-African American) 74.2 ml/min; Phosphorus 4.1 mg/dl (2.5-4.9); Potassium 3.7 mmol/L (3.5-5.1)
[2023-07-30 07:09] LABS: Basophils # (auto) 0.06 K/uL (0.00-0.20); Immature Granulocytes # (auto) 0.16 K/uL (0.01-0.20); Immature Granulocytes % (auto) 2.8 %; Lymphocytes # (auto) 0.24 K/uL (1.20-3.40); Lymphocytes % (auto) 4.2 %; Monocytes # (auto) 0.37 K/uL (0.11-0.59); Monocytes % (auto) 6.4 %; Neutrophils # (auto) 4.94 K/uL (1.40-6.50); Neutrophils % (auto) 85.6 %; Polychromasia 1+; Toxic Granulation 1+
[2023-07-30 07:47] LABS: Base Excess ABG 2.4 mEq/L (-9-1.8); HCO3 ABG 31 mmol/L (19-24); Oxygen Saturation ABG 97.6 % (90-95); PCO2 ABG 66 mmHg (35-46); PO2 ABG 87 mmHg (80-95); pH ABG 7.28 (7.35-7.45)
[2023-07-30] MEDS: methylPREDNISolone 40 MG in SYRINGE 0 ML IV SCH (07:55)
[2023-07-30 07:56] LABS: Allen Test Pos (Pos)
[2023-07-30] MEDS ORDERED: methylPREDNISolone 125 MG/2 ML VIAL IV SCH (09:00)
[2023-07-30] MEDS ORDERED: LEVALBUTEROL 1.25MG/0.5ML NEB NEB PRN (09:00)
[2023-07-30] MEDS: METOPROLOL TARTRATE 25 MG TAB PO SCH (10:28)
[2023-07-30] MEDS: PANTOprazole 40 MG TAB PO SCH (10:28)
[2023-07-30] MEDS: WARFARIN SOD 5 MG TAB PO SCH (15:14)
--- NOTE | 2023-07-30 15:36 | Hospitalist Progress Note ---
Date of Service July 30, 2023 Assessment & Plan (1) Shortness of breath: (2) Aspiration pneumonia: (3) Ileus: (4) Supratherapeutic INR: (5) S/P endovascular aneurysm repair: (6) Chronic hypoxic respiratory failure: (7) History of CVA (cerebrovascular accident): (8) COPD (chronic obstructive pulmonary disease): Plan This is a 73-year-old male who has significant past medical history of COPD with chronic hypoxic respiratory failure on 3 L of O2 via NC, PAF, CAD, HTN, HLD, prior right thalamic CVA, T2DM, endovascular repair of AAA in February 2021 who presents to ED secondary to shortness of breath. Acute on chronic hypoxic respiratory failure Possible aspiration pneumonia H/O COPD on 3 L of oxygen, bronchiectasis --CTA chest shows mucoid material within the trachea and right lower lobe bronchus. Pulmonary will present on right lower extremity. Advanced emphysema Has been on intravenous Zosyn, Nebulized bronchodilators Supplemental oxygen to keep saturation 88 to 92% Aspiration precautions Has been started 1 intravenous methylprednisone since last night Has been tolerating BiPAP Clinically better and will continue steroid for now Postoperative ileus H/O vascular surgery on July 14, 2023 Postoperative Period was complicated with ileus requiring peripheral parenteral nutrition. --CT abdomen/pelvis shows distention of year and fluid level of large and small bowel, moderate size inguinal hernia. Finding likely ileus; however close follow-up needed to exclude partial obstruction Continue bowel rest, IV fluids Continue NG tube Patient had bowel movement overnight Appreciate surgery input and recommendation Currently no indication for surgery Remains hemodynamically stable with unremarkable electrolytes Abdominal distention and GI symptoms have been improving Bowel is moved We will replace phosphate and potassium and monitor NG tube has been taken out today-will get speech evaluation tomorrow Speech evaluation will be done tomorrow Appreciate speech input and recommendation-heart healthy diet was started with minced and moist consistency Advised to take small amount of food and very multiple time Abdomen remains distended but has been moving bowel with good bowel sound Tolerating diet reasonably Noted to be congested Crackles bibasilarly Given 20 of Lasix IV and has had enough diuresis Chest x-ray did not show any significant CHF Concern for GI bleed Endovascular leak with recent endovascular repair at [facility]. In setting of supratherapeutic INR Coumadin, Plavix are on hold Started on Protonix drip Noted to have drop in hemoglobin to 9 from 11 on of this month Melanotic stool is noted as well that was positive for blood Vitamin K 10 mg IV was given by the night doc INR dropped to 1.2 as of 07/27/2023 Discussed with the mitochondrial disorders counselor and the patient started on intravenous heparin low-dose without bolus Appreciate GI evaluation and recommendation-no evidence of acute GI bleed and no need to do for any scope. If hemoglobin keeps dropping the patient will need to be transferred to [place] for endovascular leak Hemoglobin remains stable-no evidence of GI bleed No more evidence of GI bleed A-fib RVR H/O paroxysmal A-fib Presented with supratherapeutic INR INR was reversed with vitamin K due to concern for GI bleed Check TSH Monitor and replete electrolytes as needed Received digoxin IV Lopressor as needed Cardiology on board Monitor and replete electrolytes as needed Beta-windy has been added Rate seems to be controlled and converted to sinus rhythm as of this afternoon Remains in sinus rhythm Will restart oral Coumadin from tomorrow if possible Will start Coumadin after discussion with the mitochondrial disorders counselor Coumadin will be started from today Recent vascular surgery on July 14, 2023 Endoleak noted in CTA abdomen/pelvis Acute infarct of inferior pole of left kidney --CTA abdomen pelvis shows endoleak involving the graft, moderate-sized acute infarct of inferior pole of left kidney --ED physician discussed with vascular surgery on[place]call at [facility] [place]; as per the vascular surgeonthis findings were present; no interventions needs to be done Continue to monitor. Urinary retention with Yun in place Yun catheter was placed after urinary retention in post-op period Maintain Yun Trial of void after resolution of ileus. History of cardioembolic stroke Supratherapeutic INR Monitor INR Resume Plavix as able Continue statin CVA Patient developed right-sided weakness after the surgery. MRI showed cardioembolic stroke on posterior circulation Patient was placed on Coumadin and Plavix INR supratherapeutic on presentation Resume Coumadin, plavix as able PT OT evaluation Continue statin LFTs mildly elevated--consider to hold statin if LFTs worsen Chronic conditions: Hypertension Type 2 diabetes mellituscontinue on sliding scale, last a1c 5.1 on 07/18/23 Continue home medications as able DVT Px: Coumadin held--concern for GI bleed SCDs for now Started on intravenous heparin low-dose without bolus CODE STATUS Full code Admission and Anticipated Discharge Date Admission Date: July 25, 2023 Subjective 07/27/2023 The patient was seen and examined in telemetry He has been feeling shortness of breath and palpitation Denies any chest pain, abdominal discomfort but no abdominal pain. Denies nausea or vomiting 07/28/2023 The patient was seen and examined in telemetry unit He has been feeling little better today and has had bowel movement Abdomen remains distended and feels discomfort Not much drainage from the NG tube and the tube will be taken out Reverted to sinus rhythm and maintaining 07/29/2023 The patient was seen and examined in telemetry unit He has been feeling little better but remains short of breath and requiring 3 L/min to maintain saturation Denies any significant pain Abdomen remains distended but soft and bowel has been moving 07/30/2023 The patient was seen and examined in telemetry unit He has been feeling a little better today Has been eating reasonably Has shortness of breath last night and steroid has been ordered Clinically better this morning Review of Systems Review of Systems: All systems reviewed and are unremarkable except as noted below Physical Exam Physical Exam: Lying in bed with acute distress due to shortness of breath Constitutional: + ill appearing and average body habitus Eyes: PERRL, conjunctivae normal, anicteric sclerae ENMT: external ear and nose normal, oropharynx normal Neck: trachea midline, no thyromegaly Respiratory: + respiratory distress Auscultation: + diminished lung sounds and + crackles (Occasional crackles at the bases) Cardiovascular: Rate/Rhythm: + tachycardic and + irregularly irregular Heart Sounds: normal S1, normal S2 and + murmur Extremities: no edema Gastrointestinal (Abdomen): Inspection/Auscultation: + abdomen distended and normal bowel sounds (Decreased) Percussion/Palpation: + abdomen tender and abdomen soft; no guarding and abdomen not rigid Musculoskeletal: No acute arthritis involving any of the joint Neurologic: normal touch/pain/proprioception and moves all extremities; no focal motor deficits Lymphatic: no cervical or axillary lymphadenopathy Results & Data Results & Data Vital Signs (Past 12 Hours) Vital Signs Temp Pulse Pulse Resp BP BP Pulse Ox 07/30/23 12:18 36.4 C L 95 H 20 139/74 96 07/30/23 08:03 36.5 C 92 H 22 143/67 H 97 04/27/24 08:00 82 07/30/23 08:00 07/30/23 07:21 78 18 98 07/30/23 06:09 82 126/64 07/30/23 05:45 97 H 142/69 H O2 Del Method O2 Flow Rate 07/30/23 12:18 Nasal Cannula 2 07/30/23 08:03 Nebulizer 3 07/30/23 08:00 07/30/23 08:00 Nasal Cannula 3 07/30/23 07:21 Nasal Cannula 3 07/30/23 06:09 07/30/23 05:45 Laboratory Results Short CBC 07/30/23 Range/Units 05:45 WBC 5.77 (4.8-10.8) K/ul Hgb 9.2 L (14.0-18.0) g/dl Hct 29.4 L (42.0-52.0) % Plt Count 113 L (130-400) K/uL BMP 07/29/23 07/30/23 20:42 05:45 Sodium 143 142 Potassium 2.8 L 3.7 D Chloride 106 106 Carbon Dioxide 31 31 BUN 28 H 28 H Creatinine 1.01 0.99 Glucose 140 H 183 H Calcium 7.3 L 7.1 L Medications Administered Current Inpatient Medications Al Hydrox/Mg Hydrox/Simethicone (Aluminum/Magnesium Susp 30 Ml Udc) 15 ml PO Q4H PRN PRN Reason: Dyspepsia Stop: 08/24/23 12:32 Atorvastatin Calcium (Atorvastatin 40 Mg Tab) 80 mg PO DAILY [facility] Stop: 08/25/23 08:59 Last Admin: 07/30/23 07:56 Dose: 80 mg Baclofen (Baclofen 10 Mg Tab) 10 mg PO Q8H PRN PRN Reason: back spasm Stop: 08/24/23 12:59 Last Admin: 07/27/23 07:48 Dose: 10 mg Budesonide (Budesonide 0.5 Mg/2 Ml Vial (Pulmicort)) 0.5 mg NEB BIDR [facility] Stop: 08/24/23 12:32 Last Admin: 07/30/23 07:17 Dose: 0.5 mg Docusate Sodium (Docusate Sodium 100 Mg Cap) 100 mg PO BID [facility] Stop: 08/24/23 20:59 Last Admin: 07/30/23 07:57 Dose: 100 mg Formoterol Fumarate (Formoterol 20 Mcg/2 Ml Vial) 20 mcg NEB BIDR [facility] Stop: 08/24/23 12:32 Last Admin: 07/30/23 07:17 Dose: 20 mcg Gabapentin (Gabapentin 300 Mg Cap) 300 mg PO TID [facility] Stop: 08/24/23 13:59 Last Admin: 07/30/23 15:14 Dose: 300 mg Guaifenesin (Guaifenesin 600 Mg Tabcr) 1,200 mg PO Q12 PLACIDO Stop: 08/24/23 20:59 Last Admin: 07/30/23 07:55 Dose: 1,200 mg Piperacillin Sod/Tazobactam (Sod 4.5 gm/ Dextrose) 100 mls @ 25 mls/hr IV Q8H [facility]; Protocol Stop: 08/01/23 15:59 Last Admin: 07/30/23 15:14 Dose: 25 mls/hr Heparin Sodium/Dextrose (Heparin Sodium/Dextrose) 25,000 units in 500 mls @ 19 mls/hr IV .Q24H [facility]; Protocol Stop: 08/26/23 09:44 Last Admin: 07/30/23 10:27 Dose: 950 units/hr, 19 mls/hr Methylprednisolone 40 mg/ (Syringe) 0.64 mls @ 1.5 mls/min IV BID [facility] Stop: 08/29/23 08:59 Last Admin: 07/30/23 07:55 Dose: 1.5 mls/min Levalbuterol HCl (Levalbuterol 1.25mg/0.5ml Neb) 1.25 mg NEB Q4R PRN; Protocol PRN Reason: Shortness Of Breath Or Wheezin Stop: 08/28/23 23:15 Metoprolol Tartrate (Metoprolol Tartrate 25 Mg Tab) 25 mg PO BID [facility] Stop: 08/29/23 08:59 Last Admin: 07/30/23 10:28 Dose: 25 mg Multivitamins (Multivitamin Tab) 1 tab PO DAILY [facility] Stop: 08/25/23 08:59 Last Admin: 07/30/23 07:55 Dose: 1 tab Ondansetron HCl (Ondansetron Inj 2 Mg/Ml 2 Ml Vial) 4 mg IV Q6H PRN PRN Reason: Nausea Stop: 08/24/23 12:32 Pantoprazole Sodium (Pantoprazole 40 Mg Tab) 40 mg PO QAM [facility] Stop: 08/29/23 08:59 Last Admin: 07/30/23 10:28 Dose: 40 mg Sodium Chloride (Sodium Chlor 7% 4 Ml Neb) 4 ml NEB BIDR [facility] Stop: 08/24/23 18:59 Last Admin: 07/30/23 07:17 Dose: 4 ml Ursodiol (Ursodiol 300 Mg Cap) 300 mg PO BID [facility] Stop: 08/28/23 08:59 Last Admin: 07/30/23 07:54 Dose: 300 mg Warfarin Sodium (Warfarin Sod 5 Mg Tab) 5 mg PO DAILY@1600 [facility] Stop: 08/29/23 15:59 Last Admin: 07/30/23 15:14 Dose: 5 mg
--- NOTE | 2023-07-30 20:10 | Communication Note ---
Date of Service: July 30, 2023 Telemetry reviewed: Predominant rhythm sinus rhythm with occasional premature atrial contractions premature ventricular contractions, rate mostly in the 90s. There was a recurrent episode of atrial fibrillation noted 07/29/20232238, and converted to sinus rhythm on 07/30/2023 at 12:11 AM. I agree with continuing Toprol tartrate 25 mg twice daily, titrate as necessary. Patient remains anticoagulated with heparin.
[2023-07-31 06:37] LABS: ANTI-Xa, UFH(UnfractionatedHep 0.75 IU/ml (0.3-0.7)
[2023-07-31 06:52] LABS: BUN Creatinine Ratio 29.8 (10-20); Calcium 7.1 mg/dl (8.6-10.3); Creatinine Clr Calc Pharmacy 55.2 ml/min; Est GFR (African American) 72.5 ml/min; Est GFR (Non-African American) 62.6 ml/min; Magnesium 1.9 mg/dl (1.7-2.4); Phosphorus 1.8 mg/dl (2.5-4.9); Potassium 2.5 mmol/L (3.5-5.1)
[2023-07-31] MEDS ORDERED: POTASSIUM PHOS 3 MMOL/1 ML INFUSION IV STA (06:53)
[2023-07-31] MEDS: POTASSIUM PHOSPHATE 30 MMOL in SODIUM CHLORIDE 0.9% 500 ML IV ONE (07:26)
[2023-07-31] MEDS: POTASSIUM CHLORIDE / WTR 10 MEQ/100 ML PLCT IV SCH (07:26)
[2023-07-31] MEDS: POTASSIUM CHLORIDE CRTAB 20 MEQ TABCR PO STA (07:27)
--- NOTE | 2023-07-31 08:29 | Communication Note ---
Date of Service: July 31, 2023 Telemetry reviewed, sinus rhythm with rates ranging in the 70s to 80s noted overnight last night and thus far today. J Maritza, DO Cardiology
--- NOTE | 2023-07-31 11:26 | Hospitalist Progress Note ---
Date of Service July 31, 2023 Assessment & Plan (1) Shortness of breath: (2) Aspiration pneumonia: (3) Ileus: (4) Supratherapeutic INR: (5) S/P endovascular aneurysm repair: (6) Chronic hypoxic respiratory failure: (7) History of CVA (cerebrovascular accident): (8) COPD (chronic obstructive pulmonary disease): Plan This is a 73-year-old male who has significant past medical history of COPD with chronic hypoxic respiratory failure on 3 L of O2 via NC, PAF, CAD, HTN, HLD, prior right thalamic CVA, T2DM, endovascular repair of AAA in February 2021 who presents to ED secondary to shortness of breath. Acute on chronic hypoxic respiratory failure Possible aspiration pneumonia H/O COPD on 3 L of oxygen, bronchiectasis --CTA chest shows mucoid material within the trachea and right lower lobe bronchus. Pulmonary will present on right lower extremity. Advanced emphysema Has been on intravenous Zosyn, Nebulized bronchodilators Supplemental oxygen to keep saturation 88 to 92% Aspiration precautions Has been started 1 intravenous methylprednisone since last night Has been tolerating BiPAP Clinically better and will continue steroid for now Strongly advised to use CPAP especially at nighttime Has been feeling better with Solu-Medrol Will need to have more physical therapy Postoperative ileus H/O vascular surgery on July 14, 2023 Postoperative Period was complicated with ileus requiring peripheral parenteral nutrition. --CT abdomen/pelvis shows distention of year and fluid level of large and small bowel, moderate size inguinal hernia. Finding likely ileus; however close follow-up needed to exclude partial obstruction Continue bowel rest, IV fluids Continue NG tube Patient had bowel movement overnight Appreciate surgery input and recommendation Currently no indication for surgery Remains hemodynamically stable with unremarkable electrolytes Abdominal distention and GI symptoms have been improving Bowel is moved We will replace phosphate and potassium and monitor NG tube has been taken out today-will get speech evaluation tomorrow Speech evaluation will be done tomorrow Appreciate speech input and recommendation-heart healthy diet was started with minced and moist consistency Advised to take small amount of food and very multiple time Abdomen remains distended but has been moving bowel with good bowel sound Tolerating diet reasonably Will advise boost Noted to be congested Crackles bibasilarly Given 20 of Lasix IV and has had enough diuresis Chest x-ray did not show any significant CHF Concern for GI bleed Endovascular leak with recent endovascular repair at [facility]. In setting of supratherapeutic INR Coumadin, Plavix are on hold Started on Protonix drip Noted to have drop in hemoglobin to 9 from 11 on of this month Melanotic stool is noted as well that was positive for blood Vitamin K 10 mg IV was given by the night doc INR dropped to 1.2 as of 07/27/2023 Discussed with the industrial servicer and the patient started on intravenous heparin low-dose without bolus Appreciate GI evaluation and recommendation-no evidence of acute GI bleed and no need to do for any scope. If hemoglobin keeps dropping the patient will need to be transferred to [place] for endovascular leak Hemoglobin remains stable-no evidence of GI bleed No more evidence of GI bleed A-fib RVR H/O paroxysmal A-fib Presented with supratherapeutic INR INR was reversed with vitamin K due to concern for GI bleed Check TSH Monitor and replete electrolytes as needed Received digoxin IV Lopressor as needed Cardiology on board Monitor and replete electrolytes as needed Beta-windy has been added Rate seems to be controlled and converted to sinus rhythm as of this afternoon Remains in sinus rhythm Will restart oral Coumadin from tomorrow if possible Will start Coumadin after discussion with the industrial servicer Coumadin has been started Recent vascular surgery on July 14, 2023 Endoleak noted in CTA abdomen/pelvis Acute infarct of inferior pole of left kidney --CTA abdomen pelvis shows endoleak involving the graft, moderate-sized acute infarct of inferior pole of left kidney --ED physician discussed with vascular surgery on-call at [facility] [place] on admission; as per the vascular surgeonthis findings were present; no interventions needs to b e done Continue to monitor. Urinary retention with Yun in place Yun catheter was placed after urinary retention in post-op period Maintain Yun Trial of void after resolution of ileus. History of cardioembolic stroke Supratherapeutic INR Monitor INR Resume Plavix as able Continue statin CVA Patient developed right-sided weakness after the surgery. MRI showed cardioembolic stroke on posterior circulation Patient was placed on Coumadin and Plavix INR supratherapeutic on presentation Resume Coumadin, plavix as able PT OT evaluation Continue statin LFTs mildly elevated--consider to hold statin if LFTs worsen Chronic conditions: Hypertension Type 2 diabetes mellituscontinue on sliding scale, last a1c 5.1 on 07/18/23 Continue home medications as able DVT Px: Coumadin held--concern for GI bleed SCDs for now Started on intravenous heparin low-dose without bolus CODE STATUS Full code Admission and Anticipated Discharge Date Admission Date: July 25, 2023 Subjective 07/27/2023 The patient was seen and examined in telemetry He has been feeling shortness of breath and palpitation Denies any chest pain, abdominal discomfort but no abdominal pain. Denies nausea or vomiting 07/28/2023 The patient was seen and examined in telemetry unit He has been feeling little better today and has had bowel movement Abdomen remains distended and feels discomfort Not much drainage from the NG tube and the tube will be taken out Reverted to sinus rhythm and maintaining 07/29/2023 The patient was seen and examined in telemetry unit He has been feeling little better but remains short of breath and requiring 3 L/min to maintain saturation Denies any significant pain Abdomen remains distended but soft and bowel has been moving 07/30/2023 The patient was seen and examined in telemetry unit He has been feeling a little better today Has been eating reasonably Has shortness of breath last night and steroid has been ordered Clinically better this morning 07/31/2023 The patient was seen and examined in telemetry unit He weird CPAP whole night and has been feeling better this Has been on Solu-Medrol for possible COPD exacerbation Denies any significant symptoms and has been eating reasonably Will get PT and OT evaluate Review of Systems Review of Systems: All systems reviewed and are unremarkable except as noted below Physical Exam Physical Exam: Lying in bed with acute distress due to shortness of breath Constitutional: + ill appearing and average body habitus Eyes: PERRL, conjunctivae normal, anicteric sclerae ENMT: external ear and nose normal, oropharynx normal Neck: trachea midline, no thyromegaly Respiratory: + respiratory distress Auscultation: + diminished lung sounds and + crackles (Occasional crackles at the bases) Cardiovascular: Rate/Rhythm: + tachycardic and + irregularly irregular Heart Sounds: normal S1, normal S2 and + murmur Extremities: no edema Gastrointestinal (Abdomen): Inspection/Auscultation: + abdomen distended and normal bowel sounds (Decreased) Percussion/Palpation: + abdomen tender and abdomen soft; no guarding and abdomen not rigid Musculoskeletal: No acute arthritis involving any of the joint Neurologic: normal touch/pain/proprioception and moves all extremities; no focal motor deficits Lymphatic: no cervical or axillary lymphadenopathy Results & Data Results & Data Vital Signs (Past 12 Hours) Vital Signs Temp Pulse Pulse Resp BP Pulse Ox O2 Del Method 07/31/23 08:00 78 07/31/23 08:00 Nasal Cannula 07/31/23 07:48 36.6 C 83 20 138/68 96 Nasal Cannula 07/31/23 07:08 70 20 96 BiPAP 07/31/23 07:04 70 20 96 07/31/23 03:06 88 21 98 07/31/23 03:00 36.7 C 79 21 106/62 96 BiPAP O2 Flow Rate FiO2 07/31/23 08:00 07/31/23 08:00 3 07/31/23 07:48 3 07/31/23 07:08 40 07/31/23 07:04 40 07/31/23 03:06 40 07/31/23 03:00 Laboratory Results BMP 07/31/23 06:03 Sodium 141 Potassium 2.5 L* D Chloride 105 Carbon Dioxide 30 BUN 34 H Creatinine 1.14 Glucose 230 H Calcium 7.1 L Medications Administered Current Inpatient Medications Al Hydrox/Mg Hydrox/Simethicone (Aluminum/Magnesium Susp 30 Ml Udc) 15 ml PO Q4H PRN PRN Reason: Dyspepsia Stop: 08/24/23 12:32 Atorvastatin Calcium (Atorvastatin 40 Mg Tab) 80 mg PO DAILY [facility] Stop: 08/25/23 08:59 Last Admin: 07/31/23 07:29 Dose: 80 mg Baclofen (Baclofen 10 Mg Tab) 10 mg PO Q8H PRN PRN Reason: back spasm Stop: 08/24/23 12:59 Last Admin: 07/27/23 07:48 Dose: 10 mg Budesonide (Budesonide 0.5 Mg/2 Ml Vial (Pulmicort)) 0.5 mg NEB BIDR [facility] Stop: 08/24/23 12:32 Last Admin: 07/31/23 07:02 Dose: 0.5 mg Docusate Sodium (Docusate Sodium 100 Mg Cap) 100 mg PO BID [facility] Stop: 08/24/23 20:59 Last Admin: 07/31/23 07:27 Dose: 100 mg Formoterol Fumarate (Formoterol 20 Mcg/2 Ml Vial) 20 mcg NEB BIDR [facility] Stop: 08/24/23 12:32 Last Admin: 07/31/23 07:02 Dose: 20 mcg Gabapentin (Gabapentin 300 Mg Cap) 300 mg PO TID [facility] Stop: 08/24/23 13:59 Last Admin: 07/31/23 07:29 Dose: 300 mg Guaifenesin (Guaifenesin 600 Mg Tabcr) 1,200 mg PO Q12 PLACIDO Stop: 08/24/23 20:59 Last Admin: 07/31/23 07:28 Dose: 1,200 mg Piperacillin Sod/Tazobactam (Sod 4.5 gm/ Dextrose) 100 mls @ 25 mls/hr IV Q8H [facility]; Protocol Stop: 08/01/23 15:59 Last Admin: 07/31/23 07:27 Dose: 25 mls/hr Heparin Sodium/Dextrose (Heparin Sodium/Dextrose) 25,000 units in 500 mls @ 18 mls/hr IV .Q24H [facility]; Protocol Stop: 08/26/23 09:44 Last Admin: 07/31/23 11:07 Dose: 900 units/hr, 18 mls/hr Methylprednisolone 40 mg/ (Syringe) 0.64 mls @ 1.5 mls/min IV BID [facility] Stop: 08/29/23 08:59 Last Admin: 07/31/23 07:27 Dose: 1.5 mls/min Potassium Phosphate 30 mmol/ (Sodium Chloride) 510 mls @ 102 mls/hr IV ONE ONE Stop: 07/31/23 12:14 Last Admin: 07/31/23 07:26 Dose: 102 mls/hr Levalbuterol HCl (Levalbuterol 1.25mg/0.5ml Neb) 1.25 mg NEB Q4R PRN; Protocol PRN Reason: Shortness Of Breath Or Wheezin Stop: 08/28/23 23:15 Metoprolol Tartrate (Metoprolol Tartrate 25 Mg Tab) 25 mg PO BID [facility] Stop: 08/29/23 08:59 Last Admin: 07/31/23 07:28 Dose: 25 mg Multivitamins (Multivitamin Tab) 1 tab PO DAILY [facility] Stop: 08/25/23 08:59 Last Admin: 07/31/23 07:28 Dose: 1 tab Ondansetron HCl (Ondansetron Inj 2 Mg/Ml 2 Ml Vial) 4 mg IV Q6H PRN PRN Reason: Nausea Stop: 08/24/23 12:32 Pantoprazole Sodium (Pantoprazole 40 Mg Tab) 40 mg PO QAM [facility] Stop: 08/29/23 08:59 Last Admin: 07/31/23 07:28 Dose: 40 mg Sodium Chloride (Sodium Chlor 7% 4 Ml Neb) 4 ml NEB BIDR [facility] Stop: 08/24/23 18:59 Last Admin: 07/31/23 07:02 Dose: 4 ml Ursodiol (Ursodiol 300 Mg Cap) 300 mg PO BID [facility] Stop: 08/28/23 08:59 Last Admin: 07/31/23 07:29 Dose: 300 mg Warfarin Sodium (Warfarin Sod 5 Mg Tab) 5 mg PO DAILY@1600 [facility] Stop: 08/29/23 15:59 Last Admin: 07/30/23 15:14 Dose: 5 mg
[2023-07-31 13:35] LABS: ANTI-Xa, UFH(UnfractionatedHep 0.92 IU/ml (0.3-0.7)
[2023-07-31] MEDS: THIAMINE HCL 100 MG TAB PO SCH (15:48)
[2023-07-31 19:41] LABS: ANTI-Xa, UFH(UnfractionatedHep 0.64 IU/ml (0.3-0.7)
[2023-07-31] MEDS: METOPROLOL TARTRATE 1 MG/ML VIAL IV STA (23:32)
[2023-08-01 00:20] LABS: Magnesium 1.8 mg/dl (1.7-2.4); Phosphorus 2.6 mg/dl (2.5-4.9)
[2023-08-01] MEDS: POTASSIUM CHLORIDE CRTAB 20 MEQ TABCR PO STA (01:05)
[2023-08-01] MEDS: POTASSIUM CHLORIDE / WTR 10 MEQ/100 ML PLCT IV SCH (01:06)
[2023-08-01] MEDS: MAGNESIUM SULFATE / D5W 1 GM/100 ML BAG IV ONE (01:06)
[2023-08-01 06:35] LABS: Hemoglobin 9.7 g/dl (14.0-18.0); Mean Corpuscular Hemoglobin 29.7 pg (25.0-34.0); Mean Corpuscular Hgb Conc 32.3 g/dL (32.0-36.0); Mean Corpuscular Volume 91.7 fL (80.0-100.0); Mean Platelet Volume 10.1 fL (9.4-12.4); Platelet Count 115 K/uL (130-400); RDW Standard Deviation 47.6 fL (36.4-46.3); Red Blood Count 3.27 M/uL (4.70-6.10); White Blood Count 14.96 K/ul (4.8-10.8)
[2023-08-01] MEDS: ALUMINUM/MAGNESIUM SUSP 30 ML UDC PO PRN (06:40)
[2023-08-01 06:49] LABS: BUN Creatinine Ratio 27.7 (10-20); Calcium 7.5 mg/dl (8.6-10.3); Est GFR (African American) 68.8 ml/min; Est GFR (Non-African American) 59.4 ml/min; Phosphorus 2.5 mg/dl (2.5-4.9); Potassium 3.9 mmol/L (3.5-5.1)
[2023-08-01 06:53] LABS: Basophils # (auto) 0.06 K/uL (0.00-0.20); Basophils % (auto) 0.4 %; Dohle Bodies 1+; Immature Granulocytes % (auto) 1.3 %; Lymphocytes # (auto) 0.49 K/uL (1.20-3.40); Lymphocytes % (auto) 3.3 %; Monocytes % (auto) 7.4 %; Neutrophils # (auto) 13.11 K/uL (1.40-6.50); Neutrophils % (auto) 87.6 %; Toxic Granulation 3+
[2023-08-01 06:54] LABS: ANTI-Xa, UFH(UnfractionatedHep 0.29 IU/ml (0.3-0.7); Prothrombin Time 64.9 Seconds (9.0-12.0)
[2023-08-01] MEDS: FUROSEMIDE INJ 20 MG/2 ML VIAL IV ONE (08:36)
[2023-08-01] MEDS: DIGOXIN 125 MCG in SYRINGE 9.5 ML IV STA (08:36)
[2023-08-01 08:53] LABS: INR 6.7 (0.9-1.1)
--- NOTE | 2023-08-01 12:44 | XRay Report ---
KUB HISTORY: Status post placement of an enteric tube ngt placement COMPARISON: 07/27/2023 FINDINGS: Distal tip of enteric tube projects over the expected location of the gastric body. Cardiom egaly. Gaseous distended loops of large and small bowel redemonstrated. Lower abdomen is excluded fro m the [id number]. Previously described bowel filled left inguinal hernia is not imaged. Aortobiili ac stent graft is noted along with bilateral renal arterial stents. Apparent embolization coils proje ct over the right abdomen. No renal calculi. No ureteral calculi. No pneumoperitoneum or pneumatosis. No fracture. IMPRESSION: 1. Similar appearance of the gaseous distended large and small bowel loops suggestive of ileus versus distal obstruction. Follow-up recommended. 2. Distal tip of enteric tube projects over the gastric body. ACT 112: Negative or not required by law. The above report was generated using voice recognition software. It may contain grammatical, syntax o r spelling errors. Electronically signed by: Melvin Gonzalez M.D. 08/01/2023 12:43 PM
--- NOTE | 2023-08-01 15:22 | Communication Note ---
Date of Service: August 01, 2023 Contacted by primary service pt is having some nausea. Pt has 2 documented bowel movements today. NG tube, NPO, and KUB already ordered. KUB reading similar small and large bowel dilation as prior exams. Continue NPO , and NG tube at this time. VSS, will reevaluate patient in the AM.
--- NOTE | 2023-08-01 16:55 | Hospitalist Progress Note ---
Date of Service August 01, 2023 Assessment & Plan (1) Shortness of breath: (2) Aspiration pneumonia: (3) Ileus: (4) Supratherapeutic INR: (5) S/P endovascular aneurysm repair: (6) Chronic hypoxic respiratory failure: (7) History of CVA (cerebrovascular accident): (8) COPD (chronic obstructive pulmonary disease): Plan This is a 73-year-old male who has significant past medical history of COPD with chronic hypoxic respiratory failure on 3 L of O2 via NC, PAF, CAD, HTN, HLD, prior right thalamic CVA, T2DM, endovascular repair of AAA in February 2021 who presents to ED secondary to shortness of breath. Acute on chronic hypoxic respiratory failure Possible aspiration pneumonia H/O COPD on 3 L of oxygen, bronchiectasis --CTA chest shows mucoid material within the trachea and right lower lobe bronchus. Pulmonary will present on right lower extremity. Advanced emphysema Has been on intravenous Zosyn, Nebulized bronchodilators Supplemental oxygen to keep saturation 88 to 92% Aspiration precautions Has been started 1 intravenous methylprednisone since last night Has been tolerating BiPAP Clinically better and will continue steroid for now Strongly advised to use CPAP especially at nighttime Has been feeling better with Solu-Medrol Increasing shortness of breath this morning with increasing abdominal distention Received 20 of Lasix intravenously x 1 and also nebulized bronchodilator Postoperative ileus H/O vascular surgery on July 14, 2023 Postoperative Period was complicated with ileus requiring peripheral parenteral nutrition. --CT abdomen/pelvis shows distention of year and fluid level of large and small bowel, moderate size inguinal hernia. Finding likely ileus; however close follow-up needed to exclude partial obstruction Continue bowel rest, IV fluids Continue NG tube Patient had bowel movement overnight Appreciate surgery input and recommendation Currently no indication for surgery Remains hemodynamically stable with unremarkable electrolytes Abdominal distention and GI symptoms have been improving Bowel is moved We will replace phosphate and potassium and monitor NG tube has been taken out today-will get speech evaluation tomorrow Speech evaluation will be done tomorrow Appreciate speech input and recommendation-heart healthy diet was started with minced and moist consistency Advised to take small amount of food and very multiple time Abdomen remains distended but has been moving bowel with good bowel sound Abdomen remains distended and seems to be worse today with firm and tender on palpation Bowel sounds diminished with tingling sound-bowel moved may be distal to the obstruction NG tube will be putting and KUB done Surgery reevaluation Noted to be congested Crackles bibasilarly Given 20 of Lasix IV and has had enough diuresis Chest x-ray did not show any significant CHF Concern for GI bleed Endovascular leak with recent endovascular repair at [facility]. In setting of supratherapeutic INR Coumadin, Plavix are on hold Started on Protonix drip Noted to have drop in hemoglobin to 9 from 11 on of this month Melanotic stool is noted as well that was positive for blood Vitamin K 10 mg IV was given by the night doc INR dropped to 1.2 as of 07/27/2023 Discussed with the museum security chief and the patient started on intravenous heparin low-dose without bolus Appreciate GI evaluation and recommendation-no evidence of acute GI bleed and no need to do for any scope. If hemoglobin keeps dropping the patient will need to be transferred to [place] for endovascular leak Hemoglobin remains stable-no evidence of GI bleed No more evidence of GI bleed A-fib RVR H/O paroxysmal A-fib Presented with supratherapeutic INR INR was reversed with vitamin K due to concern for GI bleed Check TSH Monitor and replete electrolytes as needed Received digoxin IV Lopressor as needed Cardiology on board Monitor and replete electrolytes as needed Beta-windy has been added Rate seems to be controlled and converted to sinus rhythm as of this afternoon Remains in sinus rhythm Will restart oral Coumadin from tomorrow if possible Will start Coumadin after discussion with the museum security chief Coumadin has been started -INR remains high and more than 6-no evidence of bleeding. Will hold Coumadin tonight Recent vascular surgery on July 14, 2023 Endoleak noted in CTA abdomen/pelvis Acute infarct of inferior pole of left kidney --CTA abdomen pelvis shows endoleak involving the graft, moderate-sized acute infarct of inferior pole of left kidney --ED physician discussed with vascular surgery on-call at [facility] on admission; as per the vascular surgeonthis findings were present; no interventions needs to be done Continue to monitor. Urinary retention with Yun in place Yun catheter was placed after urinary retention in post-op period Maintain Yun Trial of void after resolution of ileus. History of cardioembolic stroke Supratherapeutic INR Monitor INR Resume Plavix as able Continue statin CVA Patient developed right-sided weakness after the surgery. MRI showed cardioembolic stroke on posterior circulation Patient was placed on Coumadin and Plavix INR supratherapeutic on presentation Resume Coumadin, plavix as able PT OT evaluation Continue statin LFTs mildly elevated--consider to hold statin if LFTs worsen Chronic conditions: Hypertension Type 2 diabetes mellituscontinue on sliding scale, last a1c 5.1 on 07/18/23 Continue home medications as able DVT Px: Coumadin held--concern for GI bleed SCDs for now Started on intravenous heparin low-dose without bolus CODE STATUS Full code Will discuss with the granddaughter and reevaluate CODE STATUS Admission and Anticipated Discharge Date Admission Date: July 25, 2023 Subjective 07/27/2023 The patient was seen and examined in telemetry He has been feeling shortness of breath and palpitation Denies any chest pain, abdominal discomfort but no abdominal pain. Denies nausea or vomiting 07/28/2023 The patient was seen and examined in telemetry unit He has been feeling little better today and has had bowel movement Abdomen remains distended and feels discomfort Not much drainage from the NG tube and the tube will be taken out Reverted to sinus rhythm and maintaining 07/29/2023 The patient was seen and examined in telemetry unit He has been feeling little better but remains short of breath and requiring 3 L/min to maintain saturation Denies any significant pain Abdomen remains distended but soft and bowel has been moving 07/30/2023 The patient was seen and examined in telemetry unit He has been feeling a little better today Has been eating reasonably Has shortness of breath last night and steroid has been ordered Clinically better this morning 07/31/2023 The patient was seen and examined in telemetry unit He weird CPAP whole night and has been feeling better this Has been on Solu-Medrol for possible COPD exacerbation Denies any significant symptoms and has been eating reasonably Will get PT and OT evaluate 08/01/2023 The patient was seen and examined in telemetry unit He seems to be worse today with increasing shortness of breath, increasing abdominal distention and pain No chest pain and/or palpitation Heart rate went up to 140 again today Review of Systems Review of Systems: All systems reviewed and are unremarkable except as noted below Physical Exam Physical Exam: Lying in bed with acute distress due to shortness of breath Constitutional: + ill appearing and average body habitus Eyes: PERRL, conjunctivae normal, anicteric sclerae ENMT: external ear and nose normal, oropharynx normal Neck: trachea midline, no thyromegaly Respiratory: + respiratory distress Auscultation: + diminished lung sounds and + crackles (Occasional crackles at the bases) Cardiovascular: Rate/Rhythm: + tachycardic and + irregularly irregular Heart Sounds: normal S1, normal S2 and + murmur Extremities: no edema Gastrointestinal (Abdomen): Inspection/Auscultation: + abdomen distended (Worsening distention) and normal bowel sounds (Decreased) Percussion/Palpation: + abdomen tender and abdomen soft; no guarding and abdomen not rigid Musculoskeletal: No acute arthritis involving any of the joint Neurologic: normal touch/pain/proprioception and moves all extremities; no focal motor deficits Lymphatic: no cervical or axillary lymphadenopathy Results & Data Results & Data Vital Signs (Past 12 Hours) Vital Signs Temp Pulse Pulse Resp BP Pulse Ox O2 Del Method 08/01/23 16:03 36.9 C 99 H 20 142/75 H 92 Nasal Cannula 08/01/23 15:28 99 H 08/01/23 12:18 36.6 C 89 20 134/75 90 Nasal Cannula 08/01/23 08:36 127 H 08/01/23 08:07 36.5 C 135 H 20 123/89 93 Nasal Cannula 08/01/23 08:00 Nasal Cannula 08/01/23 07:05 115 H 18 97 Nasal Cannula O2 Flow Rate 08/01/23 16:03 3 08/01/23 15:28 08/01/23 12:18 3 08/01/23 08:36 08/01/23 08:07 3 08/01/23 08:00 3 08/01/23 07:05 5 Laboratory Results Short CBC 08/01/23 Range/Units 05:32 WBC 14.96 H (4.8-10.8) K/ul Hgb 9.7 L (14.0-18.0) g/dl Hct 30.0 L (42.0-52.0) % Plt Count 115 L (130-400) K/uL BMP 07/31/23 08/01/23 23:35 05:32 Sodium 142 Potassium 3.0 L 3.9 D Chloride 107 Carbon Dioxide 30 BUN 33 H Creatinine 1.19 Glucose 137 H Calcium 7.5 L Medications Administered Current Inpatient Medications Al Hydrox/Mg Hydrox/Simethicone (Aluminum/Magnesium Susp 30 Ml Udc) 15 ml PO Q4H PRN PRN Reason: Dyspepsia Stop: 08/24/23 12:32 Last Admin: 08/01/23 06:40 Dose: 15 ml Atorvastatin Calcium (Atorvastatin 40 Mg Tab) 80 mg PO DAILY [facility] Stop: 08/25/23 08:59 Last Admin: 08/01/23 07:35 Dose: 80 mg Baclofen (Baclofen 10 Mg Tab) 10 mg PO Q8H PRN PRN Reason: back spasm Stop: 08/24/23 12:59 Last Admin: 07/27/23 07:48 Dose: 10 mg Budesonide (Budesonide 0.5 Mg/2 Ml Vial (Pulmicort)) 0.5 mg NEB BIDR [facility] Stop: 08/24/23 12:32 Last Admin: 08/01/23 07:04 Dose: 0.5 mg Formoterol Fumarate (Formoterol 20 Mcg/2 Ml Vial) 20 mcg NEB BIDR [facility] Stop: 08/24/23 12:32 Last Admin: 08/01/23 07:03 Dose: 20 mcg Gabapentin (Gabapentin 300 Mg Cap) 300 mg PO TID [facility] Stop: 08/24/23 13:59 Last Admin: 08/01/23 07:35 Dose: 300 mg Guaifenesin (Guaifenesin 600 Mg Tabcr) 1,200 mg PO Q12 [facility] Stop: 08/24/23 20:59 Last Admin: 08/01/23 07:34 Dose: 1,200 mg Methylprednisolone 40 mg/ (Syringe) 0.64 mls @ 1.5 mls/min IV BID [facility] Stop: 08/29/23 08:59 Last Admin: 08/01/23 07:34 Dose: 1.5 mls/min Levalbuterol HCl (Levalbuterol 1.25mg/0.5ml Neb) 1.25 mg NEB Q4R PRN; Protocol PRN Reason: Shortness Of Breath Or Wheezin Stop: 08/28/23 23:15 Metoprolol Tartrate (Metoprolol Tartrate 25 Mg Tab) 25 mg PO BID [facility] Stop: 08/29/23 08:59 Last Admin: 08/01/23 07:34 Dose: 25 mg Multivitamins (Multivitamin Tab) 1 tab PO DAILY [facility] Stop: 08/25/23 08:59 Last Admin: 08/01/23 07:35 Dose: 1 tab Ondansetron HCl (Ondansetron Inj 2 Mg/Ml 2 Ml Vial) 4 mg IV Q6H PRN PRN Reason: Nausea Stop: 08/24/23 12:32 Pantoprazole Sodium (Pantoprazole 40 Mg Tab) 40 mg PO QAM [facility] Stop: 08/29/23 08:59 Last Admin: 08/01/23 07:35 Dose: 40 mg Sodium Chloride (Sodium Chlor 7% 4 Ml Neb) 4 ml NEB BIDR [facility] Stop: 08/24/23 18:59 Last Admin: 08/01/23 07:03 Dose: 4 ml Thiamine HCl (Thiamine Hcl 100 Mg Tab) [facility] Stop: 08/30/23 14:59 Last Admin: 08/01/23 07:35 Dose: 100 mg Ursodiol (Ursodiol 300 Mg Cap) 300 mg PO BID [facility] Stop: 08/28/23 08:59 Last Admin: 08/01/23 07:34 Dose: 300 mg
--- NOTE | 2023-08-01 17:34 | XRay Report ---
KUB CLINICAL HISTORY: Enteric tube placement. FINDINGS: AP, portable, upright view of the lower chest and upper abdomen is compared to study perfor med earlier the same day 08/01/2023. Correlation is made with abdominal CT dated 07/25/2023. An enteric tube is unchanged in position. The tip projects below the diaphragm over the proximal stomach. No ev idence of intraperitoneal free air is seen below the diaphragm. Gaseous distention of the bowel persi sts. An aortic stent graft is partially visualized. There is bibasilar scarring/atelectasis. The skel etal structures are osteopenic and appear intact. IMPRESSION: 1. An enteric tube is unchanged in position. See above. 2. Gaseous distention of the bowel persists. Electronically signed by: Jarred Wilson M.D. 08/01/2023 5:32 PM
[2023-08-01] MEDS: HYDROmorphone INJ 0.5 MG/0.5 ML SYR IV PRN (17:38)
[2023-08-02] MEDS: LEVALBUTEROL 1.25 MG/3 ML NEB ONE (01:19)
[2023-08-02 06:26] LABS: Mean Corpuscular Hemoglobin 28.8 pg (25.0-34.0); Mean Corpuscular Hgb Conc 31.3 g/dL (32.0-36.0); Mean Corpuscular Volume 92.2 fL (80.0-100.0); Mean Platelet Volume 10.2 fL (9.4-12.4); Platelet Count 131 K/uL (130-400); RDW Standard Deviation 47.8 fL (36.4-46.3); Red Blood Count 3.47 M/uL (4.70-6.10)
[2023-08-02 06:49] LABS: Basophils # (auto) 0.07 K/uL (0.00-0.20); Basophils % (auto) 0.9 %; Immature Granulocytes # (auto) 0.09 K/uL (0.01-0.20); Immature Granulocytes % (auto) 1.2 %; Lymphocytes # (auto) 0.51 K/uL (1.20-3.40); Lymphocytes % (auto) 6.6 %; Monocytes # (auto) 0.62 K/uL (0.11-0.59); Monocytes % (auto) 8.1 %; Neutrophils # (auto) 6.41 K/uL (1.40-6.50); Neutrophils % (auto) 83.2 %; Ovalocytes 1+; Toxic Granulation 2+
[2023-08-02 07:00] LABS: BUN Creatinine Ratio 42.1 (10-20); Calcium 7.8 mg/dl (8.6-10.3); Creatinine Clr Calc Pharmacy 66.4 ml/min; Est GFR (African American) 90.4 ml/min; Phosphorus 2.2 mg/dl (2.5-4.9); Potassium 3.3 mmol/L (3.5-5.1)
[2023-08-02 07:02] LABS: INR 4.6 (0.9-1.1); Prothrombin Time 45.5 Seconds (9.0-12.0)
--- NOTE | 2023-08-02 07:30 | Surgery Progress Note ---
<Statement entered by Elizabeth Evans, DO - 08/04/23 13:45> I agree with this plan. A CT of the A/P was ordered. When I went to see the patient later in the day hoping to also review CT results with him, the patient made me aware that the scan was not performed. Nursing then made me aware that the patient actually refused the imaging which he denied with me. He also then did not want to go for the scans and stated he would think about it after a day or two of the NGT. Date of Service August 02, 2023 Assessment & Plan (1) Ileus: Plan: Pt resting in bed C/o of nausea, NGT in place draining brown liquid 500/750cc in 12/24hr Abd remains distended, soft, TTP epigastric, LIH flesh colored , no redness noted Continue current treatment plan at this time Will order Reglan scheduled to help with nausea Patient discussed with Dr. Evans Admission and Anticipated Discharge Date Admission Date: July 25, 2023 Subjective Patient resting in bed Complaint of Nausea and epigastric discomfort Review of Systems Gastrointestinal: + abdominal pain, + bloating and + nause a; no vomiting Physical Exam Constitutional: + ill appearing and cooperative; no acut e distress Gastrointestinal (Abdomen): Inspection/Auscultation: + abdomen distended Percussion/Palpation: + abdomen tender, abdomen soft and + hernia (LIH); no guarding Results & Data Vital Signs (Past 12 Hours) Vital Signs Temp Pulse Resp BP Pulse Ox O2 Del Method O2 Flow Rate 08/02/23 03:00 97.9 F 100 H 20 140/80 96 Nasal Cannula 08/02/23 01:19 100 H 18 94 Nasal Cannula 3 08/01/23 22:55 97.7 F 85 18 146/70 H 96 Nasal Cannula 08/01/23 20:00 Nasal Cannula 3 08/01/23 19:51 97.7 F 104 H 18 143/72 H 92 Room Air 08/01/23 19:37 106 H 16 95 Nasal Cannula 3 Results Complete Blood Count Results: RBC 3.47 M/uL (4.70-6.10) L 08/02/23 WBC 7.70 K/ul (4.8-10.8) 08/02/23 Hgb 10.0 g/dl (14.0-18.0) L 08/02/23 Hct 32.0 % (42.0-52.0) L 08/02/23 Plt Count 131 K/uL (130-400) 08/02/23 PG Care Time/CCT Total # of Minutes Spent Total Time Spent with Patient: Total time spent is greater than 50% in coordination of care (as documented) at patient's floor/unit and/or counseling patient: Coding Level of Care Code 01842 SUB INP/OBS CARE 1/25MIN Diagnoses Ileus K56.7
[2023-08-02] MEDS ORDERED: POTASSIUM PHOS 3 MMOL/1 ML INFUSION IV STA (08:20)
[2023-08-02] MEDS ORDERED: Nursing to Pharmacy Communication SCH (08:30)
[2023-08-02] MEDS: POTASSIUM PHOSPHATE 24 MMOL in SODIUM CHLORIDE 0.9% 500 ML IV ONE (09:20)
[2023-08-02] MEDS: METOCLOPRAMIDE HCL INJ 5 MG/ML 2 ML VIAL IV SCH (09:20)
--- NOTE | 2023-08-02 12:04 | XRay Report ---
KUB HISTORY: ng tube placement COMPARISON: KUB 08/01/2023. FINDINGS: Nasogastric tube terminates in the fundus of the stomach. Gaseous distention of the bowel r emains unchanged. An aortic stent graft is again noted. No renal calculi. No ureteral calculi. No pn eumoperitoneum or pneumatosis. IMPRESSION: 1. Nasogastric tube is unchanged in position and terminates in the proximal stomach 2. Gaseous distention of the visualized bowel again noted. ACT 112: Negative or not required by law. Electronically signed by: Wilver Roman M.D. 08/02/2023 12:03 PM
[2023-08-02] MEDS: METOPROLOL TARTRATE 1 MG/ML VIAL IV ONE (12:14)
[2023-08-02] MEDS: METOPROLOL TARTRATE 1 MG/ML VIAL IV STA (12:43)
[2023-08-02] MEDS: hydrALAZINE HCL 20 MG/ML VIAL ONE (16:11)
[2023-08-02] MEDS: hydrALAZINE HCL 20 MG/ML VIAL IV ONE (16:18)
--- NOTE | 2023-08-02 16:55 | Hospitalist Progress Note ---
Date of Service August 02, 2023 Assessment & Plan (1) Shortness of breath: (2) Aspiration pneumonia: (3) Ileus: (4) Supratherapeutic INR: (5) S/P endovascular aneurysm repair: (6) Chronic hypoxic respiratory failure: (7) History of CVA (cerebrovascular accident): (8) COPD (chronic obstructive pulmonary disease): Plan This is a 73-year-old male who has significant past medical history of COPD with chronic hypoxic respiratory failure on 3 L of O2 via NC, PAF, CAD, HTN, HLD, prior right thalamic CVA, T2DM, endovascular repair of AAA in February 2021 who presents to ED secondary to shortness of breath. Acute on chronic hypoxic respiratory failure Possible aspiration pneumonia H/O COPD on 3 L of oxygen, bronchiectasis --CTA chest shows mucoid material within the trachea and right lower lobe bronchus. Pulmonary will present on right lower extremity. Advanced emphysema Has been on intravenous Zosyn, Nebulized bronchodilators Supplemental oxygen to keep saturation 88 to 92% Aspiration precautions Has been started 1 intravenous methylprednisone since last night Has been tolerating BiPAP Clinically better and will continue steroid for now Strongly advised to use CPAP especially at nighttime Has been feeling better with Solu-Medrol Increasing shortness of breath this morning with increasing abdominal distention Received 20 of Lasix intravenously x 1 and also nebulized bronchodilator Remains stable and has been saturating normally 1 3 L nasal cannula Feels short of breath at rest Hypertension Elevated blood pressure Not being controlled with metoprolol 50 mg twice daily-dose was increased since this morning Received 1 dose of hydralazine without any effect Will try NTP 1 inch and observe Postoperative ileus H/O vascular surgery on July 14, 2023 Postoperative Period was complicated with ileus requiring peripheral parenteral nutrition. --CT abdomen/pelvis shows distention of year and fluid level of large and small bowel, moderate size inguinal hernia. Finding likely ileus; however close follow-up needed to exclude partial obstruction Continue bowel rest, IV fluids Continue NG tube Patient had bowel movement overnight Appreciate surgery input and recommendation Currently no indication for surgery Remains hemodynamically stable with unremarkable electrolytes Abdominal distention and GI symptoms have been improving Bowel is moved We will replace phosphate and potassium and monitor NG tube has been taken out today-will get speech evaluation tomorrow Speech evaluation will be done tomorrow Appreciate speech input and recommendation-heart healthy diet was started with minced and moist consistency Advised to take small amount of food and very multiple time Abdomen remains distended but has been moving bowel with good bowel sound Abdomen remains distended and seems to be worse today with firm and tender on palpation Bowel sounds diminished with tingling sound-bowel moved may be distal to the obstruction NG tube will be putting and KUB done Surgery reevaluation-appreciate input and recommendation Will try to convince for CT of the abdomen pelvis with oral contrast only-he refused to have it done this morning Noted to be congested Crackles bibasilarly Given 20 of Lasix IV and has had enough diuresis Chest x-ray did not show any significant CHF Concern for GI bleed Endovascular leak with recent endovascular repair at [facility]. In setting of supratherapeutic INR Coumadin, Plavix are on hold Started on Protonix drip Noted to have drop in hemoglobin to 9 from 11 on of this month Melanotic stool is noted as well that was positive for blood Vitamin K 10 mg IV was given by the night doc INR dropped to 1.2 as of 07/27/2023 Discussed with the fiscal specialist and the patient started on intravenous heparin low-dose without bolus Appreciate GI evaluation and recommendation-no evidence of acute GI bleed and no need to do for any scope. If hemoglobin keeps dropping the patient will need to be transferred to [place] for endovascular leak Hemoglobin remains stable-no evidence of GI bleed No more evidence of GI bleed A-fib RVR H/O paroxysmal A-fib Presented with supratherapeutic INR INR was reversed with vitamin K due to concern for GI bleed Check TSH Monitor and replete electrolytes as needed Received digoxin IV Lopressor as needed Cardiology on board Monitor and replete electrolytes as needed Beta-windy has been added Rate seems to be controlled and converted to sinus rhythm as of this afternoon Remains in sinus rhythm Will restart oral Coumadin from tomorrow if possible Will start Coumadin after discussion with the fiscal specialist Coumadin has been started -INR remains high and more than 6-no evidence of bleeding. Will hold Coumadin tonight Recent vascular surgery on July 14, 2023 Endoleak noted in CTA abdomen/pelvis Acute infarct of inferior pole of left kidney --CTA abdomen pelvis shows endoleak involving the graft, moderate-sized acute infarct of inferior pole of left kidney --ED physician discussed with vascular surgery on[place]call [place] [facility] [place] [facility] [place]; as per the vascular surgeonthis findings were present; no interventions needs to be done Continue to monitor. Urinary retention with Yun in place Yun catheter was placed after urinary retention in post-op period Maintain Yun Trial of void after resolution of ileus. History of cardioembolic stroke Supratherapeutic INR Monitor INR Resume Plavix as able Continue statin CVA Patient developed right-sided weakness after the surgery. MRI showed cardioembolic stroke on posterior circulation Patient was placed on Coumadin and Plavix INR supratherapeutic on presentation Resume Coumadin, plavix as able PT OT evaluation Continue statin LFTs mildly elevated--consider to hold statin if LFTs worsen Chronic conditions: Hypertension Type 2 diabetes mellituscontinue on sliding scale, last a1c 5.1 on 07/18/23 Continue home medications as able DVT Px: Coumadin held--concern for GI bleed SCDs for now Started on intravenous heparin low-dose without bolus CODE STATUS Full code Will discuss with the granddaughter and reevaluate CODE STATUS Discussed with the granddaughter about the CODE STATUS Patient remains full code Prognosis remains poor Admission and Anticipated Discharge Date Admission Date: July 25, 2023 Subjective 07/27/2023 The patient was seen and examined in telemetry He has been feeling shortness of breath and palpitation Denies any chest pain, abdominal discomfort but no abdominal pain. Denies nausea or vomiting 07/28/2023 The patient was seen and examined in telemetry unit He has been feeling little better today and has had bowel movement Abdomen remains distended and feels discomfort Not much drainage from the NG tube and the tube will be taken out Reverted to sinus rhythm and maintaining 07/29/2023 The patient was seen and examined in telemetry unit He has been feeling little better but remains short of breath and requiring 3 L/min to maintain saturation Denies any significant pain Abdomen remains distended but soft and bowel has been moving 07/30/2023 The patient was seen and examined in telemetry unit He has been feeling a little better today Has been eating reasonably Has shortness of breath last night and steroid has been ordered Clinically better this morning 07/31/2023 The patient was seen and examined in telemetry unit He weird CPAP whole night and has been feeling better this Has been on Solu-Medrol for possible COPD exacerbation Denies any significant symptoms and has been eating reasonably Will get PT and OT evaluate 08/01/2023 The patient was seen and examined in telemetry unit He seems to be worse today with increasing shortness of breath, increasing abdominal distention and pain No chest pain and/or palpitation Heart rate went up to 140 again today 08/02/2039 The patient was seen and examined in telemetry unit He has been unwell for the last few days Has abdominal distention and discomfort, occasional increasing shortness of breath and having tachycardic episodes Denies any chest pain and/or palpitation No fever and no chills Review of Systems Review of Systems: All systems reviewed and are unremarkable except as noted below Physical Exam Physical Exam: Lying in bed with acute distress due to shortness of breath Constitutional: + ill appearing and average body habitus Eyes: PERRL, conjunctivae normal, anicteric sclerae ENMT: external ear and nose normal, oropharynx normal Neck: trachea midline, no thyromegaly Respiratory: + respiratory distress Auscultation: + diminished lung sounds and + crackles (Occasional crackles at the bases) Cardiovascular: Rate/Rhythm: + tachycardic and + irregularly irregular Heart Sounds: normal S1, normal S2 and + murmur Extremities: no edema Gastrointestinal (Abdomen): Inspection/Auscultation: + abdomen distended (Wors ening distention) and normal bowel sounds (Decreased) Percussion/Palpation: + abdomen tender and abdomen soft; no guarding and abdomen not rigid Musculoskeletal: No acute arthritis involving any of the joints Neurologic: normal touch/pain/proprioception and moves all extremities; no fo aditya motor deficits Lymphatic: no cervical or axillary lymphadenopathy Results & Data Results & Data Vital Signs (Past 12 Hours) Vital Signs Temp Pulse Pulse Resp BP BP Pulse Ox 08/02/23 16:10 36.6 C 117 H 22 177/94 H 93 08/02/23 12:43 101 H 127/84 08/02/23 12:39 126/84 08/02/23 12:33 36.8 C 101 H 20 173/87 H 95 08/02/23 12:14 96 H 178/87 H 08/02/23 08:37 166/82 H 08/02/23 08:26 36.7 C 120 H 20 187/78 H 92 08/02/23 08:00 08/02/23 07:50 107 H 16 95 O2 Del Method O2 Flow Rate 08/02/23 16:10 Nasal Cannula 3 08/02/23 12:43 08/02/23 12:39 08/02/23 12:33 Nasal Cannula 3 08/02/23 12:14 08/02/23 08:37 08/02/23 08:26 Nasal Cannula 3 08/02/23 08:00 Nasal Cannula 3 08/02/23 07:50 Room Air Laboratory Results Short CBC 08/02/23 Range/Units 05:37 WBC 7.70 (4.8-10.8) K/ul Hgb 10.0 L (14.0-18.0) g/dl Hct 32.0 L (42.0-52.0) % Plt Count 131 (130-400) K/uL BMP 08/02/23 05:37 Sodium 146 H Potassium 3.3 L Chloride 108 H Carbon Dioxide 31 BUN 40 H Creatinine 0.95 Glucose 104 H Calcium 7.8 L Medications Administered Current Inpatient Medications Al Hydrox/Mg Hydrox/Simethicone (Aluminum/Magnesium Susp 30 Ml Udc) 15 ml PO Q4H PRN PRN Reason: Dyspepsia Stop: 08/24/23 12:32 Last Admin: 08/01/23 06:40 Dose: 15 ml Atorvastatin Calcium (Atorvastatin 40 Mg Tab) 80 mg PO DAILY [facility] Stop: 08/25/23 08:59 Last Admin: 08/02/23 07:30 Dose: 80 mg Baclofen (Baclofen 10 Mg Tab) 10 mg PO Q8H PRN PRN Reason: back spasm Stop: 08/24/23 12:59 Last Admin: 07/27/23 07:48 Dose: 10 mg Budesonide (Budesonide 0.5 Mg/2 Ml Vial (Pulmicort)) 0.5 mg NEB BIDR [facility] Stop: 08/24/23 12:32 Last Admin: 08/02/23 07:43 Dose: 0.5 mg Formoterol Fumarate (Formoterol 20 Mcg/2 Ml Vial) 20 mcg NEB BIDR [facility] Stop: 08/24/23 12:32 Last Admin: 08/02/23 07:48 Dose: Not Given Gabapentin (Gabapentin 300 Mg Cap) 300 mg PO TID [facility] Stop: 08/24/23 13:59 Last Admin: 08/02/23 13:00 Dose: 300 mg Guaifenesin (Guaifenesin 600 Mg Tabcr) 1,200 mg PO Q12 [facility] Stop: 08/24/23 20:59 Last Admin: 08/02/23 07:31 Dose: 1,200 mg Hydromorphone HCl (Hydromorphone Inj 0.5 Mg/0.5 Ml Syr) 0.25 mg IV Q6H PRN PRN Reason: Pain Stop: 08/15/23 16:55 Last Admin: 08/02/23 08:01 Dose: 0.25 mg Methylprednisolone 40 mg/ (Syringe) 0.64 mls @ 1.5 mls/min IV BID [facility] Stop: 08/29/23 08:59 Last Admin: 08/02/23 07:32 Dose: 1.5 mls/min Levalbuterol HCl (Levalbuterol 1.25mg/0.5ml Neb) 1.25 mg NEB Q4R PRN; Protocol PRN Reason: Shortness Of Breath Or Wheezin Stop: 08/28/23 23:15 Metoclopramide HCl (Metoclopramide Hcl Inj 5 Mg/Ml 2 Ml Vial) 10 mg IV Q6H [facility] Stop: 08/04/23 07:29 Last Admin: 08/02/23 13:00 Dose: 10 mg Metoprolol Tartrate (Metoprolol Tartrate 50 Mg Tab) 50 mg PO BID [facility] Stop: 09/01/23 20:59 Multivitamins (Multivitamin Tab) 1 tab PO DAILY [facility] Stop: 08/25/23 08:59 Last Admin: 08/02/23 07:30 Dose: 1 tab Ondansetron HCl (Ondansetron Inj 2 Mg/Ml 2 Ml Vial) 4 mg IV Q6H PRN PRN Reason: Nausea Stop: 08/24/23 12:32 Pantoprazole Sodium (Pantoprazole 40 Mg Tab) 40 mg PO QAM [facility] Stop: 08/29/23 08:59 Last Admin: 08/02/23 07:32 Dose: 40 mg Sodium Chloride (Sodium Chlor 7% 4 Ml Neb) 4 ml NEB BIDR [facility] Stop: 08/24/23 18:59 Last Admin: 08/02/23 07:48 Dose: Not Given Thiamine HCl (Thiamine Hcl 100 Mg Tab) 100 mg PO QAM [facility] Stop: 08/30/23 14:59 Last Admin: 08/02/23 07:30 Dose: 100 mg Ursodiol (Ursodiol 300 Mg Cap) 300 mg PO BID [facility] Stop: 08/28/23 08:59 Last Admin: 08/02/23 07:30 Dose: 300 mg
[2023-08-02] MEDS: NITROGLYCERIN 2% OINTMENT 30GM TUBE EXT SCH (17:12)
[2023-08-02] MEDS: FUROSEMIDE INJ 20 MG/2 ML VIAL IV ONE ×2 (17:23→18:01)
[2023-08-02] MEDS: POTASSIUM CHLORIDE / WTR 10 MEQ/100 ML PLCT IV ONE (19:19)
[2023-08-02] MEDS: MoRPHine SULFATE 2 MG/ML CARP IV STA (19:45)
[2023-08-02 20:14] LABS: Base Excess ABG 3.2 mEq/L (-9-1.8); HCO3 ABG 32 mmol/L (19-24); Oxygen Saturation ABG 90.5 % (90-95); PCO2 ABG 66 mmHg (35-46); PO2 ABG 60 mmHg (80-95); pH ABG 7.29 (7.35-7.45)
[2023-08-02] MEDS: METOPROLOL TARTRATE 50 MG TAB PO SCH (20:53)
[2023-08-02 21:17] LABS: Allen Test Pos (Pos)
[2023-08-02 21:48] LABS: HCO3 ABG 31 mmol/L (19-24); PCO2 ABG 65 mmHg (35-46); PO2 ABG 153 mmHg (80-95); pH ABG 7.28 (7.35-7.45)
[2023-08-02 21:50] LABS: Allen Test Pos (Pos)
--- NOTE | 2023-08-02 21:56 | CT Scan Report ---
Exam(s): CT ABDOMEN + PELVIS Without Contrast EXAM: CT Abdomen and Pelvis Without Intravenous Contrast CLINICAL HISTORY: Reason for exam: abdominal distension.. TECHNIQUE: Axial computed tomography images of the abdomen and pelvis without intravenous contrast. CTDI is 36.18 mGy and DLP is 1603.1 mGy-cm. Automated exposure control was utilized for the study. A dose lowering technique was utilized adhering to the principles of ALARA. COMPARISON: 07/25/23 FINDINGS: Lung bases: Mild to moderate emphysema in the lung bases. Focus of subsegmental atelectasis seen in the right lower lobe. There is mucous plugging of the right lower lobe bronchial tree. Pleural space: Small left pleural effusion. ABDOMEN: Liver: Unremarkable. Gallbladder and bile ducts: Layering high density in the gallbladder could be from microlithiasis. No calcified stones. No ductal dilation. Pancreas: Unremarkable. No ductal dilation. Spleen: Unremarkable. No splenomegaly. Adrenals: Unremarkable. No mass. 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 No obstructing stones. No hydronephrosis. Stomach and bowel: Moderate fluid and air distention of multiple bowel loops is noted. No mucosal thickening. There is left inguinal hernia containing a loop of bowel, similar to prior study PELVIS: Appendix: No findings to suggest acute appendicitis. Bladder: Unremarkable. No stones. Reproductive: Unremarkable as visualized. ABDOMEN and PELVIS: Intraperitoneal space: Unremarkable. No free air. No significant fluid collection. Bones/joints: No acute fracture. No dislocation. Moderate degenerative disc disease changes seen in the lumbar spine. Soft tissues: Mild cutaneous tissue edema in the abdominal and pelvic harrell. Vasculature: There is aortobiiliac endovascular stent graft located in abdominal aortic aneurysm sac. Multiple stents are seen in bilateral renal arteries, celiac artery and superior mesenteric artery. Lymph nodes: Unremarkable. No enlarged lymph nodes. IMPRESSION: 1. Fluid and air distention of small and large bowel loops which could be from ileus 2. Status post endovascular stent graft in abdominal aortic aneurysm. Previously noted endoleak cannot be evaluated without IV contrast. 3. Right basilar aspiration changes. Small left pleural effusion Electronically signed by: Neeraj iKran MD 08/02/23 21:55 PM
--- NOTE | 2023-08-02 21:58 | CT Scan Report ---
Exam(s): CT HEAD Without Contrast EXAM: CT Head Without Intravenous Contrast CLINICAL HISTORY: Reason for exam: AMS. TECHNIQUE: Axial computed tomography images of the head/brain without intravenous contrast. CTDI is 36.18 mGy and DLP is 1603.1 mGy-cm. Automated exposure control was utilized for the study. A dose lowering technique was utilized adhering to the principles of ALARA. COMPARISON: No relevant prior studies available. FINDINGS: Brain: Unremarkable. No hemorrhage. No significant white matter disease. No edema. Ventricles: Unremarkable. No ventriculomegaly. Bones/joints: Unremarkable. No acute fracture. Soft tissues: Unremarkable. Sinuses: Unremarkable as visualized. No acute sinusitis. Mastoid air cells: Unremarkable as visualized. No mastoid effusion. IMPRESSION: Normal head/brain CT. Electronically signed by: Neeraj Kiran MD 08/02/23 21:57 PM
--- NOTE | 2023-08-02 21:59 | CT Scan Report ---
Exam(s): CT CHEST Without Contrast EXAM: CT Chest Without Intravenous Contrast CLINICAL HISTORY: Reason for exam: sob.. TECHNIQUE: Axial computed tomography images of the chest without intravenous contrast. CTDI is 36.18 mGy and DLP is 1603.1 mGy-cm. Automated exposure control was utilized for the study. A dose lowering technique was utilized adhering to the principles of ALARA. COMPARISON: No relevant prior studies available. FINDINGS: Lungs: There is bilateral centrilobular emphysema. Atelectatic changes with mucous plugging in the right lower lobe bronchial tree. No mass. Pleural space: Small left pleural effusion. No pneumothorax. Heart: Unremarkable. No cardiomegaly. No significant pericardial effusion. No significant coronary artery calcifications. Bones/joints: Unremarkable. No acute fracture. No dislocation. Soft tissues: Unremarkable. Vasculature: Unremarkable. No thoracic aortic aneurysm. Lymph nodes: Unremarkable. No enlarged lymph nodes. IMPRESSION: 1. Right lower lobe atelectasis with mucous plugging of the bronchial tree, suggestive of aspiration changes 2. Small left pleural effusion 3. Pulmonary emphysema Electronically signed by: Neeraj Kiran MD 08/02/23 21:58 PM
[2023-08-03] MEDS: METOPROLOL TARTRATE 1 MG/ML VIAL IV STA ×2 (06:12→09:02)
[2023-08-03 07:03] LABS: INR 3.8 (0.9-1.1)
[2023-08-03 07:24] VITALS: TEMP 97.9
--- NOTE | 2023-08-03 07:31 | XRay Report ---
KUB CLINICAL HISTORY: Enteric tube placement. FINDINGS: An AP, portable, upright view of the lower chest and upper abdomen is compared to abdominal radiographs and CT performed earlier the same day 08/02/2023. An enteric tube is in place. This has b een slightly advanced as compared to today's earlier examination with the tip projecting over the pro ximal stomach. Distended and gas-filled bowel loops are seen in the upper abdomen. No evidence of int raperitoneal free air is seen below the diaphragm. An aortic stent graft is in place. The lung bases are clear as imaged. IMPRESSION: 1. Enteric tube placement as above. 2. Distended gas-filled loops of bowel are seen below the diaphragm. Electronically signed by: Jarred Wilson M.D. 08/03/2023 7:30 AM
--- NOTE | 2023-08-03 07:53 | Surgery Progress Note ---
Date of Service August 03, 2023 Assessment & Plan (1) Ileus: Plan: We are following along patient for abdominal distention We ordered a CT w/ PO and rectal contrast yesterday, however pt was hesitant to proceed with imaging. Then later that evening it appears patient developed some respiratory concerns and confusion and he was scan head/chest/abd/pelvis, no oral contrast was used for abdominal studies. Therefore limited examination, but the imaging suggests ileus Today his abdomen remains distended, but appears slightly improved and is soft and non tender BM's are documented yesterday and today. He endorses passing gas NGT with minimal output in canister this AM, with 500cc documented yesterday Continue NGT for time being, may need to obtain a contrasted study at some point He is on a 1:1 sitter for pulling at tubes May need to consider some type of nutrition in the near future if remains NPO Pulmonary consulted for CT chest findings and requiring Bipap Admission and Anticipated Discharge Date Admission Date: July 25, 2023 Subjective Patient a bit difficult to understand at times with Bipap in place. He does deny any pain or nausea. He reports passing gas and BMs. Physical Exam Physical Exam: wearing bipap Gastrointestinal (Abdomen): Inspection/Auscultation: + abdomen distended (maybe seems slightly improved ) Percussion/Palpation: abdomen soft; abdomen nontender Results & Data Vital Signs (Past 12 Hours) Vital Signs Temp Pulse Pulse Resp BP Pulse Ox O2 Del Method 08/03/23 07:23 97.9 F 121 H 25 H 169/90 H 96 BiPAP 08/03/23 07:02 107 H 20 98 08/03/23 07:02 107 H 20 98 08/03/23 06:27 109 H 08/03/23 06:12 151 H 08/03/23 03:50 113 H 20 95 08/03/23 00:15 127 H 08/02/23 23:10 20 96 08/02/23 21:31 98.1 F 129 H 24 155/77 H 95 BiPAP 08/02/23 20:35 122 H 35 H 98 08/02/23 20:35 122 H 35 H 98 BiPAP FiO2 08/03/23 07:23 08/03/23 07:02 40 08/03/23 07:02 40 08/03/23 06:27 08/03/23 06:12 08/03/23 03:50 40 08/03/23 00:15 08/02/23 23:10 40 08/02/23 21:31 08/02/23 20:35 40 08/02/23 20:35 40 PG Care Time/CCT Total # of Minutes Spent Total Time Spent with Patient: Total time spent is greater than 50% in coordination of care (as documented) at patient's floor/unit and/or counseling patient: Coding Level of Care Code 51115 SUB INP/OBS CARE 1/25MIN Diagnoses Ileus K56.7
[2023-08-03 08:05] LABS: Base Excess ABG 6.9 mEq/L (-9-1.8); HCO3 ABG 32 mmol/L (19-24); Oxygen Saturation ABG 99.1 % (90-95); PCO2 ABG 50 mmHg (35-46); PO2 ABG 116 mmHg (80-95); pH ABG 7.42 (7.35-7.45)
[2023-08-03] MEDS ORDERED: POTASSIUM PHOS 3 MMOL/1 ML INFUSION IV STA (08:38)
[2023-08-03 08:39] LABS: Allen Test Pos (Pos)
[2023-08-03] MEDS ORDERED: POTASSIUM CHLORIDE / WTR 10 MEQ/100 ML PLCT IV SCH (08:45)
[2023-08-03 09:52] LABS: Mean Corpuscular Hemoglobin 28.9 pg (25.0-34.0); Mean Corpuscular Volume 93.2 fL (80.0-100.0); Platelet Count 161 K/uL (130-400); RDW Coefficient of Variation 14.2 % (11.5-14.5); RDW Standard Deviation 47.9 fL (36.4-46.3); Red Blood Count 3.11 M/uL (4.70-6.10); White Blood Count 5.68 K/ul (4.8-10.8)
[2023-08-03 09:59] LABS: BUN Creatinine Ratio 47.3 (10-20); Calcium 8.1 mg/dl (8.6-10.3); Creatinine Clr Calc Pharmacy 69.3 ml/min; Est GFR (African American) 95.2 ml/min; Est GFR (Non-African American) 82.2 ml/min; Potassium 3.7 mmol/L (3.5-5.1)
[2023-08-03 10:22] LABS: Basophils # (auto) 0.04 K/uL (0.00-0.20); Basophils % (auto) 0.7 %; Immature Granulocytes # (auto) 0.05 K/uL (0.01-0.20); Immature Granulocytes % (auto) 0.9 %; Lymphocytes # (auto) 0.41 K/uL (1.20-3.40); Lymphocytes % (auto) 7.2 %; Monocytes # (auto) 0.44 K/uL (0.11-0.59); Monocytes % (auto) 7.7 %; Neutrophils # (auto) 4.74 K/uL (1.40-6.50); Neutrophils % (auto) 83.5 %; Ovalocytes 1+; Toxic Granulation 2+
--- NOTE | 2023-08-03 13:47 | Hospitalist Progress Note ---
Date of Service August 03, 2023 Assessment & Plan (1) Shortness of breath: (2) Aspiration pneumonia: (3) Ileus: (4) Supratherapeutic INR: (5) S/P endovascular aneurysm repair: (6) Chronic hypoxic respiratory failure: (7) History of CVA (cerebrovascular accident): (8) COPD (chronic obstructive pulmonary disease): Plan Pt is a 73-year-old male with complex medical history significant for COPD with chronic hypoxic respiratory failure on 3 L of O2 via NC, PAF, CAD, HTN, HLD, prior right thalamic CVA, T2DM, endovascular repair of AAA in February 2021 with repeat repair on 07/14/23 who presented to the ED secondary to shortness of breath. Pt was previously hospitalized at [facility] for most recent endovascular AAA repair in July 2023 with complicated post-op course. His postoperative course involved ileus requiring patient to undergo parenteral nutrition. He developed urinary retention requiring Yun catheter placement. On postop day 4 he was noted to have significant cognitive changes involving speech and hemiparesis of right side. Initial CT scan was negative however MRI confirmed acute infarct in the left brigido, left thalamus, hippocampus, corpus callosum, temporal and occipital lobes as well as bilateral cerebellum. CT of abdomen pelvis also confirmed development of right lower lobe possible aspiration and significant infarction of lower pole of left kidney. Once stabilized he was discharged to [facility] rehab where he was admitted on 07/22/2023. He was subsequently readmitted at [facility] with acute hypoxic respiratory failure and ileus requiring NG tube placement. There was also concern for GI Bleed. Overnight on August 01, pt decompensated once more requiring bipap and more confused. Also was in a fib with RVR and persistent ileus requiring NG Tube placement. Extensive discussion with pt's granddaughter and PODave Adriano multiple times throughout the day. Agreeable to changing code status to DNR/DNI. States that pt has an advance directive with comfort measures in a situation like this. She stated that pt has been saying he wants to go home, is confused and has been pulling at the bipap. Would like to take him home as soon as possible with hospice. Would like to make pt comfort measures only at this time. Would like him to have "breaks" from bipap while here. Agreeable to discussing further with Case management. Pt is currently comfort measures only with goal of home with hospice. CM evaluating whether NG tube can be used at home for comfort decompression. He was previously treated for the following: Acute on chronic hypoxic respiratory failure Possible aspiration pneumonia H/O COPD on 3 L of oxygen, bronchiectasis --CTA chest shows mucoid material within the trachea and right lower lobe bronchus. Advanced emphysema Was treated with IV Zosyn, nebulized bronchodilators and IV steroids, supplemental oxygen to keep saturation 88 to 92% Aspiration precautions Bipap with worsening symptoms Hypertension Elevated blood pressure Not being controlled with metoprolol 50 mg twice daily-dose was increased since this morning Received 1 dose of hydralazine without any effect Will try NTP 1 inch and observe Postoperative ileus H/O vascular surgery on July 14, 2023 Postoperative Period was complicated with ileus requiring peripheral parenteral nutrition. --CT abdomen/pelvis shows distention of year and fluid level of large and small bowel, moderate size inguinal hernia. Finding likely ileus; however close follow-up needed to exclude partial obstruction Continue bowel rest, IV fluids Continue NG tube Having [facility] General Surgery consulted, appreciate recs Currently no indication for surgery Concern for GI bleed Endovascular leak with recent endovascular repair at [facility]. In setting of supratherapeutic INR Coumadin, Plavix are on hold Started on Protonix drip Noted to have drop in hemoglobin to 9 from 11 on of this month Melanotic stool is noted as well that was positive for blood Vitamin K 10 mg IV was given by the night doc INR dropped to 1.2 as of 07/27/2023 Discussed with the paint tester and the patient started on intravenous heparin low-dose without bolus Appreciate GI evaluation and recommendation-no evidence of acute GI bleed and no need to do for any scope. If hemoglobin keeps dropping the patient will need to be transferred to [place] for endovascular leak Hemoglobin remains stable-no evidence of GI bleed No more evidence of GI bleed A-fib RVR H/O paroxysmal A-fib Presented with supratherapeutic INR INR was reversed with vitamin K due to concern for GI bleed Check TSH Monitor and replete electrolytes as needed Received digoxin IV Lopressor as needed Cardiology consulted, appreciate recs A fib with RVR on 08/01- started on metoprolol IV 5mg q4h, pt unable to take po Urinary retention with Yun in place Yun catheter was placed after urinary retention in post-op period Maintain Yun Trial of void after resolution of ileus. History of cardioembolic stroke Supratherapeutic INR Monitor INR Resume Plavix as able Continue statin CVA Patient developed right-sided weakness after the surgery. MRI showed cardioembolic stroke on posterior circulation Patient was placed on Coumadin and Plavix INR supratherapeutic on presentation Resume Coumadin, plavix as able PT OT evaluation Continue statin LFTs mildly elevated--consider to hold statin if LFTs worsen Chronic conditions: Hypertension Type 2 diabetes mellituscontinue on sliding scale, last a1c 5.1 on 07/18/23 Continue home medications as able Admission and Anticipated Discharge Date Admission Date: July 25, 2023 Subjective Pt discussed with granddaughter Adriano today. She states that she is the pt's POA and his advance directive was comfort measures in a situation like this. She stated that pt has been saying he wants to go home, is confused and has been pulling at the bipap. Would like to take him home tomorrow with hospice. Would like him to have "breaks" from bipap while here. Agreeable to discussing further with Case management Review of Systems Review of Systems: All systems reviewed & are unremarkable except as noted in Subjective Physical Exam Physical Exam: General: Alert, agitated. Psych: Agitated, pulling at bipap mask on face HEENT: NC/AT CV: Irregular rate and rhythm Resp: no increased effort of breathing, bipap mask on face Abdomen: Soft, distended Results & Data Results & Data Vital Signs (Past 12 Hours) Vital Signs Temp Pulse Pulse Resp BP BP BP 08/03/23 11:06 36.6 C 112 H 23 157/91 H 08/03/23 09:23 117 H 134/79 08/03/23 09:15 117 H 134/79 08/03/23 09:02 125 H 131/71 08/03/23 08:00 08/03/23 07:23 36.6 C 121 H 25 H 169/90 H 08/03/23 07:02 107 H 20 08/03/23 07:02 107 H 20 08/03/23 06:27 109 H 08/03/23 06:12 151 H 08/03/23 03:50 113 H 20 Pulse Ox O2 Del Method FiO2 08/03/23 11:06 97 BiPAP 08/03/23 09:23 08/03/23 09:15 08/03/23 09:02 08/03/23 08:00 BiPAP 08/03/23 07:23 96 BiPAP 08/03/23 07:02 98 40 08/03/23 07:02 98 40 08/03/23 06:27 08/03/23 06:12 08/03/23 03:50 95 40
--- NOTE | 2023-08-03 13:48 | Pulmonary Consultation ---
Date of Consultation August 03, 2023 History of Present Illness Reason for Consultation: Hypoxemic respiratory failure and pneumonia Attending Physician: China Pearl MD History of Present Illness 73-year-old female who was originally admitted to the hospital 07/25/2023 with a history of COPD, chronic hypoxic respiratory failure on 3 L of oxygen, paroxysmal A-fib, coronary artery disease and hypertension, prior right thalamic CVA, type 2 diabetes mellitus, endovascular AAA repair in 2020 who presented to the ER due to shortness of breath. She also had a recent hospitalization at [facility] and she also had coil embolization of an aneurysm sac in 2021. Earlier this month she was hospitalized for further endovascular repair and had placement of a modified endovascular graft. Postoperative course was complicated with ileus the patient required tube feeds. During this hospitalization patient was found to have melanotic stools and was started on a Protonix drip. GI did not recommend any acute interventions at the time and her hemoglobin stabilized. She did have bouts of atrial fibrillation with rapid ventricular response. Hospitalist services noted "acute on chronic hypoxic respiratory failure". She had an ABG yesterday evening which revealed acute acidosis with a pH of 7.28 and pCO2 of 65. She did remain on BiPAP and her pH normalized to 7.42 with a pCO2 of 50. CT chest completed 08/02/2023 was personally reviewed which revealed right lower lobe atelectasis with mucous plugging and a small pleural effusion. Significant pulmonary emphysema was noted. Patient is currently on methylprednisone 40 mg twice daily, budesonide nebulized, nebulized formoterol, hypertonic saline twice daily and Mucinex. Patient has been without fever throughout this admission. No cultures have been obtained. No leukocytosis noted over the past 2 days. Allergies Allergy/AdvReac Type Severity Reaction Status Date / Time diltiazem Allergy Severe throat Verified 07/25/23 10:55 tightness doxycycline Allergy Severe SOB Verified 07/25/23 10:55 mometasone furoate AdvReac Mild nausea and Verified 07/25/23 10:55 [From Alondra Martinez] vomiting Home Medications Medication Instructions Recorded Confirmed Type atorvastatin 40 mg tablet 80 mg PO DAILY 07/25/23 07/25/23 History baclofen 10 mg tablet 10 mg PO Q8H 07/25/23 07/25/23 History clopidogrel 75 mg tablet 75 mg PO DAILY 07/25/23 07/25/23 History cyproheptadine 4 mg tablet 4 mg PO HS 07/25/23 07/25/23 History docusate sodium 100 mg tablet 100 mg PO BID 07/25/23 07/25/23 History fluticasone furoate 100 1 inh inhalation DAILY 07/25/23 07/25/23 History mcg-vilanterol 25 mcg/dose inhalation powder gabapentin 300 mg capsule 300 mg PO TID 07/25/23 07/25/23 History pantoprazole 40 mg tablet,delayed 40 mg PO DAILY 07/25/23 07/25/23 History release therapeutic multivitamin 1 tab PO DAILY 07/25/23 07/25/23 History umeclidinium 62.5 mcg/actuation 1 inh inhalation DAILY 07/25/23 07/25/23 History blister powder for inhalation ursodiol 250 mg tablet 125 mg PO BID 07/25/23 07/25/23 History warfarin 5 mg tablet 10 mg PO DAILY 07/25/23 07/25/23 History Patient History Medical History AAA (abdominal aortic aneurysm) CAD (coronary artery disease) hx of mI in 1992 HLD (hyperlipidemia) HTN (hypertension) COPD (chronic obstructive pulmonary disease) History of CVA (cerebrovascular accident) PAF (paroxysmal atrial fibrillation) Chronic hypoxic respiratory failure T2DM (type 2 diabetes mellitus) Surgical History H/O thoracic aortic aneurysm repair 2021 Hx of cataract surgery History of tonsillectomy and adenoidectomy Hx of appendectomy S/P AAA repair 07/14/23 endovascular repair of endoleak S/P EVAR 02/20/2021 with [place] Stent graft performed at [facility] in [place]. He presented to [facility] 04/21/2021 with acute, severe epigastric pain, nausea, and vomiting. Work-up included CT abdomen/pelvis revealing s/p EVAR with possible type 1 vs type 3 endoleak. S/P coil embolization of aneurysmal sac and coil embolization of feeding lumbar arteries by Dr. Carrillo on 07/10/2021 Post operative imaging demonstrated persistent endoleak, with some concern regarding a Type 1a endoleak. S/P physician modified endograft on 07/14/2023 Family History Other CHF (congestive heart failure) Diabetes Stroke Social History Smoking Status: Former smoker Tobacco Type: Cigarettes Second Hand Exposure: No; Do You Dip or Chew Tobacco: No; Tobacco Cessation Education Requested by Patient: No Hx Alcohol Use: Yes Alcohol type: beer and hard liquor Hx Substance Use: No Preferred Language: Amharic Communication Ability: Effective Communication Ability Comment: previous CVA slurred speech, asphagia and Weakness of (R)UE and (R)LE [employer] Required: No Beliefs That Will Affect Care: None Current Living Situation: Rehab Current Living Situation Comment: Prior to last procedure pt lived at home with grand-daughter and her husban Feels Safe at Home: Yes Safety Concerns: Feels Safe At This Time Results & Data Results & Data Vital Signs (Past 12 Hours) Vital Signs Temp Pulse Pulse Resp BP BP BP 08/03/23 11:06 36.6 C 112 H 23 157/91 H 08/03/23 09:23 117 H 134/79 08/03/23 09:15 117 H 134/79 08/03/23 09:02 125 H 131/71 08/03/23 08:00 08/03/23 07:23 36.6 C 121 H 25 H 169/90 H 08/03/23 07:02 107 H 20 08/03/23 07:02 107 H 20 08/03/23 06:27 109 H 08/03/23 06:12 151 H 08/03/23 03:50 113 H 20 Pulse Ox O2 Del Method FiO2 08/03/23 11:06 97 BiPAP 08/03/23 09:23 08/03/23 09:15 08/03/23 09:02 08/03/23 08:00 BiPAP 08/03/23 07:23 96 BiPAP 08/03/23 07:02 98 40 08/03/23 07:02 98 40 08/03/23 06:27 08/03/23 06:12 08/03/23 03:50 95 40 PG Care Time/CCT Total # of Minutes Spent Total Time Spent with Patient: Total time spent is greater than 50% in coordination of care (as documented) at patient's floor/unit and/or counseling patient: Coding
[2023-08-03] MEDS ORDERED: ATROPINE SULFATE 1% OP SOLN 5 ML BTL SL PRN (14:15)
[2023-08-03] MEDS ORDERED: LORazepam 0.5 MG TAB PO PRN (14:15)
[2023-08-03] MEDS ORDERED: LORazepam 0.5 MG in SYRINGE 0.25 ML IV PRN (14:15)
[2023-08-03] MEDS ORDERED: ONDANSETRON 4 MG OD TAB SL PRN (14:15)
[2023-08-03] MEDS ORDERED: HYDROmorphone INJ 0.5 MG/0.5 ML SYR IV PRN (14:15)
[2023-08-03] MEDS ORDERED: ONDANSETRON INJ 2 MG/ML 2 ML VIAL IV PRN (14:15)
[2023-08-03] MEDS: METOPROLOL TARTRATE 1 MG/ML VIAL IV SCH (17:17)
[2023-08-04 10:03] VITALS: RESP 20; O2SAT 95
--- NOTE | 2023-08-04 12:22 | Discharge Summary ---
Discharge Summary Date of Service August 04, 2023 Notes For Next Care Provider Per discussion with family patient was made comfort measures and discharged home with hospice services. Family requested discharge with NG Tube for comfort at home, Hospice services agreeable. Per General Surgery: " Place NGT to low intermittent wall suction q4 hours x 1 hour, or as needed if patient develops nausea/vomiting. Otherwise maintain NGT to gravity." Pt unable to take po medications, Toprol switched to metoprolol tartrate 50mg BID on discharge for NG tube administration. Medication Changes From Visit Metoprolol Tartrate 50mg BID for use with NG Tube Admission HPI Per Admitting Provider This is a 73-year-old male who has significant past medical history of COPD with chronic hypoxic respiratory failure on 3 L of O2 via NC, PAF, CAD, HTN, HLD, prior right thalamic CVA, T2DM, endovascular repair of AAA in February 2021 who presents to ED secondary to shortness of breath. Of significance patient had recent hospitalization at [facility] [place]. In regards to his prior endovascular repair of AAA, in July 2021 he had a coil embolization of his aneurysm sac as well as the feeding lumbar arteries. Despite this on follow-up patient continued to have a persistent endovascular leak with further enlargement of his abdominal aneurysm. On 07/13/2023 he consented to be hospitalized for further endovascular repair and he had a placement of a modified endovascular graft, dated for flow to his inferior superior mesenteric arteries as well as bilateral renal arteries. His hospital course postoperatively was complicated with postoperative ileus requiring patient to undergo parenteral nutrition. He developed urinary retention requiring Yun catheter placement. On postop day 4 he noted to have significant cognitive changes involving speech and hemiparesis of right side. Initial CT scan was negative however MRI confirmed acute infarct in the left brigido, left thalamus, hippocampus, corpus callosum, temporal and occipital lobes as well as bilateral cerebellum. CT of abdomen pelvis also confirmed development of right lower lobe possible aspiration and significant infarction of lower pole of left kidney. Once stabilized he was discharged to [facility] rehab where he was admitted on 07/22/2023. While being admitted to [facility] he had been undergoing rehab. Granddaughter at bedside states that he was starting to eat solid foods. He has had limited mobility since admission to rehab. He developed subsequent shortness of breath. He has a persistent productive cough and is having difficulty expectorating sputum. When he does it is brown. He feels more short of breath than baseline. He denies any fever, chills, sweats, chest pain, hemoptysis, nausea, vomiting or abdominal pain. He continues to have Yun catheter in place. Granddaughter at bedside states that he failed a voiding trial and had to have a Yun catheter replaced. He continues to have a distended abdomen and passing minimal gas. He did have 2 bowel movements per patient. Admission Exam Per Admitting Provider Constitutional: Awake, alert oriented x 3; not in distress. Respiratory: Bilateral vesicular breath sounds; no wheezes. Cardiovascular: Tachycardic RRR, no murmur, no edema Vessels: no JVD or carotid bruit Chest: normal inspection of chest Abdomen: Distended, nontender. Bowel sounds hypoactive Musculoskeletal: no cyanosis or clubbing, extremities motor strength 5/5 Skin: no rashes, warm and dry normal turgor Neurologic: PERRL, EOMI, accommodation nl, no face palsy, no dysarthria CN's II- XI intact bilaterally. Weakness on right upper and lower extremity; able to lift arm and leg against gravity. No weakness appreciated on left lower extremity Psychiatric: A+Ox3, euthymic affect Principal Dx & Hospital Course #1 = Principal Diagnosis (1) Shortness of breath: (2) Aspiration pneumonia: (3) Ileus: (4) Supratherapeutic INR: (5) S/P endovascular aneurysm repair: (6) Chronic hypoxic respiratory failure: (7) History of CVA (cerebrovascular accident): (8) COPD (chronic obstructive pulmonary disease): Plan Pt is a 73-year-old male with complex medical history significant for COPD with chronic hypoxic respiratory failure on 3 L of O2 via NC, PAF, CAD, HTN, HLD, prior right thalamic CVA, T2DM, endovascular repair of AAA in February 2021 with repeat repair on 07/14/23 who presented to the ED secondary to shortness of breath. Pt was previously hospitalized at [facility] [place] for most recent endovascular AAA repair in July 2023 with complicated post-op course. His postoperative course involved ileus requiring patient to undergo parenteral nutrition. He developed urinary retention requiring Yun catheter placement. On postop day 4 he was noted to have significant cognitive changes involving speech and hemiparesis of right side. Initial CT scan was negative however MRI confirmed acute infarct in the left brigido, left thalamus, hippocampus, corpus c allosum, temporal and occipital lobes as well as bilateral cerebellum. CT of abdomen pelvis also confirmed development of right lower lobe possible aspiration and significant infarction of lower pole of left kidney. Once stabilized he was discharged to [facility] rehab where he was admitted on 07/22/2023. He was subsequently readmitted at [facility] with acute hypoxic respiratory failure and ileus requiring NG tube placement. There was also concern for GI Bleed. Overnight on August 01, pt decompensated once more requiring bipap and more confused. Also was in a fib with RVR and persistent ileus requiring NG Tube placement. Extensive discussion with pt's granddaughter and PODave Oh multiple times throughout the day. Agreeable to changing code status to DNR/DNI. States that pt has an advance directive with comfort measures in a situation like this. She stated that pt has been saying he wants to go home, is confused and has been pulling at the bipap. Would like to take him home as soon as possible with hospice. Would like to make pt comfort measures only at this time. Would like him to have some time where he is off bipap while here. Pt was made comfort measures only with goal of home with hospice. Per hospice agreeable to NG tube use at home for ileus. Per general Surgery: "Place NGT to low intermittent wall suction q4 hours x 1 hour, or as needed if patient develops nausea/vomiting. Otherwise maintain NGT to gravity. " Pt was discharged home with hospice services on 08/04/23. Pt was previously treated for the following while hospitalized: Acute on chronic hypoxic respiratory failure Possible aspiration pneumonia H/O COPD on 3 L of oxygen, bronchiectasis --CTA chest shows mucoid material within the trachea and right lower lobe bronchus. Advanced emphysema Was treated with IV Zosyn, nebulized bronchodilators and IV steroids, supplemental oxygen to keep saturation 88 to 92% Aspiration precautions Bipap with worsening symptoms A-fib RVR H/O paroxysmal A-fib Presented with supratherapeutic INR INR was reversed with vitamin K due to concern for GI bleed Check TSH Monitor and replete electrolytes as needed Received digoxin IV Lopressor as needed Cardiology consulted, appreciate recs A fib with RVR on 08/01- started on metoprolol IV 5mg q4h, pt unable to take home po metoprolol succinate 50mg BID. Discharged with metoprolol tartrate 50mg BID for NG tube use due to ileus Hypertension Elevated blood pressure Not being controlled with metoprolol 50 mg twice daily Received 1 dose of hydralazine without any effect Nitropaste Postoperative ileus H/O vascular surgery on July 14, 2023 Postoperative Period was complicated with ileus requiring peripheral parenteral nutrition. --CT abdomen/pelvis shows distention of year and fluid level of large and small bowel, moderate size inguinal hernia. Finding likely ileus; however close follow-up needed to exclude partial obstruction Continue bowel rest, IV fluids Continue NG tube Having BMs General Surgery consulted, appreciate recs Currently no indication for surgery Pt discharged with NG tube per family's request for comfort and hospice agreeable Concern for GI bleed Endovascular leak with recent endovascular repair at [facility]. In setting of supratherapeutic INR Coumadin, Plavix are on hold Started on Protonix drip Noted to have drop in hemoglobin to 9 from 11 on of this month Melanotic stool is noted as well that was positive for blood Vitamin K 10 mg IV was given by the night doc INR dropped to 1.2 as of 07/27/2023 Discussed with the slitting and shipping supervisor and the patient started on intravenous heparin low-dose without bolus Appreciate GI evaluation and recommendation-no evidence of acute GI bleed and no need to do for any scope. If hemoglobin keeps dropping the patient will need to be transferred to [place] for endovascular leak Hemoglobin remains stable-no evidence of GI bleed No more evidence of GI bleed Urinary retention with Yun in place Yun catheter was placed after urinary retention in post-op period Maintain Yun Trial of void after resolution of ileus. History of cardioembolic stroke Supratherapeutic INR Monitor INR INR 3.8 on discharge Was on statin CVA Patient developed right-sided weakness after the surgery. MRI showed cardioembolic stroke on posterior circulation Patient was placed on Coumadin and Plavix INR supratherapeutic on presentation Resume Coumadin, plavix as able PT OT evaluation Continue statin LFTs mildly elevated--consider to hold statin if LFTs worsen Chronic conditions: Hypertension Type 2 diabetes mellituscontinue on sliding scale, last a1c 5.1 on 07/18/23 Continue home medications as able Discharge Exam General: Alert, agitated. Psych: Agitated, pulling at bipap mask on face HEENT: NC/AT CV: Irregular rate and rhythm Resp: no increased effort of breathing, bipap mask on face Abdomen: Soft, distended Updated Medication List Medication Instructions Recorded Confirmed Type atorvastatin 40 mg tablet 80 mg PO DAILY 07/25/23 07/25/23 History baclofen 10 mg tablet 10 mg PO Q8H 07/25/23 07/25/23 History metoprolol tartrate 50 mg tablet 50 mg PO BID #60 tabs 08/04/23 Rx (Lopressor) Hospital Stay Data Consultations 07/25/23 09:42 ED Decision to Admit Stat 07/25/23 10:13 Consult General Surgery Routine 07/26/23 07:22 Consult Gastroenterology Routine 07/26/23 08:56 Consult Cardiology Routine 08/03/23 08:40 Consult Pulmonology Routine Diagnostic Imagining Performed 07/25/23 06:34 CTA abd pelvis wo/w con [CT angio abd pelvis wo/w con] Stat CTA chest dissec wo/w con [CT angio chest dissec wo/w con] Stat 08/02/23 09:16 CT Abd and Pelvis [CT abd pelvis oral con only] Routine 08/02/23 20:53 CT Abd and Pelvis [CT abd pelvis wo con] Urgent CT chest diagnostic wo con Urgent CT head/brain wo con Stat Chest X-Ray 07/25/23 05:43 XR chest 1V portable HISTORY: 73 years-old Male sob acute shortness of breath COMPARISON: KUB of same day TECHNIQUE: AP view of the chest FINDINGS: Partially imaged abdominal aortic endograft. No pneumothorax, pleural effusion or airspace consolidation. Eventration of the right hemidiaphragm. The heart is normal in size. The bones appear grossly intact. IMPRESSION: No acute process. ACT 112: Negative or not required by law. The above report was generated using voice recognition software. It may contain grammatical, syntax or spelling errors. Electronically signed by: Melvin Gonzalez M.D. 07/25/2023 7:02 AM KUB X-Ray 07/25/23 05:45 KUB HISTORY: Acute generalized abdominal pain with distention distended COMPARISON: None. FINDINGS: Gaseous distended loops of large and small bowel. Aortobiiliac stent graft is noted along with bilateral renal arterial stents. Apparent embolization coils project over the right abdomen. No renal calculi. No ureteral calculi. No pneumoperitoneum or pneumatosis. No fracture. IMPRESSION: Distended gas-filled loops of large and small bowel may represent ileus versus distal obstruction. Follow-up recommended. ACT 112: Negative or not required by law. The above report was generated using voice recognition software. It may contain grammatical, syntax or spelling errors. Electronically signed by: Melvin Gonzalez M.D. 07/25/2023 8:29 AM Abdomen/Pelvis CTA 07/25/23 06:34 CT angio abd pelvis wo/w con HISTORY: 73 years-old Male dissection/AAA rupture (recent repair, CVA, ileus) acute generalized abdominal pain with tachycardia. Abdominal aortic aneurysm repair 1 week earlier. COMPARISON: None TECHNIQUE: CTA abdomen and pelvis was obtained with and without IV contrast. Additional 3-D rendered images were generated from a separate workstation and submitted for review. A dose lowering technique was used consistent with the principals of MAYELIN. FINDINGS: Motion degraded exam. CTA: The heart is normal in size. Partially imaged coronary arterial calcifications. Aortobiiliac stent graft is patent and traverses a [place] infrarenal abdominal aortic aneurysm measuring approximately 6.4 x 6.3 cm. Within the lumen of the infrarenal abdominal aorta there is a 3.7 cm hyperdense focus on image 169 series 13 suggestive of an endoleak. There are additional endoleaks noted along the proximal aspect of the graft on image 124 series 13. Evaluation is limited secondary to surrounding streak artifact with embolization coils. The imaged femoral arteries are patent. Patent celiac, superior mesenteric and renal arterial grafts. There is apparent occlusion involving a left inferior pole renal arterial branch, suboptimally visualized secondary to the motion artifact. CT ABDOMEN/PELVIS: Pulmonary emphysema with right lower lobe mucus plugging and mild right lower lobe tree-in-bud nodules. 1.2 cm solid nodule noted within the right lower lobe on image 42. Right lower lobe pulmonary nodules measure up to 7 mm. Mild linear right basilar consolidation. Small left pleural effusion. Nonspecific heterogeneity of the spleen, adrenal glands and pancreas appear unremarkable. Cholelithiasis without CT evidence of acute cholecystitis. Hepatic cysts measure up to 4.7 cm. Additional ill-defined hypodensities of the liver which are mostly subcentimeter tightly to small to characterize. There is no hydronephrosis. There is an acute infarct of the inferior pole left kidney measuring up to approximate 4.7 cm. Decompressed urinary bladder with Yun catheter in place. Layering hyperdense material noted within the urinary bladder lumen. Prostatomegaly. No lymphadenopathy identified. Distended fluid-filled stomach. Indeterminate hyperdense material noted within the rectal lumen. Air and fluid filled loops of large and small bowel. Large bowel is dilated measuring up to 8.4 cm. Small bowel loops measure up to approximately 3 cm. There is a small fat and fluid filled right inguinal hernia. There is a moderate-sized left inguinal hernia which contains trace fluid, mesenteric fat and descending colon. Large bowel distal to this is also mildly dilated. Colonic diverticulosis. Mild generalized body wall edema. No acute fracture identified. Chronic L5 pars defects with grade 1 anterolisthesis. IMPRESSION: 1. Motion degraded exam. 2. Patent aortobiiliac stent graft with patent grafts involving the celiac, superior mesenteric and renal arteries. 3. [place] abdominal aortic aneurysm measures up to 6.4 cm. Endoleaks are noted involving the graft as above , suboptimally evaluated secondary to artifact. 4. There is apparent occlusion involving a left inferior pole renal arterial branch with a moderate sized acute infarct of the inferior pole left kidney. 5. Distended air and fluid-filled loops of large and small bowel. There is a moderate sized left inguinal hernia containing mesenteric fat and the descending sigmoid junction with gaseous distention also seen distal to this. Findings likely represent an ileus, however close follow-up is needed in order to exclude a partial obstruction. 6. Cholelithiasis. 7. Pulmonary emphysema, bibasilar mucous plugging and right lower lobe pulmonary nodules with small left pleural effusion. Please refer to the chest CT of same day for additional findings. ACT 112: Negative or not required by law. The above report was generated using voice recognition software. It may contain grammatical, syntax or spelling errors. Electronically signed by: Melvin Gonzalez M.D. 07/25/2023 8:03 AM Chest CTA 07/25/23 06:34 CHEST CTA for AORTIC DISSECTION CT DOSE: 3127.23 mGy.cm HISTORY: Shortness of breath. Tachycardia. PE / Dissection (recent AAA repair/CVA) TECHNIQUE: Multiaxial CT images of the chest were performed both before and after the intravenous administration of contrast to evaluate the aorta. 3D/MIP images were also obtained. Sagittal and coronal reformations were also reviewed. A dose lowering technique was utilized adhering to the principles of ALARA. COMPARISON STUDY: None. FINDINGS: Noncontrast imaging through the chest shows no evidence for an intramural hematoma within the thoracic aorta. Mild to moderate calcified plaque within the thoracic aorta. The thoracic aorta is normal in caliber with no evidence for a dissection. Please refer to the same day abdomen and pelvis CT for further evaluation of the stent graft repair of the aorta and proximal abdominal vessels. There is a trace left pleural effusion. The heart is normal in size. Mild left ventricular hypertrophy is noted. Moderate coronary artery calcifications. The main pulmonary arteries are patent. The study was not performed as a dedicated PE study. Normal esophagus. No mediastinal or hilar lymphadenopathy. No mediastinal hematoma. Mild superior endplate compression fractures at T12 and L1 are age indeterminate but likely chronic. No pneumothorax. Advanced emphysema is noted. Partial mucoid opacification of the trachea and right lower lobe bronchi with a linear density at the base the right lower lobe. This may represent atelectasis or a pneumonitis secondary to aspiration. There are 2 nodules within the right lower lobe measuring 7 mm and 1.1 cm on images 198 and 214, respectively. A few additional nodular densities within the right lower lobe. A 4 mm nodule within the right upper lobe on image 127. No evidence for pulmonary edema. A 4 mm nodule within the left lower lobe on image 194. A 4 mm nodule within the left upper lobe on image 135. IMPRESSION: 1. No evidence for an aortic dissection. 2. Please refer to same day abdomen and pelvis CT for further evaluation of the abdominal structures. 3. No evidence for a central pulmonary embolus. 4. Mucoid material within the trachea and right lower lobe bronchi which could be due to prior aspiration. Linear density at the right lower lobe may represent subsegmental atelectasis or an aspiration pneumonitis. 5. Scattered indeterminate pulmonary nodules with the largest in the ascending right lower lobe measuring 11 mm. [address] follow-up recommended to ensure stability. 6. Advanced emphysema. 7. Trace left pleural effusion. ACT 112: Negative or not required by law. Electronically signed by: Wilver Roman M.D. 07/25/2023 8:28 AM Chest X-Ray 07/26/23 01:00 XR chest 1V portable CLINICAL HISTORY: Nasogastric tube placement. COMPARISON STUDY: CTA of the abdomen and pelvis July 25, 2023. FINDINGS: Tip of nasogastric tube projects over the gastric cardia. The tube could be advanced an additional 4 cm. Multiple dilated loops of small and large bowel are partially imaged on this exam. There is emphysema. There is no evidence for free air. Endovascular stent graft and embolization coils are incidentally noted. IMPRESSION: 1. Tip of nasogastric tube projects at the gastric cardia. The tube could be advanced an additional 4 cm. 2. Partially visualized dilated large and small bowel, as shown on CTA of July 25, 2023. ACT 112: Negative or not required by law. Electronically signed by: Edouard Edgar M.D. 07/26/2023 7:04 AM Chest X-Ray 07/27/23 00:50 XR chest 1V portable CLINICAL HISTORY: low o2 COMPARISON STUDY: Chest CT July 25, 2023. Chest radiograph July 26, 2023. FINDINGS: Aortoiliac stent graft is partially imaged. Tip of nasogastric tube is below the lower aspect of the image but at least within the gastric cardia. Skin folds project over the chest. There is no pneumothorax or pleural effusion. Cardiomediastinal silhouette is normal. There is severe emphysema. Right lower lung densities persist. IMPRESSION: 1. No significant change in right lower lung densities. The appearance favors atelectasis although pneumonia/aspiration pneumonitis could appear similar. 2. Emphysema. ACT 112: Negative or not required by law. Electronically signed by: Edouard Edgar M.D. 07/27/2023 6:40 AM KUB X-Ray 07/27/23 07:52 KUB HISTORY: Acute generalized abdominal pain ileus COMPARISON: 07/25/2023 FINDINGS: Distal tip of enteric tube projects over the expected location of the gastric body. Cardiomegaly. Gaseous distended loops of large and small bowel redemonstrated. Bowel filled left inguinal hernia redemonstrated. Aortobiiliac stent graft is noted along with bilateral renal arterial stents. Apparent embolization coils project over the right abdomen. No renal calculi. No ureteral calculi. No pneumoperitoneum or pneumatosis. No fracture. IMPRESSION: 1. Similar appearance of the gaseous distended large and small bowel loops deleon ggestive of ileus versus distal obstruction. Follow-up recommended. 2. Bowel filled left inguinal hernia redemonstrated. 3. Distal tip of enteric tube projects over the gastric body. ACT 112: Negative or not required by law. The above report was generated using voice recognition software. It may contain grammatical, syntax or spelling errors. Electronically signed by: Melvin Gonzalez M.D. 07/27/2023 9:19 AM Chest X-Ray 07/27/23 07:55 XR chest 1V not portable CLINICAL HISTORY: Shortness of breath. COMPARISON STUDY: Chest CT July 25, 2023. Chest radiograph performed earlier today. FINDINGS: Tip of nasogastric tube is depicted on the KUB which will be reported separately. No pneumothorax or pleural effusion. There are severe emphysema. Cardiomediastinal silhouette is stable. Linear right lower lung densities remain unchanged. IMPRESSION: 1. No change in linear right basilar densities. The findings favor atelectasis although pneumonia or aspiration pneumonitis could appear similar. 2. Emphysema. ACT 112: Negative or not required by law. Electronically signed by: Edouard Edgar M.D. 07/27/2023 9:21 AM Chest X-Ray 07/29/23 12:48 XR chest 1V portable HISTORY: Shortness of breath. COMPARISON: Chest 07/27/2023. FINDINGS: Cardiac monitoring leads partially obscure the right hemithorax. Stable linear scarlike density at the right lung base. No new focal lung consolidations to suggest a pneumonia. No evidence for pulmonary edema. The heart is normal in size. No acute fractures. Emphysema again noted. IMPRESSION: No significant change compared to the prior study. No acute process. Emphysema again noted. ACT 112: Negative or not required by law. Electronically signed by: Wilver Roman M.D. 07/29/2023 2:51 PM KUB X-Ray 08/01/23 11:33 KUB HISTORY: Status post placement of an enteric tube ngt placement COMPARISON: 07/27/2023 FINDINGS: Distal tip of enteric tube projects over the expected location of the gastric body. Cardiomegaly. Gaseous distended loops of large and small bowel redemonstrated. Lower abdomen is excluded from the [id number]. Previously described bowel filled left inguinal hernia is not imaged. Aortobiiliac stent graft is noted along with bilateral renal arterial stents. Apparent embolization coils project over the right abdomen. No renal calculi. No ureteral calculi. No pneumoperitoneum or pneumatosis. No fracture. IMPRESSION: 1. Similar appearance of the gaseous distended large and small bowel loops suggestive of ileus versus distal obstruction. Follow-up recommended. 2. Distal tip of enteric tube projects over the gastric body. ACT 112: Negative or not required by law. The above report was generated using voice recognition software. It may contain grammatical, syntax or spelling errors. Electronically signed by: Melvin Gonzalez M.D. 08/01/2023 12:43 PM KUB X-Ray 08/01/23 16:52 KUB CLINICAL HISTORY: Enteric tube placement. FINDINGS: AP, portable, upright view of the lower chest and upper abdomen is compared to study performed earlier the same day 08/01/2023. Correlation is made with abdominal CT dated 07/25/2023. An enteric tube is unchanged in position. The tip projects below the diaphragm over the proximal stomach. No evidence of intraperitoneal free air is seen below the diaphragm. Gaseous distention of the bowel persists. An aortic stent graft is partially visualized. There is bibasilar scarring/atelectasis. The skeletal structures are osteopenic and appear intact. IMPRESSION: 1. An enteric tube is unchanged in position. See above. 2. Gaseous distention of the bowel persists. Electronically signed by: Jarred Wilson M.D. 08/01/2023 5:32 PM K[facility] X-Ray 08/02/23 01:55 KUB HISTORY: ng tube placement COMPARISON: KUB 08/01/2023. FINDINGS: Nasogastric tube terminates in the fundus of the stomach. Gaseous distention of the bowel remains unchanged. An aortic stent graft is again noted. No renal calculi. No ureteral calculi. No pneumoperitoneum or pneumatosis. IMPRESSION: 1. Nasogastric tube is unchanged in position and terminates in the proximal stomach 2. Gaseous distention of the visualized bowel again noted. ACT 112: Negative or not required by law. Electronically signed by: Wilver Roman M.D. 08/02/2023 12:03 PM Abdomen/Pelvis CT 08/02/23 20:53 Exam(s): CT ABDOMEN + PELVIS Without Contrast EXAM: CT Abdomen and Pelvis Without Intravenous Contrast CLINICAL HISTORY: Reason for exam: abdominal distension.. TECHNIQUE: Axial computed tomography images of the abdomen and pelvis without intravenous contrast. CTDI is 36.18 mGy and DLP is 1603.1 mGy-cm. Automated exposure control was utilized for the study. A dose lowering technique was utilized adhering to the principles of ALARA. COMPARISON: 07/25/23 FINDINGS: Lung bases: Mild to moderate emphysema in the lung bases. Focus of subsegmental atelectasis seen in the right lower lobe. There is mucous plugging of the right lower lobe bronchial tree. Pleural space: Small left pleural effusion. ABDOMEN: Liver: Unremarkable. Gallbladder and bile ducts: Layering high density in the gallbladder could be from microlithiasis. No calcified stones. No ductal dilation. Pancreas: Unremarkable. No ductal dilation. Spleen: Unremarkable. No splenomegaly. Adrenals: Unremarkable. No mass. 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 No obstructing stones. No hydronephrosis. Stomach and bowel: Moderate fluid and air distention of multiple bowel loops is noted. No mucosal thickening. There is left inguinal hernia containing a loop of bowel, similar to prior study PELVIS: Appendix: No findings to suggest acute appendicitis. Bladder: Unremarkable. No stones. Reproductive: Unremarkable as visualized. ABDOMEN and PELVIS: Intraperitoneal space: Unremarkable. No free air. No significant fluid collection. Bones/joints: No acute fracture. No dislocation. Moderate degenerative disc disease changes seen in the lumbar spine. Soft tissues: Mild cutaneous tissue edema in the abdominal and pelvic harrell. Vasculature: There is aortobiiliac endovascular stent graft located in abdominal aortic aneurysm sac. Multiple stents are seen in bilateral renal arteries, celiac artery and superior mesenteric artery. Lymph nodes: Unremarkable. No enlarged lymph nodes. IMPRESSION: 1. Fluid and air distention of small and large bowel loops which could be from ileus 2. Status post endovascular stent graft in abdominal aortic aneurysm. Previously noted endoleak cannot be evaluated without IV contrast. 3. Right basilar aspiration changes. Small left pleural effusion Electronically signed by: Neeraj Kiran MD 08/02/23 21:[address] 08/02/23 20:53 Exam(s): CT CHEST Without Contrast EXAM: CT Chest Without Intravenous Contrast CLINICAL HISTORY: Reason for exam: sob.. TECHNIQUE: Axial computed tomography images of the chest without intravenous contrast. CTDI is 36.18 mGy and DLP is 1603.1 mGy-cm. Automated exposure control was utilized for the study. A dose lowering technique was utilized adhering to the principles of ALARA. COMPARISON: No relevant prior studies available. FINDINGS: Lungs: There is bilateral centrilobular emphysema. Atelectatic changes with mucous plugging in the right lower lobe bronchial tree. No mass. Pleural space: Small left pleural effusion. No pneumothorax. Heart: Unremarkable. No cardiomegaly. No significant pericardial effusion. No significant coronary artery calcifications. Bones/joints: Unremarkable. No acute fracture. No dislocation. Soft tissues: Unremarkable. Vasculature: Unremarkable. No thoracic aortic aneurysm. Lymph nodes: Unremarkable. No enlarged lymph nodes. IMPRESSION: 1. Right lower lobe atelectasis with mucous plugging of the bronchial tree, suggestive of aspiration changes 2. Small left pleural effusion 3. Pulmonary emphysema Electronically signed by: Neeraj Kiran MD 08/02/23 21:[address] 08/02/23 20:53 Exam(s): CT HEAD Without Contrast EXAM: CT Head Without Intravenous Contrast CLINICAL HISTORY: Reason for exam: AMS. TECHNIQUE: Axial computed tomography images of the head/brain without intravenous contrast. CTDI is 36.18 mGy and DLP is 1603.1 mGy-cm. Automated exposure control was utilized for the study. A dose lowering technique was utilized adhering to the principles of ALARA. COMPARISON: No relevant prior studies available. FINDINGS: Brain: Unremarkable. No hemorrhage. No significant white matter disease. No edema. Ventricles: Unremarkable. No ventriculomegaly. Bones/joints: Unremarkable. No acute fracture. Soft tissues: Unremarkable. Sinuses: Unremarkable as visualized. No acute sinusitis. Mastoid air cells: Unremarkable as visualized. No mastoid effusion. IMPRESSION: Normal head/brain CT. Electronically signed by: Neeraj Kiran MD 08/02/23 21:57 PM KUB X-Ray 08/02/23 22:12 KUB CLINICAL HISTORY: Enteric tube placement. FINDINGS: An AP, portable, upright view of the lower chest and upper abdomen is compared to abdominal radiographs and CT performed earlier the same day 08/02/2023. An enteric tube is in place. This has been slightly advanced as compared to today's earlier examination with the tip projecting over the proximal stomach. Distended and gas-filled bowel loops are seen in the upper abdomen. No evidence of intraperitoneal free air is seen below the diaphragm. An aortic stent graft is in place. The lung bases are clear as imaged. IMPRESSION: 1. Enteric tube placement as above. 2. Distended gas-filled loops of bowel are seen below the diaphragm. Electronically signed by: Jarred Wilson M.D. 08/03/2023 7:30 AM Discharge Instructions Given to Patient (Per Discharging Provider) Mr. Byrne, We are discharging you home with hospice services per the wishes of you and your family members. You are going home with a nasogastric tube for continued comfort to be further managed by Hospice. Your General Surgery team left the instructions below for you. Total Time Total Time Spent Total Time Spent (In Minutes): > 30 minutes
[2023-08-04 14:56] VITALS: BP 157/91; PULSE 107
== END 2023-08-04 15:47 | disposition hospice, home (50) | DRG 177 ==
LOC: ED 05:31 → EDINP 10:09 → SUATTDRO 10:09 → 4W 15:18
DX: Z99.81 Dependence on supplemental oxygen; Z86.73 Personal history of transient ischemic attack (TIA), and cerebral infarction without residual deficits; R33.9 Retention of urine, unspecified; Z79.899 Other long term (current) drug therapy; J96.21 Acute and chronic respiratory failure with hypoxia; J44.9 Chronic obstructive pulmonary disease, unspecified; Z11.52 Encounter for screening for COVID-19; Z66 Do not resuscitate; Z79.01 Long term (current) use of anticoagulants; E78.5 Hyperlipidemia, unspecified; K56.7 Ileus, unspecified; I48.0 Paroxysmal atrial fibrillation; K91.89 Other postprocedural complications and disorders of digestive system; Z88.8 Allergy status to other drugs, medicaments and biological substances; J69.0 Pneumonitis due to inhalation of food and vomit; Z88.1 Allergy status to other antibiotic agents; Z87.891 Personal history of nicotine dependence; E11.9 Type 2 diabetes mellitus without complications; Z79.02 Long term (current) use of antithrombotics/antiplatelets